=== PATIENT | female | born 1955 | race Caucasian/White ===

== ENCOUNTER → 2018-01-26 | Outpatient (CLI) | payer MEDICARE ==
--- NOTE | 2018-01-26 21:45 | BD ---
EXAMINATION TYPE: MG DEXA axial skeleton. DATE OF EXAM: 01/26/2018 COMPARISON: 07.17.2009 CLINICAL HISTORY: 62 YR OLD FEMALE....ICD-10 CODE: Z78.0 MENOPAUSAL STATE Height: 64 Weight: 190 FRAX RISK QUESTIONS: Alcohol (3 or more units per day): NO Family History (Parent hip fracture): NO FX Glucocorticoids (More than 3mos): NO (Ex: prednisone, prednisolone, methylprednisolone, dexamethasone, and hydrocortisone). History of Fracture in Adulthood: NO Secondary Osteoporosis: NO 1. Type 1 Diabetes: NO 2. Hyperthyroidism: NO 3. Menopause before 45: NO 4. Malnutrition: NO 5. Chronic liver disease: NO Rheumatoid Arthritis: NO Current Tobacco Use: NO RISK FACTORS HISTORY OF: Family History of Osteoporosis: YES, MOTHER NO FX Active: NO...USING CANE, UNSTEADY Diet low in dairy products/other sources of calcium: NO Postmenopausal woman: YES AT 50 YRS OLD Frequent falls: UNSTEADY, USING CANE Hyperparathyroidism: NO Adrenal Insufficiency: NO MEDICATIONS: Thyroid Medications: YES, SYNTHROID, 10 YRS Additional Medications: CALCIUM AND VIT D, ANTI ANXIETY AND ANTIDEPRESSANT, BP MEDS Additional History: NONE TO NOTE STATES PATIENT, EXCEPT OSTEOARTHRITIS.....PT IN SEVERE PAIN EXAM MEASUREMENTS: Bone mineral densitometry was performed using the [employer] System. Bone mineral density as measured about the Lumbar spine is: ----- L1-L4(G/cm2): 1.004 T Score Values are as follows: ----- L1: -2.9 ----- L2: -2.4 ----- L3: 1.1 ----- L4: -1.6 ----- L1-L4: -1.5 Bone mineral density has: Decreased -8.8% since study of: 07.17.2009 Bone mineral density about the R hip (g/cm2): 0.806 Bone mineral density about the L hip (g/cm2): 0.870 T Score values are as follows: -----R Neck: -1.9 -----L Neck: -1.9 -----R Total: -1.6 -----L Total: -1.1 Bone mineral density has: Decreased -10.0% since study of: 08.25.2009 FRAX%S: THERE IS A 9.3% CHANCE OF A MAJOR OSTEOPOROTIC FX AND A 1.1% FOR HIP FX....PROBABILITY OF F X IN 10 YRS TIME IMPRESSION: Osteoporosis (T Score less than -2.5) as averaged between T score values of L1 and L2. There is increased fracture risk and therapy is usually indicated based on age. Re-Screen 1-2 years. NOTE: T-SCORE=SD OF THE YOUNG ADULT MEAN.
--- NOTE | 2018-01-28 08:18 | MM ---
Reason for exam: screening (asymptomatic). Last mammogram was performed 3 years and 3 months ago. History: Patient is postmenopausal. Reduction of the left breast, 1991. Reduction of the right breast, 1991. Took estrogen for 4 years beginning at age 49. Took progesterone for 4 years beginning at age 49. Physical Findings: A clinical breast exam by your physician is recommended on an annual basis and results should be correlated with mammographic findings. MG Screening Mammo w CAD Bilateral CC and MLO view(s) were taken. Prior study comparison: October 24, 2014, bilateral MG screening mammo w CAD. January 22, 2011, bilateral digital screening mammo w/CAD. There are scattered fibroglandular densities. No significant changes when compared with prior studies. ASSESSMENT: Benign, BI-RAD 2 RECOMMENDATION: Routine screening mammogram of both breasts in 1 year.
== END | disposition home or self-care (01) ==
LOC: RADMAMWWP 14:40
PROVIDERS: ATTEND Family Medicine
DX: Z12.31 Encounter for screening mammogram for malignant neoplasm of breast (principal); M81.0 Age-related osteoporosis without current pathological fracture; Z78.0 Asymptomatic menopausal state
CPT/HCPCS: 77067; 77080

== ENCOUNTER 2018-05-31 07:18 | Day surgery (SDC) | payer MEDICARE ==
[2018-05-27 11:38] VITALS: BMI 31.4
[~2018-05-31 07:18] MED LIST: LACTATED RINGERS 1,000 ML IV SCH
[2018-05-31 08:01] VITALS: TEMP 97.7
[2018-05-31] MEDS ORDERED: LIDOCAINE 1% 20 ML VIAL (10MG/ML) FOR IV START INTRADERMA ONE (08:03)
[2018-05-31] MEDS ORDERED: PROPOFOL 10 MG/ML 20 ML VIAL IV ONE (08:14)
[2018-05-31] MEDS ORDERED: LIDOCAINE 1% INJ 10MG/ML (20 ML MDV) ONE (08:14)
--- NOTE | 2018-05-31 08:37 | P.PCN ---
Date of Procedure: 05/31/18 Procedure(s) Performed: Procedure: Total colonoscopy. Preoperative diagnosis: Screening for neoplasia. Postoperative diagnosis: Exam within normal limits. Preparation: HalfLytely prep. Sedation: Was provided by anesthesia. Brief clinical history: The patient is 62-year-old female who is scheduled for this evaluation for screening for neoplasia. She had a prior exam at age 50. At this time, he has no abdominal complaints, bleeding or anemia. Procedure: With the patient on her left lateral decubitus position and after informed consent and adequate sedation, the perianal area was inspected and it did not show any fissures or fistulas. There were no masses felt on digital rectal examination. The Olympus CFQ 160L video colonoscope was then inserted in the rectum in the usual fashion and advanced to the cecum. The mucosa appeared healthy. No polyps or tumors were seen or any obvious pathology. I retroflexed the endoscope in the rectum before the endoscope was withdrawn. The patient tolerated the procedure well. Plan: The patient was reassured. She will follow-up with you as planned and I recommended repeat exam in 10 years.
[2018-05-31 08:38] VITALS: RESP 16
[2018-05-31 08:49] VITALS: PULSE 81
[2018-05-31 09:05] VITALS: BP 127/86
== END 2018-05-31 09:11 | disposition home or self-care (01) ==
LOC: ORWHC2ENDO 07:18
DX: Z12.11 Encounter for screening for malignant neoplasm of colon (principal); M79.7 Fibromyalgia; K21.9 Gastro-esophageal reflux disease without esophagitis; I10 Essential (primary) hypertension; M19.90 Unspecified osteoarthritis, unspecified site; E07.9 Disorder of thyroid, unspecified; F41.9 Anxiety disorder, unspecified; Z79.890 Hormone replacement therapy; Z79.899 Other long term (current) drug therapy
CPT/HCPCS: J2001; J2704; G0121

== ENCOUNTER 2018-09-29 15:46 | Emergency (ER) | payer MEDICARE ==
[2018-09-29 16:00] VITALS: BP 149/92; PULSE 82; RESP 18; TEMP 98.2
[2018-09-29] MEDS ORDERED: DIPH,PERTUS(ACELL)TETVAC-LF 0.5 ML VIAL IM ONE (16:10)
--- NOTE | 2018-09-29 16:16 | ED ---
General Adult HPI - General Chief complaint: Fall Stated complaint: Fall Time Seen by Provider: 09/29/18 16:01 Source: patient, family, RN notes reviewed Mode of arrival: wheelchair Limitations: no limitations - History of Present Illness Initial comments: Patient is a pleasant 63-year-old female presenting to the emergency department following a fall. 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 Patient did land on her right arm. Patient has some history of previous arthritis of her right arm however discomfort is much more severe at this point. Discomfort is greatly increased with movement. Patient did scratch her nose and under her right eye. Patient only has mild discomfort of her nose. Patient denies any loss of consciousness. Patient denies being on any blood thinners. No confusion. No neck or back pain. No chest pain or dyspnea. No abdominal pain. No lower extremity or left upper extremity injury. - Related Data Home Medications Medication Instructions Recorded Confirmed ALPRAZolam [Xanax] 1 mg PO BID 01/01/16 05/27/18 Levothyroxine Sodium [Synthroid] 112 mcg PO DAILY 01/01/16 05/27/18 Lisinopril-Hctz 20-25 mg 1 tab PO DAILY 01/01/16 05/27/18 [Zestoretic 20-25] Multivitamins, Thera [Multivitamin] 1 tab PO DAILY 01/01/16 05/27/18 Oxybutynin Chloride [Ditropan XL] 15 mg PO DAILY 01/01/16 05/27/18 Calcium Carbonate [Calcium] 500 mg PO BID 05/01/16 05/27/18 Cyanocobalamin [Vitamin B-12] 1,000 mcg PO DAILY 05/01/16 05/27/18 Previous Rx's Medication Instructions Recorded Hydrocodone/Acetaminophen [Lenox 2 each PO Q6HR PRN #18 tab 09/29/18 5-325] Allergies Allergy/AdvReac Type Severity Reaction Status Date / Time No Known Allergies Allergy Verified 05/31/18 08:11 Review of Systems ROS Statement: Those systems with pertinent positive or pertinent negative responses have been documented in the HPI. ROS Other: All systems not noted in ROS Statement are negative. Constitutional: Denies: fever Eyes: Denies: eye pain ENT: Denies: ear pain Respiratory: Denies: cough Cardiovascular: Denies: chest pain, palpitations Endocrine: Denies: fatigue Gastrointestinal: Denies: abdominal pain Genitourinary: Denies: dysuria Musculoskeletal: Denies: back pain Skin: Denies: lesions Neurological: Denies: headache, weakness, confusion Past Medical History Past Medical History: Fibromyalgia, GERD/Reflux, Hypertension, Musculoskeletal Disorder, Osteoarthritis (OA), Thyroid Disorder Additional Past Medical History / Comment(s): CHRONIC LOWER BACK PAIN, History of Any Multi-Drug Resistant Organisms: None Reported Past Surgical History: Bariatric Surgery, Bladder Surgery, Breast Surgery Additional Past Surgical History / Comment(s): LAP BAND, BLADDER SLING, TAI. BREAST REDUCTION, EYE LID SURGERY Past Anesthesia/Blood Transfusion Reactions: No Reported Reaction, Motion Sickness Past Psychological History: Anxiety, Depression, Panic Disorder Smoking Status: Never smoker Past Alcohol Use History: Rare Past Drug Use History: None Reported - Past Family History Mother Family Medical History: Diabetes Mellitus, Hypertension Additional Family Medical History / Comment(s): OBESITY, NEUROPATHY-EVENTALLY IN W/C -COULDN'T FEEL FEET Father Family Medical History: No Reported History Additional Family Medical History / Comment(s): AGE 92-JUST DROVE UP FROM [place] FOR GRANDSON'S General Exam Limitations: no limitations General appearance: alert, in no apparent distress Head exam: Present: other (Nasal abrasions and swelling, mild. Abrasions under the right eye without significant tenderness to palpation.) Eye exam: Present: normal appearance, PERRL, EOMI. Absent: nystagmus ENT exam: Present: normal oropharynx Neck exam: Present: normal inspection, full ROM. Absent: tenderness Respiratory exam: Present: normal lung sounds bilaterally Cardiovascular Exam: Present: regular rate, normal rhythm GI/Abdominal exam: Present: soft. Absent: tenderness Extremities exam: Present: tenderness (Moderate tenderness right upper humerus region), other (Decreased range of motion right shoulder and right elbow secondary to pain. Distally the extremity is neurovascularly intact.) Back exam: Present: normal inspection. Absent: tenderness, vertebral tenderness Neurological exam: Present: alert, oriented X3, CN II-XII intact. Absent: motor sensory deficit Expanded Neurological exam: Present: protecting the airway Patient oriented to: Present: person, place, time Speech: Present: fluid speech Cranial nerves: EOM's Intact: Normal Motor strength exam: RUE: 5 (Limited range of motion secondary to pain does limit exam somewhat), LUE: 5 Eye Response: (4) open spontaneously Motor Response: (6) obeys commands Verbal Response: (5) oriented Psychiatric exam: Present: normal affect, normal mood Skin exam: Present: abrasion (Nasal and right infraorbital region) Course Vital Signs 09/29/18 15:55 Temperature 98.2 F Pulse Rate 82 Respiratory 18 Rate Blood Pressure 149/92 O2 Sat by Pulse 98 Oximetry Medical Decision Making - Medical Decision Making Patient reevaluated. Patient and family updated. - Radiology Data Interpreted by me: X-ray of the right humerus does show proximal right humeral fracture. X-ray of the nasal bones does show fracture. Disposition Clinical Impression: Fall, Nasal fracture, Proximal humerus fracture Disposition: HOME SELF-CARE Condition: Stable Instructions: Arm Fracture in Adults (ED), Nasal Fracture (ED) Additional Instructions: Please follow-up with primary care physician and orthopedics in the next couple of days for recheck. Ice to affected area. Return for increased pain, weakness , worsening or changing symptoms or other concerns. Do not take Lenox with Xanax. Prescriptions: Hydrocodone/Acetaminophen [Lenox 5-325] 2 each PO Q6HR PRN #18 tab PRN Reason: Pain Is patient prescribed a controlled substance at d/c from ED?: Yes When asked, does pt state using other controlled substances?: Yes If prescribed controlled substance>3 days was MAPS reviewed?: Prescribed <3 Days If opioid is for acute pain is fill amount 7 days or less?: Yes If Rx opioid, was Start Talking consent form obtained?: Yes Referrals: Jeff Seals MD [Primary Care Provider] - 1-2 days Time of Disposition: 16:37
--- NOTE | 2018-09-29 16:25 | XR ---
EXAMINATION TYPE: XR humerus RT DATE OF EXAM: 09/29/2018 CLINICAL HISTORY: Fall injury with pain. TECHNIQUE: Two views of the right humerus are obtained. COMPARISON: None. FINDINGS: Demineralization is seen. There is acute comminuted displaced fracture proximal humeral met aphysis with impaction of distal component. Some fracture fragments involving greater tuberosity are felt present. Glenohumeral joint is maintained. Visualized right elbow joint is felt within normal l imits. The overlying soft tissue appears within normal limits. IMPRESSION: Acute comminuted displaced fracture proximal humeral metaphysis.
--- NOTE | 2018-09-29 16:26 | XR ---
EXAMINATION TYPE: XR nasal bone DATE OF EXAM: 09/29/2018 COMPARISON: NONE HISTORY: Fall injury with pain and abrasions. TECHNIQUE: Complete nasal bones with both lateral projections on frontal projection. FINDINGS: Lucency through the nasal bridge is felt to reflect suture without significant displacement or soft tissue swelling. No acute displaced fracture is evident. Nasal septum remains midline. IMPRESSION: As above.
[2018-09-29] MEDS ORDERED: HYDROcodone/APAP 5-325MG 1 EACH TAB PO STA (16:34)
== END 2018-09-29 16:49 | disposition home or self-care (01) ==
LOC: EC 15:46
DX: S02.2XXA Fracture of nasal bones, initial encounter for closed fracture (principal); S42.201A Unspecified fracture of upper end of right humerus, initial encounter for closed fracture; I10 Essential (primary) hypertension; E07.9 Disorder of thyroid, unspecified; F41.0 Panic disorder [episodic paroxysmal anxiety]; F32.9 Major depressive disorder, single episode, unspecified; Z79.899 Other long term (current) drug therapy; Z23 Encounter for immunization; W10.9XXA Fall (on) (from) unspecified stairs and steps, initial encounter; Y92.89 Other specified places as the place of occurrence of the external cause
CPT/HCPCS: 70160; 90471; 90715; 99283

== ENCOUNTER → 2018-10-01 | Outpatient (CLI) | payer MEDICARE ==
--- NOTE | 2018-10-01 08:52 | CT ---
EXAMINATION TYPE: CT shoulder RT wo con DATE OF EXAM: 10/01/2018 COMPARISON: X-ray dated 09/29/2018 HISTORY: Fractured right shoulder CT DLP: 343.[address] of the right shoulder with reconstruction imaging. TECHNIQUE: Unenhanced CT of the right shoulder was performed with bone and soft tissue window setting s submitted in the axial coronal and sagittal planes. At a separate workstation 3-D TR imaging was o btained. FINDINGS: There is impacted right humeral neck fracture with the rotation of the humeral head ventral ly. A fracture extends into the greater tuberosity. There is also lesser tuberosity component noted. There is evidence of hemarthrosis. No additional fractures are seen within the [id number]. No evid ence for subacromial impingement as there is a flat acromium. No soft tissue masses appreciated. Vi sualized portions of the right lung demonstrate right apical scarring. IMPRESSION: 1. Proximal right humeral fracture as noted.
== END ==
LOC: RADCTMAIN 08:13
PROVIDERS: ATTEND Orthopaedic Surgery
DX: S42.201A Unspecified fracture of upper end of right humerus, initial encounter for closed fracture (principal)

== ENCOUNTER → 2018-12-06 | Outpatient (CLI) | payer MEDICARE ==
[~2018-12-06] MED LIST changes: +DENOSUMAB 60 MG/ML 1 ML SYRINGE SQ ONE; -LACTATED RINGERS 1,000 ML IV SCH
[2018-12-06 14:00] VITALS: BP 128/81; PULSE 66; RESP 16; TEMP 98.3
== END ==
LOC: PROCWHC3 13:44
PROVIDERS: ATTEND Family Medicine
DX: M80.00XS Age-related osteoporosis with current pathological fracture, unspecified site, sequela (principal)
CPT/HCPCS: 96372; J0897

== ENCOUNTER → 2019-03-17 | Outpatient (CLI) | payer MEDICARE ==
--- NOTE | 2019-03-21 08:05 | MM ---
Reason for exam: screening (asymptomatic). Last mammogram was performed 1 year and 2 months ago. History: Patient is postmenopausal. Reduction of the left breast, 1991. Reduction of the right breast, 1991. Took estrogen for 4 years beginning at age 49. Took progesterone for 4 years beginning at age 49. Physical Findings: A clinical breast exam by your physician is recommended on an annual basis and results should be correlated with mammographic findings. MG Screening Mammo w CAD Bilateral CC and MLO view(s) were taken. Prior study comparison: January 26, 2018, bilateral MG screening mammo w CAD. October 24, 2014, bilateral MG screening mammo w CAD. There are scattered fibroglandular densities. No significant changes when compared with prior studies. ASSESSMENT: Negative, BI-RAD 1 RECOMMENDATION: Routine screening mammogram of both breasts in 1 year.
== END | disposition home or self-care (01) ==
LOC: RADMAMWWP 14:41
PROVIDERS: ATTEND Obstetrics & Gynecology
DX: Z12.31 Encounter for screening mammogram for malignant neoplasm of breast (principal)
CPT/HCPCS: 77067

== ENCOUNTER → 2019-03-23 | Outpatient (CLI) | payer MEDICARE ==
[2019-03-23 16:45] VITALS: BP 123/84; PULSE 101; RESP 16; TEMP 98.1; BMI 29.9
--- NOTE | 2019-03-23 17:29 | P.HPBAR ---
Bariatric H&P - History & Physicial H&P Date: 03/23/19 History & Physicial: Visit/CC: band folow-up Patient initial contact: Initial weight: 111.13 kg Initial weight in pounds: 245.00 Height: 5 ft 5.5 in Initial BMI: 40.1 Last weight: Current weight: 83.007 kg Current weight in pounds: 183.00 Current BMI: 29.9 [place] body weight (based on NIH guidelines): 57.833 kg Excess body weight loss: 52.7% The patient is a 63 year-old F who presents for Bariatric Assessment. HPI: She is having problems with her band. She reports troubles with swallowing. Recommend referral to supervisor travel information center, also recommend esophogram Past Medical History Past Medical History: Fibromyalgia, GERD/Reflux, Hypertension, Musculoskeletal Disorder, Osteoarthritis (OA), Thyroid Disorder Additional Past Medical History / Comment(s): CHRONIC LOWER BACK PAIN, History of Any Multi-Drug Resistant Organisms: None Reported Past Surgical History: Bariatric Surgery, Bladder Surgery, Breast Surgery Additional Past Surgical History / Comment(s): LAP BAND, BLADDER SLING, TAI. BREAST REDUCTION, EYE LID SURGERY Past Anesthesia/Blood Transfusion Reactions: No Reported Reaction, Motion Sickness Past Psychological History: Anxiety, Depression, Panic Disorder Additional Psychological History / Comment(s): PT'S SON JUST 2 WEEKS AGO- AUTOPSY RESULTS NOT BACK YET-PT TEARY AT TIMES Smoking Status: Never smoker Past Alcohol Use History: Rare Past Drug Use History: None Reported - Past Family History Mother Family Medical History: Diabetes Mellitus, Hypertension Additional Family Medical History / Comment(s): OBESITY, NEUROPATHY-EVENTALLY IN W/C -COULDN'T FEEL FEET Father Family Medical History: No Reported History Additional Family Medical History / Comment(s): AGE 92-JUST DROVE UP FROM [place] FOR GRANDSON'S Surgical - Exam Vital Signs Temp Pulse Resp BP 98.1 F 101 H 16 123/84 03/23/19 16:41 03/23/19 16:41 03/23/19 16:41 03/23/19 16:41 Bariatric Checklist Checklist: Plan: Checklist: EGD: 1. Hiatal hernia: 2. H. Pylori: HgbA1c: Vitamin D: Smoking: Never smoker Primary care physician referral: Psychiatry clearance: Cardiology clearance: Sleep study: Diet journal: VTE risk score: VTE risk level: Rehab needs at discharge:
== END ==
LOC: BARWHC3 15:32
PROVIDERS: ATTEND Surgery Plastic and Reconstructive Surgery
DX: Z48.815 Encounter for surgical aftercare following surgery on the digestive system (principal); Z98.84 Bariatric surgery status
CPT/HCPCS: 99212

== ENCOUNTER → 2019-03-31 | Outpatient (CLI) | payer MEDICARE ==
--- NOTE | 2019-03-31 11:56 | FL ---
EXAMINATION TYPE: FL barium swallow DATE OF EXAM: 03/31/2019 LAP BANDING LIMITED ESOPHAGRAM: CLINICAL HISTORY: History of lap band placed 2001 with dysphagia per order. Some recent weight gain. Increasing epigastric and abdominal pain. Last change in fill slight increase 2 years ago. TECHNIQUE: Limited esophagram is performed utilizing 2-3 oz of barium. A total of 0.25 minutes of fl uoroscopic time was utilized during procedure. 35 spot images are saved to PACS system. COMPARISON: None. FINDINGS: Pre-procedure slimer image shows lap band in satisfactory position in proximal stomach ju st below the gastroesophageal junction. Angle is felt within normal limits. Overall nonobstructive emmanuelle wel gas pattern. Dextroconvex scoliosis centered about the lumbar spine is noted. The patient then drank oral contrast. There is satisfactory flow of contrast along the course of the esophagus. There is good flow of contrast along the course of the lap band, there is no evidence of contrast extravasation to suggest leak. There is no lap band slippage appreciated. IMPRESSION: No evidence of lap band slippage or significant obstruction.
[2019-03-31 13:14] LABS: HGB 13.9 gm/dL (11.4-16.0); MCHC 33.1 g/dL (31.0-37.0); MCV 96.8 fL (80.0-100.0); Mean Platelet Volume 6.9; Platelet Count 280 k/uL (150-450); RBC 4.34 m/uL (3.80-5.40); RDW 14.1 % (11.5-15.5); WBC 7.3 k/uL (3.8-10.6)
[2019-03-31 13:28] LABS: Partial Thromboplastin Time 26.8 sec (22.0-30.0); Prothrombin Time 10.4 sec (9.0-12.0)
[2019-03-31 13:31] LABS: ALT 37 U/L (9-52); AST 30 U/L (14-36); Albumin 4.7 g/dL (3.5-5.0); Alkaline Phosphatase 81 U/L (38-126); Anion Gap 10 mmol/L; Blood Urea Nitrogen 20 mg/dL (7-17); Calcium 10.3 mg/dL (8.4-10.2); Carbon Dioxide 28 mmol/L (22-30); Chloride 98 mmol/L (98-107); Cholesterol 239 mg/dL (<200); Glucose 80 mg/dL (74-99); HDL Cholesterol 63 mg/dL (40-60); LDL Cholesterol,Calculated 136 mg/dL (0-99); Magnesium 1.5 mg/dL (1.6-2.3); Phosphorus 3.3 mg/dL (2.5-4.5); Potassium 4.3 mmol/L (3.5-5.1); Sodium 136 mmol/L (137-145); Total Bilirubin 0.7 mg/dL (0.2-1.3); Total Protein 7.5 g/dL (6.3-8.2); Triglycerides 199 mg/dL (<150)
[2019-03-31 18:08] LABS: Parathyroid Hormone Intact 45.7 pg/mL (14.0-72.0)
[2019-03-31 18:45] LABS: Iron Saturation 38.34 (12.00-45.00)
[2019-03-31 18:53] LABS: Vitamin D 25 Hydroxy 34.6 ng/mL (30.0-100.0)
[2019-03-31 19:04] LABS: Folate, Serum >24.0 ng/mL
[2019-03-31 22:13] LABS: Hemoglobin A1C 5.2 % (4.0-6.0)
[2019-04-01 12:14] LABS: Zinc, Serum 69 ug/dL (60-130)
[2019-04-02 19:33] LABS: Selenium 135 mcg/L (63-160)
[2019-04-04 07:41] LABS: Vit B1(Thiamine) 70 ug/L (38-122)
[2019-04-04 08:31] LABS: Vitamin A 70 ug/dL (38-106)
== END | disposition home or self-care (01) ==
LOC: RADFLWHC 10:39
PROVIDERS: ATTEND Surgery Plastic and Reconstructive Surgery
DX: R13.10 Dysphagia, unspecified (principal); E66.01 Morbid (severe) obesity due to excess calories; E21.1 Secondary hyperparathyroidism, not elsewhere classified; D50.9 Iron deficiency anemia, unspecified; E55.9 Vitamin D deficiency, unspecified; N19 Unspecified kidney failure; K74.1 Hepatic sclerosis; K50.90 Crohn's disease, unspecified, without complications; K90.9 Intestinal malabsorption, unspecified
CPT/HCPCS: 36415; 74220; 80053; 80061; 82306; 82525; 82607; 82728; 82746; 83036; 83540; 83550; 83735; 83970; 84100; 84134; 84255; 84425; 84443; 84590; 84630; 85027; 85610; 85730

== ENCOUNTER → 2019-05-05 | Outpatient (CLI) | payer MEDICARE ==
[2019-05-05 10:32] VITALS: BP 130/78; PULSE 79; TEMP 98.3; BMI 30.4
--- NOTE | 2019-05-05 10:49 | P.PN ---
Subjective Progress Note Date: 05/05/19 DATE OF CONSULTATION: 05/05/2019 CHIEF COMPLAINT: Morbid obesity. HISTORY OF PRESENT ILLNESS: Yesi Gastelum is 63-year-old female who comes in with an adjustable gastric band from 2001. Her highest weight at that time was 245 pounds. She was referred to see the prosecuting attorney. Now she reports long stand ing problems since her band. She has been diagnosed with Lupus! She is aware that lupus is contraindicated for her band. At her height of 5 foot 5.5 inches, her ideal body weight is 149 pounds. Her h ighest weight was 245 pounds. Her body mass index was 40.9. Today she comes in weighing 185 pounds from 183 pounds, 1 month ago. She has gained 3 pounds in 1 month. Lifetime weight loss of 60 pounds. Percent excess weight loss of 62% lifetime. BMI down to 30.4. PAST MEDICAL HISTORY: 1. Morbid obesity due to excess calories, BMI 40.9 2. Hypertension. 3. Hypothyroidism. 4. Depression. 5. Vitamin B12 deficiency. 6. Vitamin D deficiency. 7. Anxiety. 8. Fibromyalgia. 9. Osteoarthritis. 10. Bladder urgency. PAST SURGICAL HISTORY: 1. Adjustable gastric band placement. 2. Bladder sling operation. 3. Bilateral breast reduction. 4. Blepharoplasty. MEDICATIONS: Home Medications Medication Instructions Recorded Confirmed ALPRAZolam [Xanax] 1 mg PO BID 01/01/16 05/05/19 Levothyroxine Sodium [Synthroid] 112 mcg PO DAILY 01/01/16 05/05/19 Lisinopril-Hctz 20-25 mg 1 tab PO DAILY 01/01/16 05/05/19 [Zestoretic 20-25] Multivitamins, Thera [Multivitamin] 1 tab PO DAILY 01/01/16 05/05/19 Calcium Carbonate [Calcium] 500 mg PO BID 05/01/16 05/05/19 Cyanocobalamin [Vitamin B-12] 1,000 mcg PO DAILY 05/01/16 05/05/19 Desvenlafaxine Succinate [Pristiq] 100 mg PO DAILY 03/23/19 05/05/19 Hydroxychloroquine Sulfate 200 mg PO BID 05/05/19 05/05/19 [Plaquenil] Pilocarpine [Salagen] 5 mg PO TID 05/05/19 05/05/19 predniSONE 0 mg PO DIRECTED 05/05/19 05/05/19 ALLERGIES: Denies. SOCIAL HISTORY: Lifelong tobacco user. No reports of recent alcohol use. FAMILY HISTORY: Pertinent for diabetes, hypertension including neuropathy. REVIEW OF SYSTEMS: CONSTITUTIONAL: At her height of 5 foot 5.5 inches, her ideal body weight is 149 pounds. Her highest weight was 245 pounds. Her body mass index was 40.9. Today she comes in weighing 183 pounds from 177 pounds. She has gained 6 pounds in 3 years. Lifetime weight loss of 62 pounds. Percent excess weight loss of 65% lifetime. BMI down to 30.0. ENDOCRINE: History of hypothyroidism. No reports of diabetes. GASTROINTESTINAL: Denies the any moderate gastroesophageal reflux disease. MUSCULOSKELETAL: Reports osteoarthritis, including for fibromyalgia. New diagnosis of Lupus. NEURO: Reports neuropathy of the bilateral lower extremities including intentional tremors. PSYCH: History of depression including anxiety. HEMATOLOGIC: No reports of easy bruising or bleeding. HEENT: Denies any trouble with vision, hearing or nosebleeds. No difficulty swallowing. LYMPHATIC: The patient denies any lumps and bumps around the neck. CARDIOVASCULAR: Denies any chest pain, palpitations, or recent heart attacks. GENITOURINARY: Denies any blood in urine or increased urinary frequency. SKIN: No cancer. No current rash. PHYSICAL EXAM: VITAL SIGNS: 5 foot 5.5 inches, 185 pounds. Body mass index 30.4 Vital Signs Temp 98.3 F 05/05/19 10:28 Pulse 79 05/05/19 10:28 Resp BP 130/78 05/05/19 10:28 Pulse Ox GENERAL: Well-developed female in no acute distress. HEENT: No scleral icterus. Extraocular muscles grossly intact. Moist buccal mucosa. NECK: Supple without lymphadenopathy. CHEST: Nonlabored respirations with equal bilateral excursions. CARDIOVASCULAR: Regular rate and rhythm. ABDOMEN: Obese, soft. Palpable lap band port left upper quadrant. MUSCULOSKELETAL: No clubbing, cyanosis, or edema. NEURO: No focal or lateralizing signs. Intentional tremors noted. Cranial nerves II through XII grossly within normal limits. PSYCH: Flat affect. Alert and oriented to person, place and time. SKIN: Well perfused. Good skin turgor. ASSESSMENT: 1. Morbid obesity due to excess caloric intake. 2. Body mass index reduced from 40.8 down to 30.0. 3. History of adjustable gastric band. 4. Fibromyalgia and myalgias following placement of adjustable gastric band. 5. Encounter for adjustment of gastric band. 6. History of intentional tremors. 7. Hypothyroidism. 8. History of secondary hyperparathyroidism secondary to inadequate intake. 9. History of panic disorder. 10. History of depression. 11. New diagnosis of Lupus 12. Gastroesophageal reflux disease. PLAN: 1. She has developed an intolerance to her band. Recommend removal of the band with diagnosis of Lupus. 2. Recommend upper endoscopy for the severity of her gastroesophageal reflux disease. 3. For any abnormal EKG, she will require cardiac clearance ADDENDUM: STUDIES: EKG obtained with normal sinus rhythm. Objective - Vital Signs Vital signs: Vital Signs Temp 98.3 F 05/05/19 10:28 Pulse 79 05/05/19 10:28 Resp BP 130/78 05/05/19 10:28 Pulse Ox Intake & Output 05/04/19 05/05/19 05/05/19 18:59 06:59 18:59 Weight 84.187 kg
== END | disposition home or self-care (01) ==
LOC: BARWHC3 09:50
PROVIDERS: ATTEND Surgery Plastic and Reconstructive Surgery
DX: Z46.51 Encounter for fitting and adjustment of gastric lap band (principal); E66.01 Morbid (severe) obesity due to excess calories; M79.7 Fibromyalgia; E03.9 Hypothyroidism, unspecified; M32.9 Systemic lupus erythematosus, unspecified; K21.9 Gastro-esophageal reflux disease without esophagitis; F17.200 Nicotine dependence, unspecified, uncomplicated; Z68.30 Body mass index [BMI] 30.0-30.9, adult; Z86.59 Personal history of other mental and behavioral disorders; Z86.39 Personal history of other endocrine, nutritional and metabolic disease; Z87.898 Personal history of other specified conditions; Z98.84 Bariatric surgery status; Z79.899 Other long term (current) drug therapy
CPT/HCPCS: 93005; G0463; 99211

== ENCOUNTER → 2019-06-22 | Outpatient (CLI) | payer MEDICARE ==
[2019-06-22 14:39] LABS: Basophils % (A) 0 %; Eosinophils % (A) 0 %; HCT 45.1 % (34.0-46.0); HGB 14.6 gm/dL (11.4-16.0); Lymphocytes # (A) 1.4 k/uL (1.0-4.8); Lymphocytes % (A) 19 %; MCH 31.4 pg (25.0-35.0); MCHC 32.4 g/dL (31.0-37.0); MCV 97.1 fL (80.0-100.0); Mean Platelet Volume 6.5; Monocytes # (A) 0.4 k/uL (0-1.0); Monocytes % (A) 5 %; Neutrophils # (A) 5.5 k/uL (1.3-7.7); Neutrophils % (A) 74 %; Platelet Count 292 k/uL (150-450); RBC 4.65 m/uL (3.80-5.40); RDW 12.8 % (11.5-15.5); WBC 7.4 k/uL (3.8-10.6)
[2019-06-22 14:51] LABS: ALT 32 U/L (9-52); AST 41 U/L (14-36); African American GFR (CKD) >90 (>60 ml/min/1.73 sqM); Albumin 4.6 g/dL (3.5-5.0); Alkaline Phosphatase 77 U/L (38-126); Anion Gap 10 mmol/L; Blood Urea Nitrogen 22 mg/dL (7-17); Calcium 10.3 mg/dL (8.4-10.2); Carbon Dioxide 29 mmol/L (22-30); Chloride 102 mmol/L (98-107); Glucose 90 mg/dL (74-99); Non-African American GFR(CKD) 82 (>60 ml/min/1.73 sqM); Potassium 4.2 mmol/L (3.5-5.1); Sodium 141 mmol/L (137-145); Total Bilirubin 0.2 mg/dL (0.2-1.3); Total Protein 7.6 g/dL (6.3-8.2)
== END | disposition home or self-care (01) ==
LOC: LABPAT 13:55
PROVIDERS: ATTEND Surgery Plastic and Reconstructive Surgery
DX: Z01.812 Encounter for preprocedural laboratory examination (principal)
CPT/HCPCS: 80053; 85025

== ENCOUNTER 2019-07-04 06:13 | Day surgery (SDC) | payer MEDICARE ==
[2019-06-23 10:18] VITALS: BMI 30.1
--- NOTE | 2019-07-03 21:35 | P.GSHP ---
History of Present Illness H&P Date: 07/04/19 DATE OF CONSULTATION: 07/04/2019 CHIEF COMPLAINT: Complications from adjustable gastric band HISTORY OF PRESENT ILLNESS: Yesi Gastelum is a very pleasant 63-year-old female who comes in with an adjustable gastric band from 2001. Her highest weight at that time was 245 pounds. Her lowest weight with the band was 153 pounds. She is having problems with her band. She reports troubles with swallowing. She also reports that since her band, she has developed multiple myalgias including joint pain and neurological issues including tremors. Now she presents for further evaluation of her band and neurological symptoms since her band placement. At her height of 5 foot 5.5 inches, her ideal body weight is 149 pounds. Her highest weight was 245 pounds. Her body mass index was 40.9. Today she comes in weighing 183 pounds from 177 pounds. She has gained 6 pounds in 3 years. Lifetime weight loss of 62 pounds. Percent excess weight loss of 65% lifetime. BMI down to 30.0. PAST MEDICAL HISTORY: 1. Morbid obesity due to excess calories, BMI 40.9 2. Hypertension. 3. Hypothyroidism. 4. Depression. 5. Vitamin B12 deficiency. 6. Vitamin D deficiency. 7. Anxiety. 8. Fibromyalgia. 9. Osteoarthritis. 10. Bladder urgency. PAST SURGICAL HISTORY: 1. Adjustable gastric band placement. 2. Bladder sling operation. 3. Bilateral breast reduction. 4. Blepharoplasty. MEDICATIONS: Home Medications Medication Instructions Recorded Confirmed ALPRAZolam [Xanax] 1 mg PO BID 01/01/16 05/05/19 Levothyroxine Sodium [Synthroid] 112 mcg PO DAILY 01/01/16 05/05/19 Lisinopril-Hctz 20-25 mg 1 tab PO DAILY 01/01/16 05/05/19 [Zestoretic 20-25] Multivitamins, Thera [Multivitamin] 1 tab PO DAILY 01/01/16 05/05/19 Calcium Carbonate [Calcium] 500 mg PO BID 05/01/16 05/05/19 Cyanocobalamin [Vitamin B-12] 1,000 mcg PO DAILY 05/01/16 05/05/19 Desvenlafaxine Succinate [Pristiq] 100 mg PO DAILY 03/23/19 05/05/19 Hydroxychloroquine Sulfate 200 mg PO BID 05/05/19 05/05/19 [Plaquenil] Pilocarpine [Salagen] 5 mg PO TID 05/05/19 05/05/19 predniSONE 0 mg PO DIRECTED 05/05/19 05/05/19 ALLERGIES: Denies. SOCIAL HISTORY: Lifelong tobacco user. No reports of recent alcohol use. FAMILY HISTORY: Pertinent for diabetes, hypertension including neuropathy. REVIEW OF SYSTEMS: CONSTITUTIONAL: At her height of 5 foot 5.5 inches, her ideal body weight is 149 pounds. Her highest weight was 245 pounds. Her body mass index was 40.9. Today she comes in weighing 183 pounds from 177 pounds. She has gained 6 pounds in 3 years. Lifetime weight loss of 62 pounds. Percent excess weight loss of 65% lifetime. BMI down to 30.0. ENDOCRINE: History of hypothyroidism. No reports of diabetes. GASTROINTESTINAL: Denies the any moderate gastroesophageal reflux disease. MUSCULOSKELETAL: Reports osteoarthritis, including for fibromyalgia. NEURO: Reports neuropathy of the bilateral lower extremities including intentional tremors. PSYCH: History of depression including anxiety. HEMATOLOGIC: No reports of easy bruising or bleeding. HEENT: Denies any trouble with vision, hearing or nosebleeds. No difficulty swallowing. LYMPHATIC: The patient denies any lumps and bumps around the neck. CARDIOVASCULAR: Denies any chest pain, palpitations, or recent heart attacks. GENITOURINARY: Denies any blood in urine or increased urinary frequency. SKIN: No cancer. No current rash. PHYSICAL EXAM: VITAL SIGNS: 5 foot 5.5 inches, 183 pounds. Body mass index 30.0 GENERAL: Well-developed female in no acute distress. HEENT: No scleral icterus. Extraocular muscles grossly intact. Moist buccal mucosa. NECK: Supple without lymphadenopathy. CHEST: Nonlabored respirations with equal bilateral excursions. CARDIOVASCULAR: Regular rate and rhythm. ABDOMEN: Obese, soft. Palpable lap band port left upper quadrant. MUSCULOSKELETAL: No clubbing, cyanosis, or edema. NEURO: No focal or lateralizing signs. Intentional tremors noted. Cranial nerves II through XII grossly within normal limits. PSYCH: Flat affect. Alert and oriented to person, place and time. SKIN: Well perfused. Good skin turgor. ASSESSMENT: 1. Morbid obesity due to excess caloric intake. 2. Body mass index reduced from 40.8 down to 30.0. 3. History of adjustable gastric band. 4. Fibromyalgia and myalgias following placement of adjustable gastric band. 5. Encounter for adjustment of gastric band. 6. History of intentional tremors. 7. Hypothyroidism. 8. History of secondary hyperparathyroidism secondary to inadequate intake. 9. History of panic disorder. 10. History of depression. PLAN: 1. Recommend removal of adjustable gastric bands Past Medical History Past Medical History: Fibromyalgia, GERD/Reflux, Hypertension, Musculoskeletal Disorder, Osteoarthritis (OA), Thyroid Disorder Additional Past Medical History / Comment(s): CHRONIC LOWER BACK & NECK PAIN, SPINAL STENOSIS, DDD, CURVATURE OF SPINE- SEES DR ROSS FOR THERAPY. , IBS ., HEMORRHOIDS., LUPUS, STATES GENERALIZED PAIN., USES WALKER AND CANE, HAS KNIFE GRINDER WEEKLY., HX OF FALL AND BROKEN ARM 09/2018. PT STATES NO CONTROL OVER BOWELS AND BLADDER- WEARS PADS. History of Any Multi-Drug Resistant Organisms: None Reported Past Surgical History: Bariatric Surgery, Bladder Surgery, Breast Surgery Additional Past Surgical History / Comment(s): LAP BAND (2001), BLADDER SLING, TAI. BREAST REDUCTION, EYE LID SURGERY Past Anesthesia/Blood Transfusion Reactions: No Reported Reaction, Motion Sickness Past Psychological History: Anxiety, Depression, Panic Disorder Additional Psychological History / Comment(s): . Smoking Status: Never smoker Past Alcohol Use History: None Reported Past Drug Use History: None Reported Additional Drug Use History / Comment(s): STATES SHE TRIED CBD OIL IN THE PAST. - Past Family History Mother Family Medical History: Diabetes Mellitus, Hypertension Additional Family Medical History / Comment(s): OBESITY, NEUROPATHY-EVENTALLY IN W/C -COULDN'T FEEL FEET Father Family Medical History: No Reported History Additional Family Medical History / Comment(s): AGE 92-JUST DROVE UP FROM [place] FOR GRANDSON'S Medications and Allergies Home Medications Medication Instructions Recorded Confirmed Type ALPRAZolam [Xanax] 1 mg PO BID 01/01/16 06/23/19 History Levothyroxine Sodium [Synthroid] 112 mcg PO DAILY 01/01/16 06/23/19 History Lisinopril-Hctz 20-25 mg 1 tab PO DAILY 01/01/16 06/23/19 History [Zestoretic 20-25] Multivitamins, Thera [Multivitamin] 1 tab PO DAILY 01/01/16 06/23/19 History Calcium Carbonate [Calcium] 1,000 mg PO BID 05/01/16 06/23/19 History Cyanocobalamin [Vitamin B-12] 1,000 mcg PO DAILY 05/01/16 06/23/19 History Desvenlafaxine Succinate [Pristiq] 100 mg PO DAILY 03/23/19 06/23/19 History Hydroxychloroquine Sulfate 200 mg PO BID 05/05/19 06/23/19 History [Plaquenil] Pilocarpine [Salagen] 5 mg PO TID 05/05/19 06/23/19 History Acetaminophen [Tylenol Arthritis] 1,300 mg PO DAILY PRN 06/23/19 06/23/19 H istory Acetaminophen/Diphenhydramine 2 tab PO HS PRN 06/23/19 06/23/19 History [Tylenol PM 500-25mg] Naproxen Sodium [Aleve] 220 mg PO DAILY PRN 06/23/19 06/23/19 History Propylene Glycol [Systane Complete] 1 drop BOTH EYES BID 06/23/19 06/23/19 History Allergies Allergy/AdvReac Type Severity Reaction Status Date / Time codeine AdvReac Unknown Headache Verified 06/23/19 09:25 hydrocodone [From [place]] AdvReac Unknown FELT Verified 06/28/19 10:35 SPACEY, NO CONTROL- DOES NOT WANT.
[~2019-07-04 06:13] MED LIST changes: -DENOSUMAB 60 MG/ML 1 ML SYRINGE SQ ONE; +DEXAMETHASONE SOD PHOSPHATE 10 MG/ML 1 ML VIAL IV ONE; +KETOROLAC 30 MG/ML 1 ML VIAL IVP SCH; +LACTATED RINGERS 1,000 ML IV SCH; +LIDOCAINE 1% 20 ML VIAL (10MG/ML) FOR IV START INTRADERMA PRN; +ONDANSETRON 4 MG/2 ML VIAL IVP PRN; +SCOPOLAMINE 1.5MG/72HR PATCH TRANSDERM ONE
[2019-07-04] MEDS ORDERED: ENOXAPARIN 40 MG/0.4 ML SYRINGE SQ ONE (06:30)
[2019-07-04] MEDS ORDERED: PANTOPRAZOLE 40 MG/10 ML VIAL IV ONE (06:30)
[2019-07-04] MEDS ORDERED: CHLORHEXIDINE GLUCONATE 15 ML CUP MUCOUS MEM ONE (06:30)
[2019-07-04] MEDS ORDERED: PROPOFOL 10 MG/ML 20 ML VIAL IV ONE (07:46)
[2019-07-04] MEDS ORDERED: fentaNYL (PF) 50 MCG/ML 2 ML AMP ONE (07:46)
[2019-07-04] MEDS ORDERED: ROCURONIUM BROMIDE 10 MG/ML 10 ML VIAL IV ONE (07:46)
[2019-07-04] MEDS ORDERED: NEOSTIGMINE 1 MG/ML 10 ML VIAL ONE (07:46)
[2019-07-04] MEDS ORDERED: PHENYLEPHRINE-0.9% NACL SYG 1 MG/10 ML SYRINGE ONE (07:46)
[2019-07-04] MEDS ORDERED: GLYCOPYRROLATE 0.2 MG/ML 2 ML VIAL ONE (07:46)
[2019-07-04] MEDS ORDERED: LIDOCAINE 1% INJ 10MG/ML (20 ML MDV) ONE (07:46)
[2019-07-04] MEDS ORDERED: SUCCINYLCHOLINE CHLORIDE 100 MG/5 ML SYR IV ONE (07:46)
[2019-07-04] MEDS ORDERED: MIDAZOLAM 2 MG/2 ML VIAL ONE (07:46)
[2019-07-04] MEDS ORDERED: BUPIVACAIN-EPI 0.25%-1:200,000 30 ML VIAL SQ ONE (08:29)
[2019-07-04] MEDS ORDERED: LACTATED RINGERS 1,000 ML IV ONE (09:17)
--- NOTE | 2019-07-04 09:28 | P.OP ---
Date of Procedure: 07/04/19 Preoperative Diagnosis: Locations were adjustable gastric band, history of morbid obesity Postoperative Diagnosis: Same, peritoneal adhesions, moderate to severe gastritis without bleeding Procedure(s) Performed: Robotic-assisted laparoscopic removal of adjustable gastric band and all components, extensive lysis of adhesions 30 minutes, esophagogastroduodenoscopy with biopsies on the antrum Anesthesia: GETA, local Surgeon: Lexa Lima Estimated Blood Loss (ml): 10 Pathology: other Condition: stable (Antrum cold forceps biopsies) Disposition: same day Operative Findings: 1. Moderate adhesions along the epigastrium including right upper quadrant and right lower quadrant omentum to abdominal wall 2. First-generation Allergan adjustable gastric band removed in total 3. Adjustable gastric band port found along the right upper quadrant/epigastrium removed in total 4. Cold forceps biopsies along antrum first moderate to severe gastritis Description of Procedure: Date of Procedure: 07/04/19 SURGEON: LEXA LIMA MD PREOPERATIVE DIAGNOSES: 1. Morbid obesity due to excess caloric intake, improved 2. Body mass index reduced from 40.8 down to 30.0 3. History of adjustable gastric band 4. Fibromyalgia and myalgias following placement of adjustable gastric band. 5. Encounter for adjustment of gastric band 6. History of intentional tremors 7. Hypothyroidism 8. History of secondary hyperparathyroidism 9. History of panic disorder 10. History of depression 11. Complications from adjustable gastric band POSTOPERATIVE DIAGNOSES: 1. Morbid obesity due to excess caloric intake, improved 2. Body mass index reduced from 40.8 down to 30.0 3. History of adjustable gastric band 4. Fibromyalgia and myalgias following placement of adjustable gastric band. 5. Encounter for adjustment of gastric band 6. History of intentional tremors 7. Hypothyroidism 8. History of secondary hyperparathyroidism 9. History of panic disorder 10. History of depression 11. Complications from adjustable gastric band 12. Abdominal peritoneal adhesions greater omentum to abdominal wall 13. Moderate to severe superficial gastritis without bleeding OPERATION: 1. Robotic-assisted da Jose Xi laparoscopic removal of adjustable gastric band and all components. 2. Robotic-assisted da Jose Xi laparoscopic lysis of adhesions, 30 minutes 3. Intraoperative esophagogastroduodenoscopy with cold forceps biopsies along antrum. ANESTHESIA: General with local anesthetic. ESTIMATED BLOOD LOSS: 10 mL SPECIMENS REMOVED: 1. Adjustable gastric band and components 2. Antrum COMPLICATIONS: None. Operative Findings: 1. Moderate adhesions along the epigastrium including right upper quadrant and right lower quadrant omentum to abdominal wall 2. First-generation Allergan adjustable gastric band removed in total 3. Adjustable gastric band port found along the right upper quadrant/epigastrium removed in total 4. Cold forceps biopsies along antrum with moderate to severe gastritis INDICATIONS: The patient is a 54-year-old male who presents with complications of her adjustable gastric band. Surgical options were described including removal of the band. As she has persistent pain and discomfort from the band, she had elected for removal of the adjustable gastric band and port including all components. Benefits and risks of the procedure were described. Informed consent was obtained. DESCRIPTION: The patient was brought into the operating room theater. She was placed supine. She had received Lovenox subcutaneously for DVT prophylaxis. Additionally she Peridex oral solution as an oral decontaminant was placed per anesthesia. After general induction, the abdomen was prepped and draped in standard sterile fashion. Ioban draping was placed along the abdomen. A robotic da Jose Xi system was prepped and primed. Prior to incision, a timeout protocol was performed and confirmed with the surgical team. Initial attention was brought to removal of the adjustable gastric band port at the left upper abdomen. Proposed incision sites were localized with anesthetic. A transverse 3 cm incision was placed over the adjustable gastric band port site using #11 blade. The incision was deepened to the subcutaneous tissue using electrocautery Bovie cautery. Depth of the subcutaneous tissue was over 8 cm adding more difficulty to her case. The port was identified and circumferentially dissected free from the surrounding tissues. Once freed, the port was removed from the pocket and placed onto the skin. Attention was now brought to the intra-abdominal component of the procedure the removal of the adjustable gastric band. Incisions were proposed at 12 cm from the xiphoid. Proposed port sites were marked with indelible marker along the anterior axillary line bilaterally, mid clavicular line bilaterally with each port marked 10 cm from each other. A 5 mm 0 degrees laparoscopic trocar entry was performed along the left upper quadrant. The abdomen was insufflated to 15 mmHg pressure, which she tolerated well. Diagnostic laparoscopy demonstrated no injury to bowel, viscera, or mesentery. The liver was large consistent with hepatomegaly. An 8 mm camera port was placed left lateral to the umbilicus at the epigastrium, 12 cm distal to the xiphoid. Next, 8-mm port was placed along the right mid abdomen. The 5 mm port was exchanged for 8 mm trocar. A medium sized Bud liver retractor was used to elevate the left lobe of the liver. The robot was docked along the left lateral abdomen. The patient was repositioned in reverse Trendelenburg position, 16-degrees. A 30-degree camera was used. Using a Prograsp for arm 3, including scissors with cautery for arm 1, the robotic system was docked and primed as described. Instruments were interchanged by the administration assistant. I had sat at the console. The port was followed with its tubing to the gastric band. The gastrohepatic ligament was scarred from prior surgery. The posterior portion of the stomach was prolapsed around the ALLERGAN band. Using scissors with cautery, the cicatrix of the port was incised. The band was then freed. The band was unbuckled and cut. The tubing was cut approximately 5 cm distal to the actual adapter. The tubing and port was removed by the administration assistant under d irect mobilization. The band was removed in total without injury to the stomach. Hemostasis was excellent. I then went to the head of the bed to perform intraoperative esophagogastroduodenoscopy to evaluate for gastritis and any full thickness injury to the stomach. An Olympus gastroscope was passed from the posterior oropharynx down to the esophagus, where the squamocolumnar junction was found LA grade B erosive esophagitis, chronic changes. The stomach was entered and bile was found and suctioned. Chronic gastritis was found along the antrum without gastric ulcers or duodenitis or duodenal ulcers. Retroflexion of the scope confirmed a Hill grade 2 lower esophageal valve. No full-thickness erosion from the prior band was encountered. No blood was found within the stomach. Mild gastritis with identified and cold forceps biopsies obtained along the antrum. The stomach was desufflated. The patient tolerated the procedure well. No evidence of leak was encountered from the removal of the band. The scope was removed with desufflation of the stomach. I re-scrubbed into the case. The adjustable gastric band was removed from the abdominal cavity via 15 mm port that was exchanged for the 8-mm port at the left upper abdomen. Diagnostic laparoscopy demonstrated complete removal of all foreign body. Along the left upper quadrant 15 mm port site, Israel Rose and 0 Vicryl sutures were used to close the fascia. All instruments and pneumoperitoneum were evacuated from the abdominal cavity. The port extraction site was hemostatic. The port site was irrigated using normal saline and hydrogen peroxide. The incisions were reapproximated using 4- 0 Monocryl in a subcuticular interrupted fashion. Optifoam dressing was placed over the port extraction site. At the end of the procedure, needle, sponge and instrument counts were verified correct by the plastics technician. The patient had tolerated the procedure well. An abdominal binder was placed. The patient was transferred to Postanesthesia Care Unit in stable condition. Postoperative findings with intraoperative images were discussed with the patient's family who were pleased with the level of care. Plan - Discharge Summary Discharge Rx Participant: Yes New Discharge Prescriptions: New Acetaminophen Tab [Tylenol Tab] 500 mg PO Q6H PRN #30 tablet PRN Reason: Pain Ibuprofen [Motrin] 600 mg PO Q8HR PRN #20 tab PRN Reason: Pain Omeprazole 40 mg PO DAILY #30 capsule. No Action Multivitamins, Thera [Multivitamin] 1 tab PO DAILY Lisinopril-Hctz 20-25 mg [Zestoretic 20-25] 1 tab PO DAILY Levothyroxine Sodium [Synthroid] 112 mcg PO DAILY ALPRAZolam [Xanax] 1 mg PO BID Calcium Carbonate [Calcium] 1,000 mg PO BID Cyanocobalamin [Vitamin B-12] 1,000 mcg PO DAILY Desvenlafaxine Succinate [Pristiq] 100 mg PO DAILY Pilocarpine [Salagen] 5 mg PO TID Hydroxychloroquine Sulfate [Plaquenil] 200 mg PO BID Acetaminophen/Diphenhydramine [Tylenol PM 500-25mg] 2 tab PO HS PRN PRN Reason: Pain Acetaminophen [Tylenol Arthritis] 1,300 mg PO DAILY PRN PRN Reason: Pain Propylene Glycol [Systane Complete] 1 drop BOTH EYES BID Naproxen Sodium [Aleve] 220 mg PO DAILY PRN PRN Reason: Pain Nystatin 100,000 Unit/ml Susp [Mycostatin Oral Susp] 1 tsp PO DAILY Fluconazole [Diflucan] 100 mg PO DAILY #14 tablet Discharge Medication List ALPRAZolam [Xanax] 1 mg PO BID 01/01/16 [History] Levothyroxine Sodium [Synthroid] 112 mcg PO DAILY 01/01/16 [History] Lisinopril-Hctz 20-25 mg [Zestoretic 20-25] 1 tab PO DAILY 01/01/16 [History] Multivitamins, Thera [Multivitamin] 1 tab PO DAILY 01/01/16 [History] Calcium Carbonate [Calcium] 1,000 mg PO BID 05/01/16 [History] Cyanocobalamin [Vitamin B-12] 1,000 mcg PO DAILY 05/01/16 [History] Desvenlafaxine Succinate [Pristiq] 100 mg PO DAILY 03/23/19 [History] Hydroxychloroquine Sulfate [Plaquenil] 200 mg PO BID 05/05/19 [History] Pilocarpine [Salagen] 5 mg PO TID 05/05/19 [History] Acetaminophen [Tylenol Arthritis] 1,300 mg PO DAILY PRN 06/23/19 [History] Acetaminophen/Diphenhydramine [Tylenol PM 500-25mg] 2 tab PO HS PRN 06/23/19 [History] Naproxen Sodium [Aleve] 220 mg PO DAILY PRN 06/23/19 [History] Propylene Glycol [Systane Complete] 1 drop BOTH EYES BID 06/23/19 [History] Acetaminophen Tab [Tylenol Tab] 500 mg PO Q6H PRN #30 tablet 07/04/19 [Rx] Ibuprofen [Motrin] 600 mg PO Q8HR PRN #20 tab 07/04/19 [Rx] Nystatin 100,000 Unit/ml Susp [Mycostatin Oral Susp] 1 tsp PO DAILY 07/04/19 [History] Omeprazole 40 mg PO DAILY #30 capsule. 07/04/19 [Rx] Fluconazole [Diflucan] 100 mg PO DAILY #14 tablet 07/06/19 [Rx] Follow up Appointment(s)/Referral(s): [facility] [[facility]] - 07/06/19 (FOLLOW UP WITH DR LIMA ON JULY 06 3:30-3:45PM) Patient Instructions/Handouts: *Surgery [facility] - (Anesthesia) Discharge Instructions Outpatient Surgery, Gastritis (DC), Lysis of Abdominal Adhesions (DC), Abdominal Binder (DC) Activity/Diet/Wound Care/Special Instructions: No lifting over 10 pounds for 10 days, until July 14. May shower. No bathtub soaks. Wear dressing until July 08 removal on Thursday. Discharge Disposition: HOME SELF-CARE
[2019-07-04 09:29] VITALS: TEMP 98.5
--- NOTE | 2019-07-04 09:33 | P.HPADDEND ---
H&P Addendum H&P Addendum Date: 07/04/19 Will proceed with robotic-assisted removal of adjustable gastric band including intraoperative EGD. Benefits and risks procedure described. Patient also reports non-tobacco use lifelong. SOCIAL HISTORY: Lifelong NON-tobacco user. No reports of recent alcohol use.
[2019-07-04] MEDS: HYDROmorphone 0.5 MG/0.5 ML SYRINGE IVP PRN ×4 (09:37→10:16)
[2019-07-04 11:33] VITALS: BP 107/74; PULSE 93; RESP 20
[2019-07-04] MEDS ORDERED: TAMSULOSIN 0.4 MG CAP.ER.24H PO ONE (12:05)
== END 2019-07-04 12:20 | disposition home or self-care (01) ==
LOC: OR 06:13
PROVIDERS: ATTEND Surgery Plastic and Reconstructive Surgery
DX: T85.898A Other specified complication of other internal prosthetic devices, implants and grafts, initial encounter (principal); K29.50 Unspecified chronic gastritis without bleeding; B96.81 Helicobacter pylori [H. pylori] as the cause of diseases classified elsewhere; K21.0 Gastro-esophageal reflux disease with esophagitis; K66.0 Peritoneal adhesions (postprocedural) (postinfection); E66.01 Morbid (severe) obesity due to excess calories; Z68.30 Body mass index [BMI] 30.0-30.9, adult; G25.2 Other specified forms of tremor; I10 Essential (primary) hypertension; E03.9 Hypothyroidism, unspecified; F32.9 Major depressive disorder, single episode, unspecified; E53.8 Deficiency of other specified B group vitamins; E55.9 Vitamin D deficiency, unspecified; F41.9 Anxiety disorder, unspecified; M79.7 Fibromyalgia; F41.0 Panic disorder [episodic paroxysmal anxiety]; G89.29 Other chronic pain; M19.90 Unspecified osteoarthritis, unspecified site; M54.5 Low back pain; M54.2 Cervicalgia; M32.9 Systemic lupus erythematosus, unspecified; R32 Unspecified urinary incontinence; R15.9 Full incontinence of feces; Z79.890 Hormone replacement therapy; Z79.52 Long term (current) use of systemic steroids; Z79.899 Other long term (current) drug therapy; Z79.1 Long term (current) use of non-steroidal anti-inflammatories (NSAID); Z88.5 Allergy status to narcotic agent
CPT/HCPCS: 88305; 88342; 43774; 43239; J2250; J1100; J2710; J0690; J2405; J2001; J1650; J3010; J1885; J2370; J0330; J2704; C9113; J1170

== ENCOUNTER → 2019-07-06 | Outpatient (CLI) | payer MEDICARE ==
[2019-07-06 16:07] VITALS: BP 103/72; PULSE 73; TEMP 98.2; BMI 31.5
--- NOTE | 2019-07-06 16:29 | P.PN ---
Subjective Progress Note Date: 07/06/19 DATE OF CONSULTATION: 07/06/2019 CHIEF COMPLAINT: Morbid obesity. HISTORY OF PRESENT ILLNESS: Yesi Gastelum is 63-year-old female who comes in with an adjustable gastric band from 2001. She is status post band removal 07/04/2019. She is POD 2. She had thrush prior to surgery. She was taking Nystatin solution. At her height of 5 foot 5.5 inches, her ideal body weight is 149 pounds. Her highest weight was 245 pounds. Her body mass index was 40.9. Today she comes in weighing 191 pounds from 185 pounds, 2 months ago. She has gained 5 pounds in 2 months. Lifetime weight loss of 54 pounds. Percent excess weight loss of 57% lifetime. BMI down to 31.5. PHYSICAL EXAM: VITAL SIGNS: 5 foot 5.5 inches, 191 pounds. Body mass index 31.3 Vital Signs Temp 98.2 F 07/06/19 16:04 Pulse 73 07/06/19 16:04 Resp BP 103/72 07/06/19 16:04 Pulse Ox GENERAL: Well-developed female in no acute distress. HEENT: No scleral icterus. Extraocular muscles grossly intact. Moist buccal mucosa. NECK: Supple without lymphadenopathy. CHEST: Nonlabored respirations with equal bilateral excursions. CARDIOVASCULAR: Regular rate and rhythm. ABDOMEN: Obese, soft. Dressing removed. No infection. Abdominal binder re- positioned MUSCULOSKELETAL: No clubbing, cyanosis, or edema. NEURO: No focal or lateralizing signs.Cranial nerves II through XII grossly within normal limits. PSYCH: Flat affect. Alert and oriented to person, place and time. SKIN: Well perfused. Good skin turgor. ASSESSMENT: 1. Morbid obesity due to excess caloric intake. 2. Body mass index reduced from 40.8 down to 30.0. 3. History of adjustable gastric band. 4. Fibromyalgia and myalgias following placement of adjustable gastric band. 5. Encounter for adjustment of gastric band. 6. History of intentional tremors. 7. Hypothyroidism. 8. History of secondary hyperparathyroidism secondary to inadequate intake. 9. History of panic disorder. 10. History of depression. 11. Lupus 12. Gastroesophageal reflux disease, resolved 13. Status post gastric band removal 14. Thrush, present prior to surgery PLAN: 1. She has physical therapy which may be resumed Sep 9th. 2. New prescription of diflucan for history of thrush. 3. Continue to wear binder. 4. Recommend follow up in 2 weeks, Jul 27 for follow up Objective - Vital Signs Vital signs: Vital Signs Temp 98.2 F 07/06/19 16:04 Pulse 73 07/06/19 16:04 Resp BP 103/72 07/06/19 16:04 Pulse Ox Intake & Output 07/05/19 07/06/19 07/06/19 18:59 06:59 18:59 Weight 86.636 kg
== END | disposition home or self-care (01) ==
LOC: BARWHC3 15:28
PROVIDERS: ATTEND Surgery Plastic and Reconstructive Surgery
DX: E66.01 Morbid (severe) obesity due to excess calories (principal); M79.7 Fibromyalgia; E03.9 Hypothyroidism, unspecified; M32.9 Systemic lupus erythematosus, unspecified; B37.0 Candidal stomatitis; E21.1 Secondary hyperparathyroidism, not elsewhere classified; Z68.30 Body mass index [BMI] 30.0-30.9, adult; Z98.84 Bariatric surgery status; Z46.51 Encounter for fitting and adjustment of gastric lap band; Z86.69 Personal history of other diseases of the nervous system and sense organs; Z86.59 Personal history of other mental and behavioral disorders
CPT/HCPCS: 99211

== ENCOUNTER → 2019-07-27 | Outpatient (CLI) | payer MEDICARE ==
[2019-07-27 15:05] VITALS: BP 140/80; PULSE 88; RESP 16; TEMP 98.7; BMI 31.3
--- NOTE | 2019-07-27 15:41 | P.PN ---
Subjective Progress Note Date: 07/27/19 DATE OF SERVICE: 07/27/2019 CHIEF COMPLAINT: Morbid obesity. HISTORY OF PRESENT ILLNESS: Yesi Gastelum is 63-year-old female who comes in with new oral pain. She reports trouble with dry eyes and dry mouth. She reports feeling better since her band has removed. She reports new diagnosis of Sjogren's disease. She reports abdominal pain. At her height of 5 foot 5.5 inches, her ideal body weight is 149 pounds. Her highest weight was 245 pounds. Her body mass index was 40.9. Today she comes in weighing 191 pounds. Her weight has been unchanged in 2 weeks. Lifetime weight loss of 54 pounds. Percent excess weight loss of 57% lifetime. BMI down to 31.5. PHYSICAL EXAM: VITAL SIGNS: 5 foot 5.5 inches, 191 pounds. Body mass index 31.3 Vital Signs Temp 98.7 F 07/27/19 15:02 Pulse 88 07/27/19 15:02 Resp 16 07/27/19 15:02 BP 140/80 07/27/19 15:02 Pulse Ox GENERAL: Well-developed female in no acute distress. HEENT: No scleral icterus. Extraocular muscles grossly intact. Moist buccal mucosa. NECK: Supple without lymphadenopathy. CHEST: Nonlabored respirations with equal bilateral excursions. CARDIOVASCULAR: Regular rate and rhythm. ABDOMEN: No hernia. No seroma. No infection. Mild puckering at left upper quadrant incision. MUSCULOSKELETAL: No clubbing, cyanosis, or edema. NEURO: No focal or lateralizing signs.Cranial nerves II through XII grossly within normal limits. PSYCH: Flat affect. Alert and oriented to person, place and time. SKIN: Well perfused. Good skin turgor. Final Pathologic Diagnosis GASTRIC ANTRUM, BIOPSY: Chronic active gastritis. Helicobacter pylori immunostain is positive for H. pylori organisms (controls appropriate). ASSESSMENT: 1. H. pylori gastritis, new 2. Morbid obesity due to excess caloric intake. 3. Body mass index reduced from 40.8 down to 31.3. 4. Status post gastric band removal 5. Oral pain PLAN: 1. Recommend seeing dentist for oral pain. 2. Treatment for H. pylori with clarithromycin, amoxicillin and omeprazole for 2 weeks prescribed Objective - Vital Signs Vital signs: Vital Signs Temp 98.7 F 07/27/19 15:02 Pulse 88 07/27/19 15:02 Resp 16 07/27/19 15:02 BP 140/80 07/27/19 15:02 Pulse Ox Intake & Output 07/26/19 07/27/19 07/27/19 18:59 06:59 18:59 Weight 86.636 kg
== END | disposition home or self-care (01) ==
LOC: BARWHC3 14:41
PROVIDERS: ATTEND Surgery Plastic and Reconstructive Surgery
DX: E66.01 Morbid (severe) obesity due to excess calories (principal); K29.50 Unspecified chronic gastritis without bleeding; B96.81 Helicobacter pylori [H. pylori] as the cause of diseases classified elsewhere; Z68.31 Body mass index [BMI] 31.0-31.9, adult; M35.00 Sjogren syndrome, unspecified
CPT/HCPCS: 99211

== ENCOUNTER → 2019-08-24 | Outpatient (CLI) | payer MEDICARE ==
[2019-08-24 13:20] VITALS: BP 121/83; PULSE 90; RESP 16; TEMP 98.4; BMI 32.1
--- NOTE | 2019-08-24 14:25 | P.PN ---
Subjective Progress Note Date: 08/24/19 DATE OF SERVICE: 08/24/2019 CHIEF COMPLAINT: Morbid obesity. HISTORY OF PRESENT ILLNESS: Yesi Gastelum is 63-year-old female who comes in with new diagnosis of Sjogren's disease. She also came in with gastritis. Her burning of the abdomen is resolved after treatment for H pylori gastritis. She is upset for more weight gain. She is eating more. She is eating pasta and ice cream. She reports pain in her mouth. She has not seen the dentist or ENT. She has persistent mouth pain. At her height of 5 foot 5.5 inches, her ideal body weight is 149 pounds. Her highest weight was 245 pounds. Her body mass index was 40.9. Today she comes in weighing 195 pounds from 191 pounds, 1 month ago. She has gained 5 pounds in 1 month. Lifetime weight loss of 49 pounds. Percent excess weight loss of 51 % lifetime. BMI down to 32.1. PHYSICAL EXAM: VITAL SIGNS: 5 foot 5.5 inches, 196 pounds. Body mass index 32.1 Vital Signs Temp 98.4 F 08/24/19 13:18 Pulse 90 08/24/19 13:18 Resp 16 08/24/19 13:18 BP 121/83 08/24/19 13:18 Pulse Ox GENERAL: Well-developed female in no acute distress. HEENT: No scleral icterus. Extraocular muscles grossly intact. Moist buccal mucosa. NECK: Supple without lymphadenopathy. CHEST: Nonlabored respirations with equal bilateral excursions. CARDIOVASCULAR: Regular rate and rhythm. ABDOMEN: No hernia. No seroma. No further puckering along the left upper quadrant. MUSCULOSKELETAL: No clubbing, cyanosis, or edema. NEURO: No focal or lateralizing signs.Cranial nerves II through XII grossly within normal limits. PSYCH: Flat affect. Alert and oriented to person, place and time. SKIN: Well perfused. Good skin turgor. ASSESSMENT: 1. H. pylori gastritis, new 2. Morbid obesity due to excess caloric intake. 3. Body mass index reduced from 40.8 down to 32.1 4. Status post gastric band removal PLAN: 1. Follow up as needed. 2. Recommend follow up with ENT and dentist. Objective - Vital Signs Vital signs: Vital Signs Temp 98.4 F 08/24/19 13:18 Pulse 90 08/24/19 13:18 Resp 16 08/24/19 13:18 BP 121/83 08/24/19 13:18 Pulse Ox Intake & Output 08/23/19 08/24/19 08/24/19 18:59 06:59 18:59 Weight 88.904 kg
== END | disposition home or self-care (01) ==
LOC: BARWHC3 12:43
PROVIDERS: ATTEND Surgery Plastic and Reconstructive Surgery
DX: E66.01 Morbid (severe) obesity due to excess calories (principal); Z68.32 Body mass index [BMI] 32.0-32.9, adult; B96.81 Helicobacter pylori [H. pylori] as the cause of diseases classified elsewhere; K29.70 Gastritis, unspecified, without bleeding; M35.00 Sjogren syndrome, unspecified; Z46.51 Encounter for fitting and adjustment of gastric lap band
CPT/HCPCS: 99211

== ENCOUNTER → 2019-12-01 | Outpatient (CLI) | payer MEDICARE ==
[2019-12-01 15:49] LABS: ALT 67 U/L (4-34); AST 48 U/L (14-36); African American GFR (CKD) >90 (>60 ml/min/1.73 sqM); Albumin 4.5 g/dL (3.5-5.0); Alkaline Phosphatase 98 U/L (38-126); Anion Gap 9 mmol/L; Blood Urea Nitrogen 27 mg/dL (7-17); Carbon Dioxide 24 mmol/L (22-30); Chloride 105 mmol/L (98-107); Glucose 130 mg/dL (74-99); Non-African American GFR(CKD) >90 (>60 ml/min/1.73 sqM); Potassium 4.2 mmol/L (3.5-5.1); Sodium 138 mmol/L (137-145); Total Bilirubin 0.3 mg/dL (0.2-1.3); Total Protein 7.6 g/dL (6.3-8.2)
[2019-12-01 15:56] LABS: INR 0.9 (<1.2); Partial Thromboplastin Time 25.7 sec (22.0-30.0); Prothrombin Time 9.9 sec (9.0-12.0)
[2019-12-01 15:59] LABS: Basophils % (A) 0 %; Eosinophils % (A) 0 %; HCT 42.1 % (34.0-46.0); HGB 14.5 gm/dL (11.4-16.0); Lymphocytes % (A) 10 %; MCH 34.2 pg (25.0-35.0); MCHC 34.5 g/dL (31.0-37.0); MCV 99.2 fL (80.0-100.0); Mean Platelet Volume 7.1; Monocytes # (A) 0.4 k/uL (0-1.0); Monocytes % (A) 4 %; Neutrophils # (A) 7.7 k/uL (1.3-7.7); Neutrophils % (A) 84 %; Platelet Count 303 k/uL (150-450); RBC 4.25 m/uL (3.80-5.40); RDW 13.7 % (11.5-15.5); WBC 9.2 k/uL (3.8-10.6)
[2019-12-01 16:04] LABS: Appearance,Urine Clear (Clear); Bacteria,Urine Rare /hpf; Bilirubin,Urine Negative (Negative); Blood,Urine Negative (Negative); Color,Urine Yellow; Glucose,Urine (UA) Negative (Negative); Hyaline Casts,Urine 1 /lpf (0-2); Ketones,Urine Negative (Negative); Leukocyte Esterase,Urine Small (Negative); Mucus,Urine Rare /hpf; Nitrite,Urine Negative (Negative); PH, Urine 5.5 (5.0-8.0); Protein,Urine Negative (Negative); RBC,Urine 1 /hpf (0-5); Specific Gravity,Urine 1.025 (1.001-1.035); Squamous Epithelial Cell,Urine 4 /hpf (0-4); Urobilinogen,Urine <2.0 mg/dL (<2.0); WBC,Urine 18 /hpf (0-5)
[2019-12-02 04:19] LABS: C Reactive Protein 7.5 mg/L (<10.0)
== END | disposition home or self-care (01) ==
LOC: LABPAT 15:05
PROVIDERS: ATTEND Orthopaedic Surgery
DX: Z01.812 Encounter for preprocedural laboratory examination (principal); M16.11 Unilateral primary osteoarthritis, right hip; Z51.81 Encounter for therapeutic drug level monitoring
CPT/HCPCS: 80053; 81001; 85025; 85610; 85730; 86140; 87070

== ENCOUNTER → 2019-12-05 | Outpatient (CLI) | payer MEDICARE ==
[~2019-12-05] MED LIST changes: -DEXAMETHASONE SOD PHOSPHATE 10 MG/ML 1 ML VIAL IV ONE; -KETOROLAC 30 MG/ML 1 ML VIAL IVP SCH; -LACTATED RINGERS 1,000 ML IV SCH; -LIDOCAINE 1% 20 ML VIAL (10MG/ML) FOR IV START INTRADERMA PRN; -ONDANSETRON 4 MG/2 ML VIAL IVP PRN; +REGADENOSON 0.4 MG/5 ML SYRINGE IV ONE; -SCOPOLAMINE 1.5MG/72HR PATCH TRANSDERM ONE
--- NOTE | 2019-12-05 13:22 | NM ---
EXAMINATION TYPE: NM stress lexiscan cardiolite DATE OF EXAM: 12/05/2019 COMPARISON: NONE HISTORY: Abnormal EKG TECHNIQUE: After the intravenous administration of 10.3 mCi Tc 99m Sestamibi - Cardiolite resting SP ECT images acquired 50 minutes post injection. The patient received 0.4mg Lexiscan, 26 mCi Tc 99m Sestamibi - Stress images obtained 30 minutes post injection FINDINGS: Review of stress and rest SPECT images demonstrates decreased uptake along the anterior lateral left ventricle on stress as compared to rest images extending apically. Gated analysis shows questionable paradoxical apical wall motion with an estimated left ventricular ejection fraction of 61 %. IMPRESSION: Pharmacologically induced left ventricular myocardial ischemia. Results relayed to the office of Dr. Seals telephonically at the time of interpretation at exam.
--- NOTE | 2019-12-05 14:20 | EST ---
EXERCISE STRESS AGE: 64 SEX: F HT: 65" WT: 195 PROTOCOL: Lexiscan Cardiolite Stress Test HEART RATE REST: 68 BLOOD PRESSURE REST: 109/68 MAXIMUM HEART RATE ACHIEVED: 96 MAXIMUM BLOOD PRESSURE: 107/57 85% MPHR: 133 100% MPHR: 156 INDICATIONS: Pre-operative. CLINICAL INFORMATION: Lexiscan nuclear study was performed. Patient was given Lexiscan injection over a period of 10 seconds. Peak heart rate of 96 was achieved. Maximum blood pressure of 107/57 mmHg was noted. Resting EKG shows normal sinus rhythm with normal NH interval and QRS duration and normal ST-T waves. No ST-segment depression suggestive of ischemia is noted. The results of the nuclear study will follow. MMODL / IJN: [id number] /
== END | disposition home or self-care (01) ==
LOC: RADNMMAIN 08:50
PROVIDERS: ATTEND Family Medicine
DX: I25.9 Chronic ischemic heart disease, unspecified (principal)
CPT/HCPCS: 93017; 78452; A9500; J2785

== ENCOUNTER 2019-12-07 10:43 | Day surgery (SDC) | payer MEDICARE ==
[2019-12-06 11:53] VITALS: BMI 32.4
[~2019-12-07 10:43] MED LIST changes: +ALPRAZolam 0.25 MG TAB PO PRN; +ALPRAZolam 0.5 MG TAB PO PRN; +ASPIRIN 325 MG TAB PO STA; +ATORVASTATIN 80 MG TAB PO STA; +NITROGLYCERIN SL TABS 0.4 MG TAB SUBLINGUAL PRN; -REGADENOSON 0.4 MG/5 ML SYRINGE IV ONE; +SODIUM CHLORIDE 0.9% 1,000 ML in EMPTY BAG 1 BAG IV ONE
[2019-12-07] MEDS ORDERED: SODIUM CHLORIDE 0.9% 1,000 ML IV ONE (11:15)
[2019-12-07] MEDS ORDERED: fentaNYL (PF) 50 MCG/ML 2 ML AMP ONE (11:38)
[2019-12-07] MEDS ORDERED: LIDOCAINE 1% INJ 10MG/ML (20 ML MDV) ONE (11:38)
[2019-12-07 11:41] VITALS: RESP 16; TEMP 98.3
[2019-12-07] MEDS: MIDAZOLAM 2 MG/2 ML VIAL IVP ONE ×2 (11:55→11:58)
[2019-12-07] MEDS ORDERED: fentaNYL (PF) 50 MCG/ML 2 ML AMP IV ONE (11:55)
[2019-12-07] MEDS ORDERED: LIDOCAINE 1% INJ 10MG/ML (20 ML MDV) SQ ONE (11:58)
[2019-12-07] MEDS ORDERED: IOPAMIDOL-370 125ML BTL INJ ONE (12:08)
[2019-12-07] MEDS ORDERED: RX INFO: IV CONTRAST WAS GIVEN 1 EACH MISC MISCELLANE PRN (12:22)
[2019-12-07] MEDS ORDERED: SODIUM CHLORIDE 0.9% 1,000 ML IV SCH (12:30)
--- NOTE | 2019-12-07 12:35 | CC ---
CARDIAC CATHETERIZATION REPORT INDICATION: Abnormal stress test in a patient who is to undergo right hip replacement surgery. PROCEDURE NOTE: After obtaining informed consent, left heart catheterization and coronary angiogram were performed via the right femoral artery using standard Chiquita catheters. Patient tolerated the procedure well without any obvious immediate complications. A femoral angiogram was performed and Angio-Seal will be deployed for hemostasis. Patient received moderate conscious sedation. Total sedation time was 17 minutes. FINDINGS: HEMODYNAMICS: Left ventricular end-diastolic pressure is 18 mm. There is no significant gradient across the aortic valve. LEFT VENTRICULOGRAM: Left ventriculogram is not performed. ANGIOGRAPHIC DATA: LEFT MAIN CORONARY ARTERY: Left main coronary artery is a normal-sized vessel and is free of stenosis. Divides into left anterior descending coronary artery and circumflex coronary artery. Circumflex coronary artery and its branches are free of significant stenosis. LAD shows a mild to moderate atherosclerotic plaque in the proximal part which at its worse seems to be 30%-40% stenosed. Right coronary artery is a large dominant vessel and is free of significant disease. CONCLUSION: A 40% stenosis involving proximal left anterior descending artery. PLAN: I reviewed angiographic data with the patient and told her stress test is a false positive stress test, that we will check her lipid profile and start her on statin therapy. I advised her to take an aspirin daily. She can proceed with her right hip replacement surgery at this time. MMODL / IJN: [id number] /
--- NOTE | 2019-12-07 12:40 | LTR ---
DATE OF SERVICE: 12/07/2019 RE: AMARA Gastelum Dear Dr. Seals; I performed cardiac catheterization on Amara Gastelum. The detailed catheterization noted is enclosed for your records. As you remember, this lady is to undergo right hip replacement and underwent a stress test that was abnormal due to which she underwent cardiac catheterization. Her cardiac catheterization did not reveal significant stenosis and she can proceed with hip replacement surgery as originally scheduled. Thank you for allowing us to participate in the care of this pleasant lady. Sincerely, MD BRENDAN Yun / TREVOR: [id number] /
[2019-12-07] MEDS ORDERED: ACETAMINOPHEN TAB 325 MG TAB PO PRN (15:33)
[2019-12-07 16:32] LABS: ALT 31 U/L (4-34); AST 28 U/L (14-36); Cholesterol 242 mg/dL (<200); HDL Cholesterol 59 mg/dL (40-60); LDL Cholesterol,Calculated 139 mg/dL (0-99); Triglycerides 222 mg/dL (<150)
[2019-12-07 19:36] VITALS: BP 139/71; PULSE 80
== END 2019-12-07 17:44 | disposition home or self-care (01) ==
LOC: CATHCVL 10:43
PROVIDERS: ATTEND Internal Medicine Cardiovascular Disease
DX: I25.10 Atherosclerotic heart disease of native coronary artery without angina pectoris (principal); E78.00 Pure hypercholesterolemia, unspecified; I10 Essential (primary) hypertension; F41.9 Anxiety disorder, unspecified; M19.90 Unspecified osteoarthritis, unspecified site; F32.9 Major depressive disorder, single episode, unspecified; R01.1 Cardiac murmur, unspecified; R60.0 Localized edema; Z98.84 Bariatric surgery status; Z79.890 Hormone replacement therapy; Z79.899 Other long term (current) drug therapy; Z88.5 Allergy status to narcotic agent; Z88.6 Allergy status to analgesic agent; Z82.49 Family history of ischemic heart disease and other diseases of the circulatory system; Z82.5 Family history of asthma and other chronic lower respiratory diseases
CPT/HCPCS: 93458; 80061; 84450; 84460; C1769 ×2; C1760; C1894; J2250; J2001; J3010; Q9967

== ENCOUNTER 2019-12-12 10:44 | Inpatient (IN) | payer MEDICARE ==
[2019-12-05 10:07] VITALS: BMI 32.4
[~2019-12-12 10:44] MED LIST changes: +ACETAMINOPHEN TAB 325 MG TAB ONE; +ACETAMINOPHEN TAB 500 MG TAB PO ONE; -ALPRAZolam 0.25 MG TAB PO PRN; -ALPRAZolam 0.5 MG TAB PO PRN; -ASPIRIN 325 MG TAB PO STA; -ATORVASTATIN 80 MG TAB PO STA; +DIAZEPAM 5 MG TAB PO PRN; +GABAPENTIN 300 MG CAP PO ONE; +HYDROmorphone 0.5 MG/0.5 ML SYRINGE IVP PRN; +HYDROmorphone 1 MG/ML 1 ML SYRINGE IVP PRN; +LIDOCAINE 1% 20 ML VIAL (10MG/ML) FOR IV START INTRADERMA PRN; +MAGNESIUM HYDROXIDE 2,400 MG/10 ML CUP PO PRN; +MELOXICAM 7.5 MG TAB PO ONE; +NALOXONE 0.4 MG/ML 1 ML VIAL IV PRN; -NITROGLYCERIN SL TABS 0.4 MG TAB SUBLINGUAL PRN; +ONDANSETRON 4 MG/2 ML VIAL IVP ONE; +ONDANSETRON 4 MG/2 ML VIAL IVP PRN; +ROPIVACAINE 246.25 MG, EPINEPHrine 0.5 MG, KETOROLAC 30 MG, cloNIDine HCL/PF 80 MCG, WA... MISCELLANE ONE; -SODIUM CHLORIDE 0.9% 1,000 ML in EMPTY BAG 1 BAG IV ONE; +TRANEXAMIC ACID 1,000 MG in SODIUM CHLORIDE 0.9% 100 ML IVPB ONE; +fentaNYL (PF) 50 MCG/ML 2 ML AMP IV PRN
[2019-12-12] MEDS: LACTATED RINGERS 1,000 ML IV SCH (11:36)
[2019-12-12] MEDS ORDERED: WATER FOR INJECTION, STERILE 10 ML VIAL IV ONE (12:20)
[2019-12-12] MEDS ORDERED: SODIUM CHLORIDE 0.9% IRRIG 1,000 ML BTL IRRIGATION ONE (12:20)
[2019-12-12] MEDS ORDERED: ePHEDrine SULFATE/0.9% NACL/PF 50 MG/5 ML SYRINGE IV ONE (12:20)
[2019-12-12] MEDS ORDERED: MIDAZOLAM 2 MG/2 ML VIAL ONE (12:20)
[2019-12-12] MEDS ORDERED: fentaNYL (PF) 50 MCG/ML 2 ML AMP ONE (12:20)
[2019-12-12] MEDS ORDERED: HEPARIN SODIUM,PORCINE 10,000 UNIT/ML 1 ML VIAL ONE (12:20)
[2019-12-12] MEDS ORDERED: PHENYLEPHRINE-0.9% NACL SYG 1 MG/10 ML SYRINGE ONE (12:20)
[2019-12-12] MEDS ORDERED: PROPOFOL 10 MG/ML 20 ML VIAL IV ONE (12:20)
[2019-12-12] MEDS ORDERED: SODIUM CHLORIDE 0.9% 100 ML BAG ONE (12:20)
[2019-12-12] MEDS ORDERED: TRANEXAMIC ACID 1,000 MG/10 ML VIAL ONE (12:20)
[2019-12-12] MEDS ORDERED: ceFAZolin 3,000 MG in SODIUM CHLORIDE 0.9% IRRIGATIO 3,000 ML IRRIGATION ONE (12:26)
--- NOTE | 2019-12-12 14:08 | P.OP ---
Date of Procedure: 12/12/19 Preoperative Diagnosis: Severe osteoarthritis right hip Postoperative Diagnosis: Severe osteoarthritis right hip Procedure(s) Performed: Right total hip arthroplasty with a direct anterior approach Implants: Ho and nephew Polarstem size 4 standard Ho & Nephew R3, 3 hole acetabular shell, 52 mm Ho & Nephew reflection 6.5 mm cancellus screw, 20 mm 2 Ho & Nephew R3, XLPE 20 acetabular liner Ho & Nephew Oxinium femoral head 36 m, -3 All components were press-fit. The articulation is Oxinium on polyethylene. Anesthesia: spinal Surgeon: Deep Ponce Lift Manager #1: Joi Cartwright Estimated Blood Loss (ml): 200 (100 mL returned with Cell Saver) Pathology: other (Femoral head) Condition: stable Disposition: PACU Indications for Procedure: After failure of conservative treatment we discussed the surgical and nonsurgical treatment options at length. Patient wishes to proceed with a total hip arthroplasty with a direct anterior approach. Complications specific to this procedure were discussed at length, including but not limited to infection, leg length discrepancy, dislocation, and nerve injury. Patient is aware of all these complications and informed consent was obtained Operative Findings: The operative findings are consistent with severe osteoarthritis of the right hip Description of Procedure: Patient was seen and evaluated in the preoperative area, consent was reviewed, and the surgical site was marked with a skin marker. Patient was then brought to the operating room and given prophylactic antibiotics intravenously. 1 g of Tranexamic acid was also given. A spinal anesthetic was administered by the anesthesia department. The patient was then placed on the Henderson table with the bony prominences well-padded. The hip area was then prepped and draped in usual sterile fashion. A universal timeout was then performed, which confirmed the patient's name, surgical site, ALLERGIES, and procedure being performed. Next the incision site was located at 1 cm distal and 1 cm lateral to the anterior superior iliac spine. The skin and subcutaneous tissues were sharply incised. Incision was carefully dissected down to the fascia overlying the tensor fascia radha muscle. This fascia was then incised in line with the incision. Next, using blunt finger dissection, the tensor fascia radha muscle was dissected off its investing fascia. The muscle was then carefully retracted laterally with a cobra retractor over the lateral neck of the femur. Next, the circumflex vessels were identified and cauterized using the AquaMantis device. The anterior hip capsule was then exposed. The capsule was then opened and an inverted T fashion. Cobra retractors were then placed intracapsularly. The proximal femur was then visualized. The femoral neck was then osteotomized appropriate level above the lesser trochanter. Small amount of traction was placed with the Henderson table. A small wedge of bone was then removed from the remaining femoral head. Next, using a corkscrew femoral head was easily removed from the acetabulum. On gross visual inspection, the femoral head had complete loss of articular cartilage in m ultiple periarticular osteophytes. Attention was then turned to the acetabulum. the acetabulum was exposed and any remaining labrum was excised. Sequential reaming of the acetabulum was performed using fluoroscopic guidance. When the appropriate size was reached, a trial was then placed. The position and fit of the trial was checked with fluoroscopy. The trial was then removed. Then, using fluoroscopic guidance, the final implant was impacted at 20 of anteversion and 40 of abduction, and fully seated in the acetabulum. 2 screws were then placed in the acetabulum. Again fluoroscopy was used to check position of the screws. Next, the liner was then impacted, with a 20 elevated liner located in the anterior superior quadrant. Component locking was confirmed. Attention was then directed to the femur. With the aid of the Henderson table, the femur was externally rotated to approximately 130, extended, and abducted under the opposite leg. A side hook was then placed under the proximal femur, and the side hook elevator was used to elevate the proximal femur. Retractors were then placed. A capsular release was performed, as well as a release of the conjoined tendon, which afforded excellent visualization of the proximal femur. Next, a box osteotome was used to lateralize the proximal femur. A guitar maker hand was then used to locate the femoral canal. Sequential broaching was then performed with appropriate size which afforded excellent fixation in the proximal femur. A trial was then placed with appropriate head and neck, and the hip was gently reduced with the aid of the Henderson table. Fluoroscopy was then used to check position of the components, as well as to ensure equal leg lengths. The hip was then gently dislocated and the trials were then removed. Final implants were then impacted and the hip was again reduced. Final fluoroscopic x-rays confirmed that the components were in anatomic position, as well as equal leg lengths. The hip was also taken through range of motion, and found to be stable. The hip was then copiously irrigated with antibiotic solution with pulsatile lavage. The hip was then irrigated with Irrisept solution. The soft tissues were then injected with a ropivacaine solution, which consisted of 246.25 mg of ropivacaine, 0.5 mg of epinephrine, 30 mg of Toradol, 80 g of clonidine, and 48.45 mL of sterile water, for a total of 100 mL of fluid injected. A second dose of 1 g of Tranexamic acid was also given. the fascia was then closed with 2-0 strata fix suture. The subcutaneous tissue was closed with 3-0 Vicryl. The subcuticular tissue was closed with 3-0 strata fix suture. The skin was then closed with Dermabond glue and a sterile silver dressing. The patient was then transferred to the recovery room in stable c ondition. The botany laboratory assistant OZ Barker was required due to the complexity of surgery, and the need for skilled surgical lead for positioning, draping, exposure, retraction, and closure of the wound.
[2019-12-12] MEDS ORDERED: KETOROLAC 30 MG/ML 1 ML VIAL IVP ONE (14:35)
--- NOTE | 2019-12-12 14:48 | XR ---
Right hip HISTORY: Status post right hip arthroplasty Single frontal view of the right hip Patient is status post right hip arthroplasty. There is anatomic alignment. Lucency in the soft tissu es is postoperative. IMPRESSION: Orthopedic follow-up.
--- NOTE | 2019-12-12 16:37 | FL ---
Fluoroscopy HISTORY: Hip replacement 38 seconds fluoroscopy time supplied to the referring clinician. 2 intraoperative C-arm images docum ent the procedure. See dictated report from orthopedic surgery..
--- NOTE | 2019-12-12 16:38 | XR ---
Limited right hip HISTORY: Hip replacement 2 intraoperative C-arm images document the procedure
[2019-12-12] MEDS: hydrOXYzine PAMOATE 25 MG CAP PO PRN (17:18)
[2019-12-12] MEDS: SODIUM CHLORIDE 0.9% 1,000 ML IV SCH (18:30)
[2019-12-12] MEDS ORDERED: LACTATED RINGERS 1,000 ML IV PRN (20:02)
[2019-12-12] MEDS: ASPIRIN 325 MG TAB PO SCH (21:42)
[2019-12-12] MEDS: ALPRAZolam 1 MG TAB PO SCH (21:42)
[2019-12-12] MEDS: ARTIFICIAL TEARS-HYPROMELLOSE DROPS 15 ML BTL BOTH EYES SCH (21:42)
[2019-12-12] MEDS: SENNOSIDES-DOCUSATE SODIUM 1 EACH TAB PO SCH (22:16)
[2019-12-13] MEDS: SODIUM CHLORIDE 0.9% 1,000 ML IV SCH ×3 (02:12→20:00)
[2019-12-13] MEDS: hydrOXYzine PAMOATE 25 MG CAP PO PRN (03:05)
[2019-12-13] MEDS: traMADol 50 MG TAB PO PRN ×4 (03:05→22:36)
[2019-12-13] MEDS: LACTATED RINGERS 1,000 ML IV SCH ×2 (05:02→20:00)
[2019-12-13 07:34] LABS: Basophils % (A) 0 %; Eosinophils % (A) 0 %; HCT 34.4 % (34.0-46.0); HGB 11.6 gm/dL (11.4-16.0); Lymphocytes # (A) 1.2 k/uL (1.0-4.8); Lymphocytes % (A) 12 %; MCH 34.5 pg (25.0-35.0); MCHC 33.8 g/dL (31.0-37.0); MCV 102.2 fL (80.0-100.0); Macrocytosis Slight; Mean Platelet Volume 6.8; Monocytes # (A) 0.5 k/uL (0-1.0); Monocytes % (A) 5 %; Neutrophils # (A) 7.5 k/uL (1.3-7.7); Neutrophils % (A) 80 %; Platelet Count 288 k/uL (150-450); RBC 3.36 m/uL (3.80-5.40); RDW 13.7 % (11.5-15.5); WBC 9.3 k/uL (3.8-10.6)
--- NOTE | 2019-12-13 09:21 | P.PN ---
Subjective Progress Note Date: 12/13/19 This is a 64-year-old female who is status post right total hip arthroplasty. This is postoperative day #1 and patient is seen and evaluated at bedside with Dr. Deep Ponce. Patient states that her pain is well-controlled and she has been up and walking with physical therapy. Patient denies any fever/chills, numbness, weakness, tingling, abdominal pain, shortness of breath or chest pain. Objective - Vital Signs Vital signs: Vital Signs Temp 97.9 F 12/13/19 02:35 Pulse 79 12/13/19 02:35 Resp 18 12/12/19 19:30 BP 96/59 12/13/19 02:35 Pulse Ox 98 12/13/19 02:35 Intake & Output 12/12/19 12/13/19 12/13/19 18:59 06:59 18:59 Intake Total 451 500 Output Total 200 650 Balance 251 -150 Weight 92.8 kg Intake: IV 451 Intake, IV Titration 500 Amount Lactated Ringers 1,000 ml 500 @ 250 mls/hr IV .Q4H PRN Rx#:[id number] Output: Urine 650 Estimated Blood Loss 200 Other: # Voids 1 - Exam Vital signs are stable. Patient is in no acute distress and is alert and oriented 3. Calf is soft and nontender to palpation. Dressing is clean, dry, and intact. Patient has full foot and ankle motion without pain or difficulty. Neurovascular status and circulatory status are intact. - Labs CBC & Chem 7: 12/13/19 07:12 Labs: Abnormal Lab Results - Last 24 Hours (Table) 12/13/19 Range/Units 07:12 RBC 3.36 L (3.80-5.40) m/uL MCV 102.2 H (80.0-100.0) fL Assessment and Plan (1) Osteoarthritis of right hip Current Visit: Yes Status: Acute Code(s): M16.11 - UNILATERAL PRIMARY OSTEOARTHRITIS, RIGHT HIP SNOMED Code(s): 621314749821080 (2) Status post total hip replacement, right Current Visit: Yes Status: Acute Code(s): Z96.641 - PRESENCE OF RIGHT ARTIFICIAL HIP JOINT SNOMED Code(s): 303700372226 Plan: Continue routine postop care and pain control. Continue anticoagulation with aspirin. Weightbearing as tolerated with a walker. Leave dressing in place for 10 days. Appreciate input from medicine. Patient is awaiting rehab placement.
[2019-12-13] MEDS: FOLIC ACID 1 MG TAB PO SCH (10:03)
[2019-12-13] MEDS: DESVENLAFAXINE SUCCINATE 50 MG TAB.ER.24H PO SCH (10:04)
[2019-12-13] MEDS: MELOXICAM 7.5 MG TAB PO SCH (10:04)
[2019-12-13] MEDS: ASPIRIN 325 MG TAB PO SCH ×2 (10:04→19:59)
[2019-12-13] MEDS: LEVOTHYROXINE 112 MCG TAB PO SCH (10:05)
[2019-12-13] MEDS: CALCIUM CARBONATE 500 MG CHEWABLE PO SCH (10:05)
[2019-12-13] MEDS: MULTIVITAMINS, THERA 1 EACH TAB PO SCH (10:06)
[2019-12-13] MEDS: ALPRAZolam 1 MG TAB PO SCH ×2 (10:06→19:59)
[2019-12-13] MEDS: ARTIFICIAL TEARS-HYPROMELLOSE DROPS 15 ML BTL BOTH EYES SCH ×2 (12:47→19:59)
--- NOTE | 2019-12-13 17:03 | P.CONS ---
History of Present Illness - Reason for Consult Consult date: 12/13/19 Medical management Requesting physician: Deep Ponce - Chief Complaint Right hip surgery - History of Present Illness Consultation: This is a very pleasant 64-year-old patient of Dr. Seals. Chronic stable medical conditions include fibromyalgia, GERD, hypertension, Stephon arthritis, hypothyroid, Sjogren syndrome, irritable bowel syndrome, anxiety depression, lupus. Unfortunately 2 weeks ago her son and this is really bearing very heavy on her. Patient has undergone right total hip arthroplasty. Postprocedure. Is controlled. Did tolerate her breakfast this morning. No nausea vomiting. No chest pain or shortness of breath. Did work is physical therapy. Patient has a family the bedside. Review of systems: GEN.: None EYES: None HEENT: None NECK: None RESPIRATORY: None CARDIOVASCULAR: None GASTROINTESTINAL: None GENITOURINARY: Joint pains MUSCULOSKELETAL: None LYMPHATICS: None HEMATOLOGICAL: None PSYCHIATRY: Slightly anxious NEUROLOGICAL: None Social history: Does not smoke or drink alcohol. Lives alone. Physical examination: VITAL SIGNS: 98.1, 83, 16, 94/59, 99% room air GENERAL: BMI 34, sitting up, comfortable. EYES: Pupils equal. Conjunctiva normal. HEENT: External appearance of nose and ears normal, oral cavity grossly normal. NECK: JVD not raised; masses not palpable. HEART: First and second heart sounds are normal; no edema. LUNGS: Respiratory rate normal; clear to auscultation. ABDOMEN: Soft, nontender, liver spleen not palpable, no masses palpable. PSYCH: Alert and oriented x3; mood and affect normal. MUSCULAR schedule: Dressing over the right hip, evidence of OA in the hands NEUROLOGICAL: Cranial nerves grossly intact; no facial asymmetry, power and sensation grossly intact. LYMPHATICS: No lymph nodes palpable in the axilla and neck INVESTIGATIONS, reviewed in the clinical context: Hemoglobin 11.6 Labs from December 01: Hemoglobin 14.5 potassium 4.2 bun 27 crit 0.53 Assessment: -Right total hip arthroplasty -Chronic fibromyalgia -GERD -Essential hypertension -Primary osteoarthritis -Hypothyroid -Sjogren syndrome -Irritable bowel syndrome -Anxiety depression otherwise specified -Lupus -Postop hypotension possibly multifactorial Plan: At this point patient antihypertensive to be held off. I did order fluid bolus earlier today. Patient otherwise is relatively asymptomatic. On aspirin for DVT prophylaxis. Care was discussed with the patient question were answered. Thank you Dr. Ponec Past Medical History Past Medical History: Fibromyalgia, GERD/Reflux, Hypertension, Musculoskeletal Disorder, Osteoarthritis (OA), Thyroid Disorder Additional Past Medical History / Comment(s): CHRONIC LOWER BACK PAIN, LUPUS, IBS, Sjogren's-dry painful mouth, recent stress test History of Any Multi-Drug Resistant Organisms: None Reported Past Surgical History: Bariatric Surgery, Bladder Surgery, Breast Surgery Additional Past Surgical History / Comment(s): LAP BAND, BLADDER SLING, TAI. BREAST REDUCTION, EYE LID SURGERY lap band removal 07-04-19 Past Anesthesia/Blood Transfusion Reactions: Motion Sickness, No Reported React ion Past Psychological History: Anxiety, Depression, Panic Disorder Additional Psychological History / Comment(s): PT'S SON JUST 2 WEEKS AGO- AUTOPSY RESULTS NOT BACK YET-PT TEARY AT TIMES Smoking Status: Never smoker Past Alcohol Use History: Rare Past Drug Use History: None Reported - Past Family History Mother Family Medical History: Diabetes Mellitus, Hypertension Additional Family Medical History / Comment(s): OBESITY, NEUROPATHY-EVENTALLY IN W/C -COULDN'T FEEL FEET. Father Family Medical History: No Reported History Additional Family Medical History / Comment(s): AGE 92-JUST DROVE UP FROM [place] FOR GRANDSON'S Medications and Allergies Home Medications Medication Instructions Recorded Confirmed Type ALPRAZolam [Xanax] 1 mg PO BID 01/01/16 12/12/19 History Levothyroxine Sodium [Synthroid] 112 mcg PO QAM 01/01/16 12/12/19 History Lisinopril-Hctz 20-25 mg 1 tab PO QAM 01/01/16 12/12/19 History [Zestoretic 20-25] Multivitamins, Thera [Multivitamin] 1 tab PO DAILY 01/01/16 12/12/19 History Cyanocobalamin [Vitamin B-12] 1,000 mcg PO DAILY 05/01/16 12/12/19 History Desvenlafaxine Succinate [Pristiq] 100 mg PO QAM 03/23/19 12/12/19 History Propylene Glycol [Systane Complete] 1 drop BOTH EYES BID 06/23/19 12/12/19 History Acetaminophen/Diphenhydramine 1 tab PO HS 12/05/19 12/12/19 History [Tylenol Pm Ex-Strength Caplet] Folic Acid 2 mg PO DAILY 12/05/19 12/12/19 History Methotrexate Sodium [Methotrexate] 5 tab PO SA 12/05/19 12/12/19 History Calcium Carbonate [Calcium] 500 mg PO DAILY 12/06/19 12/12/19 History Allergies Allergy/AdvReac Type Severity Reaction Status Date / Time codeine AdvReac Unknown Headache Verified 12/12/19 11:47 hydrocodone [From Avalon] AdvReac Unknown FELT Verified 12/12/19 11:47 SPACEY, NO CONTROL- DOES NOT WANT. Physical Exam Vitals: Vital Signs Temp Pulse Pulse Resp BP Pulse Ox 12/13/19 07:23 98.1 F 83 16 94/59 99 12/13/19 02:35 97.9 F 79 96/59 98 12/12/19 21:55 76 80/54 98 12/12/19 21:35 78 83/51 12/12/19 21:20 74 80/48 12/12/19 21:15 82 102/66 97 12/12/19 21:05 72 75/48 92 L 12/12/19 20:55 72 85/56 94 L 12/12/19 20:30 69 76/47 93 L 12/12/19 20:15 84 78/48 93 L 12/12/19 20:00 83 68/41 95 12/12/19 19:45 84 74/47 94 L 12/12/19 19:30 98.3 F 82 18 65/35 95 12/12/19 17:15 80 93/59 12/12/19 17:00 71 90/61 12/12/19 16:45 72 95/64 12/12/19 16:30 70 90/59 12/12/19 16:15 66 97/62 12/12/19 16:00 70 90/58 12/12/19 15:45 71 88/53 12/12/19 15:30 68 88/55 12/12/19 15:15 97.9 F 65 16 92/58 100 12/12/19 15:01 65 18 110/60 100 12/12/19 14:46 62 14 104/58 100 12/12/19 14:31 62 16 99/56 99 12/12/19 14:15 97.9 F 71 16 98/62 96 12/12/19 11:03 98.1 F 89 17 118/74 97 Intake and Output 12/12/19 12/13/19 12/13/19 22:59 06:59 14:59 Intake Total 500 Output Total 300 350 Balance 200 -350 Intake: IV 0 Intake, IV Titration 500 Amount Lactated Ringers 1,000 ml 500 @ 250 mls/hr IV .Q4H PRN Rx#:[id number] Output: Urine 300 350 Other: # Voids 1 1 Weight 92.8 kg Results CBC & Chem 7: 12/13/19 07:12 Labs: Abnormal Lab Results - Last 24 Hours (Table) 12/13/19 Range/Units 07:12 RBC 3.36 L (3.80-5.40) m/uL MCV 102.2 H (80.0-100.0) fL
[2019-12-13] MEDS: SENNOSIDES-DOCUSATE SODIUM 1 EACH TAB PO SCH (19:59)
[2019-12-14] MEDS: LEVOTHYROXINE 112 MCG TAB PO SCH (05:44)
[2019-12-14] MEDS: traMADol 50 MG TAB PO PRN ×3 (05:59→18:35)
--- NOTE | 2019-12-14 09:30 | P.PN ---
Subjective Progress Note Date: 12/14/19 Principal diagnosis: Primary osteoarthritis right hip. This is a pleasant 64-year-old female who is status post total right hip arthroplasty with direct anterior approach on 12/13/2019. She is doing fairly well from an orthopedic standpoint. She has no new implants or concerns today. She is a bit unsure about going home and would like to consider inpatient rehab. Her vital signs are stable. Objective - Vital Signs Vital signs: Vital Signs Temp 98.0 F 12/14/19 01:59 Pulse 81 12/14/19 01:59 Resp 18 12/14/19 01:59 BP 128/82 12/14/19 01:59 Pulse Ox 95 12/14/19 01:59 Intake & Output 12/13/19 12/14/19 12/14/19 18:59 06:59 18:59 Intake Total 560 Balance 560 Intake: Intake, IV Titration 560 Amount Sodium Chloride 0.9% 1, 560 000 ml @ 70 mls/hr IV . [id number] [facility] Rx#:[id number] Other: Voiding Method Toilet # Voids 1 3 - Exam This is a pleasant 64-year-old female in no acute distress. She is alert and oriented 3. Exam of the right hip reveals that her dressing is clean, dry and intact. She has full foot and ankle motion without difficulty or pain. Neurovascular status to the lower extremities is intact. - Labs CBC & Chem 7: 12/13/19 07:12 Assessment and Plan (1) Osteoarthritis of right hip Current Visit: Yes Status: Acute Code(s): M16.11 - UNILATERAL PRIMARY OSTEOARTHRITIS, RIGHT HIP SNOMED Code(s): 265088115547440 (2) Status post total hip replacement, right Current Visit: Yes Status: Acute Code(s): Z96.641 - PRESENCE OF RIGHT ARTIFICIAL HIP JOINT SNOMED Code(s): 586295702464 Plan: The clinical findings are discussed with the patient. We will continue with physical therapy and planned on discharge to inpatient rehab when cleared medically.
[2019-12-14] MEDS: ARTIFICIAL TEARS-HYPROMELLOSE DROPS 15 ML BTL BOTH EYES SCH ×2 (10:35→20:06)
[2019-12-14] MEDS: ASPIRIN 325 MG TAB PO SCH ×2 (10:37→20:06)
[2019-12-14] MEDS: DESVENLAFAXINE SUCCINATE 50 MG TAB.ER.24H PO SCH (10:37)
[2019-12-14] MEDS: CALCIUM CARBONATE 500 MG CHEWABLE PO SCH (10:37)
[2019-12-14] MEDS: MELOXICAM 7.5 MG TAB PO SCH (10:38)
[2019-12-14] MEDS: FOLIC ACID 1 MG TAB PO SCH (10:38)
[2019-12-14] MEDS: MULTIVITAMINS, THERA 1 EACH TAB PO SCH (10:40)
[2019-12-14] MEDS: ALPRAZolam 1 MG TAB PO SCH ×2 (10:40→20:07)
[2019-12-14] MEDS: SODIUM CHLORIDE 0.9% 1,000 ML IV SCH (20:07)
[2019-12-14] MEDS: SENNOSIDES-DOCUSATE SODIUM 1 EACH TAB PO SCH (20:07)
[2019-12-14] MEDS: LACTATED RINGERS 1,000 ML IV SCH (22:17)
--- NOTE | 2019-12-15 00:32 | P.PN ---
Progress Note - Text Progress Note Date: 12/14/19 - Chief Complaint Right hip surgery Consultation: This is a very pleasant 64-year-old patient of Dr. Seals. Chronic stable medical conditions include fibromyalgia, GERD, hypertension, Stephon arthritis, hypothyroid, Sjogren syndrome, irritable bowel syndrome, anxiety depression, lupus. Unfortunately 2 weeks ago her son and this is really bearing very heavy on her. Patient has undergone right total hip arthroplasty. Today-sitting up. Feeling better. Did work with therapy. Some pain is present. No nausea vomiting. Breathing is stable. Review of systems: Was done for constitutional, cardiovascular, GI, pulmonary. relevant finding as above Active Medications Alprazolam (Xanax) 1 mg PO BID [facility] Last Admin: 12/14/19 20:07 Dose: 1 mg Documented by: Artificial Tears (Artificial Tear Drops) 1 drops BOTH EYES BID [facility] Last Admin: 12/14/19 20:06 Dose: 1 drops Documented by: Aspirin (Aspirin) 325 mg PO BID [facility] Last Admin: 12/14/19 20:06 Dose: 325 mg Documented by: Calcium Carbonate/Glycine (Tums) 500 mg PO DAILY [facility] Last Admin: 12/14/19 10:37 Dose: 500 mg Documented by: Desvenlafaxine Succinate (Pristiq Er) 100 mg PO QAM [facility] Last Admin: 12/14/19 10:37 Dose: 100 mg Documented by: Diazepam (Valium) 2.5 mg PO Q8HR PRN PRN Reason: Mild Spasms Folic Acid (Folic Acid) 2 mg PO DAILY [facility] Last Admin: 12/14/19 10:38 Dose: 2 mg Documented by: Hydromorphone HCl (Dilaudid) 0.25 mg IVP Q3HR PRN PRN Reason: Pain Scale 1 to 3 Hydromorphone HCl (Dilaudid) 1 mg IVP Q3HR PRN PRN Reason: Pain Scale 7 to 10 Hydromorphone HCl (Dilaudid) 0.5 mg IVP Q3HR PRN PRN Reason: Pain Scale 4 to 6 Last Admin: 12/12/19 17:19 Dose: 0.5 mg Documented by: Hydroxyzine Pamoate (Vistaril) 25 mg PO Q4HR PRN PRN Reason: Nausea, Anxiety, Pain Control Last Admin: 12/13/19 03:05 Dose: 25 mg Documented by: Lactated Ringer's (Lactated Ringers) 1,000 mls @ 20 mls/hr IV .Q24H [facility] Last Admin: 12/14/19 22:17 Dose: Not Given Documented by: Sodium Chloride (Saline 0.9%) 1,000 mls @ 70 mls/hr IV .[id number] [facility] Last Admin: 12/14/19 20:07 Dose: Not Given Documented by: Lactated Ringer's (Lactated Ringers) 1,000 mls @ 250 mls/hr IV .Q4H PRN PRN Reason: Blood Pressure - Low Last Admin: 12/12/19 20:07 Dose: 250 mls/hr Documented by: Levothyroxine Sodium (Synthroid) 112 mcg PO QAM@0630 [facility] Last Admin: 12/14/19 05:44 Dose: 112 mcg Documented by: Lidocaine HCl (.Xylocaine 1% Inj (10mg/Ml) For Iv Start) 0.1 ml INTRADERMA PER PROTOCOL PRN PRN Reason: IV Start Last Admin: 12/12/19 11:36 Dose: 0.1 ml Documented by: Magnesium Hydroxide (Milk Of Magnesia) 2,400 mg PO DAILY PRN PRN Reason: Constipation Meloxicam (Mobic) 7.5 mg PO DAILY [facility] Last Admin: 12/14/19 10:38 Dose: 7.5 mg Documented by: Methotrexate (Methotrexate) 12.5 mg PO [facility] Multivitamins (Theragran) 1 each PO DAILY [facility] Last Admin: 12/14/19 10:40 Dose: 1 each Documented by: Naloxone HCl (Narcan) 0.2 mg IV Q2M PRN PRN Reason: Opioid Reversal Ondansetron HCl (Zofran) 4 mg IVP Q8H PRN PRN Reason: Nausea And Vomiting Senna/Docusate Sodium (Senokot-S) 2 each PO HS [facility] Last Admin: 12/14/19 20:07 Dose: 2 each Documented by: Tramadol HCl (Ultram) 50 mg PO Q6H PRN PRN Reason: Pain Scale 1 to 5 Last Admin: 12/14/19 11:45 Dose: 50 mg Documented by: Tramadol HCl (Ultram) 100 mg PO QID PRN PRN Reason: Pain Scale 6 to 10 Last Admin: 12/14/19 18:35 Dose: 100 mg Documented by: Physical examination: VITAL SIGNS: 99.3, 108, 18, 108/77, 95% room air GENERAL: BMI 34, sitting up, comfortable. EYES: Pupils equal. Conjunctiva normal. HEENT: External appearance of nose and ears normal, oral cavity grossly normal. NECK: JVD not raised; masses not palpable. HEART: First and second heart sounds are normal; no edema. LUNGS: Respiratory rate normal; clear to auscultation. ABDOMEN: Soft, nontender, liver spleen not palpable, no masses palpable. PSYCH: Alert and oriented x3; mood and affect normal. MUSCULAR schedule: Dressing over the right hip, evidence of OA in the hands INVESTIGATIONS, reviewed in the clinical context: Hemoglobin 11.6 Labs from December 01: Hemoglobin 14.5 potassium 4.2 bun 27 crit 0.53 Assessment: -Right total hip arthroplasty -Chronic fibromyalgia -GERD -Essential hypertension -Primary osteoarthritis -Hypothyroid -Sjogren syndrome -Irritable bowel syndrome -Anxiety depression otherwise specified -Lupus -Postop hypotension possibly multifactorial Plan: Patient did have postop hypotension. Receive fluid bolus. Blood pressure did come up. We'll DC the IV fluid. Watch blood pressure closely. Thank you Dr. Ponce
[2019-12-15] MEDS: traMADol 50 MG TAB PO PRN ×3 (00:54→20:11)
[2019-12-15] MEDS: LEVOTHYROXINE 112 MCG TAB PO SCH (05:47)
[2019-12-15 07:01] LABS: Basophils % (A) 0 %; Eosinophils % (A) 0 %; HCT 31.3 % (34.0-46.0); HGB 10.4 gm/dL (11.4-16.0); Lymphocytes # (A) 1.2 k/uL (1.0-4.8); Lymphocytes % (A) 17 %; MCH 33.7 pg (25.0-35.0); MCHC 33.1 g/dL (31.0-37.0); MCV 101.9 fL (80.0-100.0); Macrocytosis Slight; Mean Platelet Volume 6.8; Monocytes # (A) 0.5 k/uL (0-1.0); Monocytes % (A) 7 %; Neutrophils # (A) 4.9 k/uL (1.3-7.7); Neutrophils % (A) 73 %; Platelet Count 238 k/uL (150-450); RBC 3.07 m/uL (3.80-5.40); RDW 13.5 % (11.5-15.5); WBC 6.7 k/uL (3.8-10.6)
[2019-12-15] MEDS: DESVENLAFAXINE SUCCINATE 50 MG TAB.ER.24H PO SCH (08:32)
[2019-12-15] MEDS: CALCIUM CARBONATE 500 MG CHEWABLE PO SCH (08:33)
[2019-12-15] MEDS: MELOXICAM 7.5 MG TAB PO SCH (08:33)
[2019-12-15] MEDS: MULTIVITAMINS, THERA 1 EACH TAB PO SCH (08:33)
[2019-12-15] MEDS: ALPRAZolam 1 MG TAB PO SCH ×2 (08:33→20:12)
[2019-12-15] MEDS: ASPIRIN 325 MG TAB PO SCH ×2 (08:33→20:12)
[2019-12-15] MEDS: FOLIC ACID 1 MG TAB PO SCH (08:33)
[2019-12-15] MEDS: ARTIFICIAL TEARS-HYPROMELLOSE DROPS 15 ML BTL BOTH EYES SCH ×2 (09:20→20:12)
--- NOTE | 2019-12-15 09:36 | P.PN ---
Subjective Progress Note Date: 12/15/19 Principal diagnosis: Primary osteoarthritis right hip. This is a pleasant 64-year-old female who is status post total right hip arthroplasty with direct anterior approach on 12/13/2019. She is doing fairly well from an orthopedic standpoint. She has no new implants or concerns today. A peer to peer interview was performed yesterday by myself with her insurance company to discuss inpatient rehab. Her insurance company is denying her request to go to rehab. Her vital signs are stable. Objective - Vital Signs Vital signs: Vital Signs Temp 98.1 F 12/15/19 07:00 Pulse 91 12/15/19 07:00 Resp 16 12/15/19 08:40 BP 101/65 12/15/19 07:00 Pulse Ox 97 12/15/19 07:00 Intake & Output 12/14/19 12/15/19 12/15/19 18:59 06:59 18:59 Other: Voiding Method Toilet Toilet # Voids 2 2 - Exam This is a pleasant 64-year-old female in no acute distress. She is alert and oriented 3. Exam of the right hip reveals that her dressing is clean, dry and intact. She has full foot and ankle motion without difficulty or pain. Neurovascular status to the lower extremities is intact. - Labs CBC & Chem 7: 12/15/19 06:26 Labs: Abnormal Lab Results - Last 24 Hours (Table) 12/15/19 Range/Units 06:26 RBC 3.07 L (3.80-5.40) m/uL Hgb 10.4 L (11.4-16.0) gm/dL Hct 31.3 L (34.0-46.0) % MCV 101.9 H (80.0-100.0) fL Assessment and Plan (1) Osteoarthritis of right hip Current Visit: Yes Status: Acute Code(s): M16.11 - UNILATERAL PRIMARY OSTEO ARTHRITIS, RIGHT HIP SNOMED Code(s): 414729217498407 (2) Status post total hip replacement, right Current Visit: Yes Status: Acute Code(s): Z96.641 - PRESENCE OF RIGHT ARTIFICIAL HIP JOINT SNOMED Code(s): 196635021003 Plan: The clinical findings are discussed with the patient. We will continue with physical therapy and planned on discharge to home tomorrow if cleared medically. We will arrange for home care.
[2019-12-15] MEDS: SENNOSIDES-DOCUSATE SODIUM 1 EACH TAB PO SCH (20:12)
[2019-12-15] MEDS: LACTATED RINGERS 1,000 ML IV SCH (22:35)
[2019-12-16] MEDS: LEVOTHYROXINE 112 MCG TAB PO SCH (05:36)
[2019-12-16] MEDS: traMADol 50 MG TAB PO PRN ×2 (05:39→13:44)
[2019-12-16] MEDS: DESVENLAFAXINE SUCCINATE 50 MG TAB.ER.24H PO SCH (08:06)
[2019-12-16] MEDS: ASPIRIN 325 MG TAB PO SCH (08:06)
[2019-12-16] MEDS: ARTIFICIAL TEARS-HYPROMELLOSE DROPS 15 ML BTL BOTH EYES SCH (08:06)
[2019-12-16] MEDS: ALPRAZolam 1 MG TAB PO SCH (08:06)
[2019-12-16] MEDS: CALCIUM CARBONATE 500 MG CHEWABLE PO SCH (08:06)
[2019-12-16] MEDS: FOLIC ACID 1 MG TAB PO SCH (08:07)
[2019-12-16] MEDS: MELOXICAM 7.5 MG TAB PO SCH (08:08)
[2019-12-16] MEDS: MULTIVITAMINS, THERA 1 EACH TAB PO SCH (08:08)
--- NOTE | 2019-12-16 10:15 | P.DS ---
Providers Date of admission: 12/13/19 10:18 Expected date of discharge: 12/16/19 Attending physician: Deep Ponce Consults: 12/12/19 10:38 Consult Physician Routine Consulting Provider: Shiva Johns Consult Reason/Comments: medical management Do you want consulting provider notified?: Yes Primary care physician: [facility] Course: This is a 64- year old female who has been followed in the office for severe right hip osteoarthritis. After failure of conservative treatment, the discussion was had between surgical and nonsurgical treatment. The patient wished to proceed with a total hip arthroplasty. The patient was admitted to our service at [facility] on 12/13/19 following the procedure. The procedure was performed without complication or sequelae. The patient is doing fairly well postoperatively. Patient is ambulating with a walker and minimal assistance and minimal pain. Vital signs and labs are stable on postoper ative day #3. Patient was examined bedside today. She states she is feeling well this morning. She states her pain in the right hip is controlled. She is tolerating her diet well. She denies chest pain, shortness breath, nausea, vomiting, numbness or tingling of the right lower extremity. On examination, the patient is alert and orientated x3. On inspection of the Right hip, the dressing is clean, dry, and intact. She has full foot and ankle motion without difficulty or pain. Neurovascular status to the lower extremities is intact. Patient is discharged home in good condition, pending medical clearance. Patient will follow-up with Dr. Ponce in the office in 2 weeks. Please see med rec for accurate list of discharge medication. Plan - Discharge Summary Discharge Rx Participant: Yes New Discharge Prescriptions: New Aspirin 325 mg PO BID #60 tab Sennosides-Docusate Sodium [Senokot-S] 1 tab PO BID #60 tablet traMADol HCL [Ultram] 50 - 100 mg PO Q6HR PRN #30 tab PRN Reason: Pain No Action Multivitamins, Thera [Multivitamin] 1 tab PO DAILY Lisinopril-Hctz 20-25 mg [Zestoretic 20-25] 1 tab PO QAM Levothyroxine Sodium [Synthroid] 112 mcg PO QAM ALPRAZolam [Xanax] 1 mg PO BID Cyanocobalamin [Vitamin B-12] 1,000 mcg PO DAILY Desvenlafaxine Succinate [Pristiq] 100 mg PO QAM Propylene Glycol [Systane Complete] 1 drop BOTH EYES BID Acetaminophen/Diphenhydramine [Tylenol Pm Ex-Strength Caplet] 1 tab PO HS Folic Acid 2 mg PO DAILY Methotrexate Sodium [Methotrexate] 5 tab PO SA Calcium Carbonate [Calcium] 500 mg PO DAILY Discharge Medication List ALPRAZolam [Xanax] 1 mg PO BID 01/01/16 [History] Levothyroxine Sodium [Synthroid] 112 mcg PO QAM 01/01/16 [History] Lisinopril-Hctz 20-25 mg [Zestoretic 20-25] 1 tab PO QAM 01/01/16 [History] Multivitamins, Thera [Multivitamin] 1 tab PO DAILY 01/01/16 [History] Cyanocobalamin [Vitamin B-12] 1,000 mcg PO DAILY 05/01/16 [History] Desvenlafaxine Succinate [Pristiq] 100 mg PO QAM 03/23/19 [History] Propylene Glycol [Systane Complete] 1 drop BOTH EYES BID 06/23/19 [History] Acetaminophen/Diphenhydramine [Tylenol Pm Ex-Strength Caplet] 1 tab PO HS 12/05/19 [History] Folic Acid 2 mg PO DAILY 12/05/19 [History] Methotrexate Sodium [Methotrexate] 5 tab PO SA 12/05/19 [History] Calcium Carbonate [Calcium] 500 mg PO DAILY 12/06/19 [History] Aspirin 325 mg PO BID #60 tab 12/15/19 [Rx] Sennosides-Docusate Sodium [Senokot-S] 1 tab PO BID #60 tablet 12/15/19 [Rx] traMADol HCL [Ultram] 50 - 100 mg PO Q6HR PRN #30 tab 12/15/19 [Rx] Follow up Appointment(s)/Referral(s): Jeff Seals MD [Primary Care Provider] - 01/03/20 11:00 am Deep Ponce DO [Doctor of Osteopathic Medicine] - 12/28/19 10:30 am [facility] Visiting Nurse, [NON-STAFF] - Activity/Diet/Wound Care/Special Instructions: Weightbearing as tolerated with walker. Leave dressing intact. Dressing may be removed by home care nurse or by patient in 10 days. May shower with dressing on. Recommend use of compression stockings daily for at least 2 weeks during the day to help prevent swelling and blood clots. May remove at night before sleeping. Please follow-up with [facility] in 2 weeks and call with any questio ns or concerns, . Discharge Disposition: HOME WITH HOME HEALTH SERVICES
--- NOTE | 2019-12-16 10:35 | P.PN ---
Progress Note - Text Progress Note Date: 12/15/19 - Chief Complaint Right hip surgery Consultation: This is a very pleasant 64-year-old patient of Dr. Seals. Chronic stable medical conditions include fibromyalgia, GERD, hypertension, Stephon arthritis, hypothyroid, Sjogren syndrome, irritable bowel syndrome, anxiety depression, lupus. Unfortunately 2 weeks ago her son and this is really bearing very heavy on her. Patient has undergone right total hip arthroplasty. Today-continues to feel better. Pain better controlled. Tolerating a diet. Did work with therapy. Probably will be going home. Review of systems: Was done for constitutional, cardiovascular, GI, pulmonary. relevant finding as above Active Medications Alprazolam (Xanax) 1 mg PO BID [facility] Last Admin: 12/16/19 08:06 Dose: 1 mg Documented by: Artificial Tears (Artificial Tear Drops) 1 drops BOTH EYES BID [facility] Last Admin: 12/16/19 08:06 Dose: 1 drops Documented by: Aspirin (Aspirin) 325 mg PO BID [facility] Last Admin: 12/16/19 08:06 Dose: 325 mg Documented by: Calcium Carbonate/Glycine (Tums) 500 mg PO DAILY [facility] Last Admin: 12/16/19 08:06 Dose: 500 mg Documented by: Desvenlafaxine Succinate (Pristiq Er) 100 mg PO QAM [facility] Last Admin: 12/16/19 08:06 Dose: 100 mg Documented by: Diazepam (Valium) 2.5 mg PO Q8HR PRN PRN Reason: Mild Spasms Folic Acid (Folic Acid) 2 mg PO DAILY [facility] Last Admin: 12/16/19 08:07 Dose: 2 mg Documented by: Hydromorphone HCl (Dilaudid) 0.25 mg IVP Q3HR PRN PRN Reason: Pain Scale 1 to 3 Hydromorphone HCl (Dilaudid) 1 mg IVP Q3HR PRN PRN Reason: Pain Scale 7 to 10 Hydromorphone HCl (Dilaudid) 0.5 mg IVP Q3HR PRN PRN Reason: Pain Scale 4 to 6 Last Admin: 12/12/19 17:19 Dose: 0.5 mg Documented by: Hydroxyzine Pamoate (Vistaril) 25 mg PO Q4HR PRN PRN Reason: Nausea, Anxiety, Pain Control Last Admin: 12/13/19 03:05 Dose: 25 mg Documented by: Lactated Ringer's (Lactated Ringers) 1,000 mls @ 20 mls/hr IV .Q24H [facility] Last Admin: 12/15/19 22:35 Dose: Not Given Documented by: Lactated Ringer's (Lactated Ringers) 1,000 mls @ 250 mls/hr IV .Q4H PRN PRN Reason: Blood Pressure - Low Last Admin: 12/12/19 20:07 Dose: 250 mls/hr Documented by: Levothyroxine Sodium (Synthroid) 112 mcg PO QAM@0630 [facility] Last Admin: 12/16/19 05:36 Dose: 112 mcg Documented by: Lidocaine HCl (.Xylocaine 1% Inj (10mg/Ml) For Iv Start) 0.1 ml INTRADERMA PER PROTOCOL PRN PRN Reason: IV Start Last Admin: 12/12/19 11:36 Dose: 0.1 ml Documented by: Magnesium Hydroxide (Milk Of Magnesia) 2,400 mg PO DAILY PRN PRN Reason: Constipation Meloxicam (Mobic) 7.5 mg PO DAILY [facility] Last Admin: 12/16/19 08:08 Dose: 7.5 mg Documented by: Methotrexate (Methotrexate) 12.5 mg PO [facility] Multivitamins (Theragran) 1 each PO DAILY [facility] Last Admin: 12/16/19 08:08 Dose: 1 each Documented by: Naloxone HCl (Narcan) 0.2 mg IV Q2M PRN PRN Reason: Opioid Reversal Ondansetron HCl (Zofran) 4 mg IVP Q8H PRN PRN Reason: Nausea And Vomiting Senna/Docusate Sodium (Senokot-S) 2 each PO HS [facility] Last Admin: 12/15/19 20:12 Dose: 2 each Documented by: Tramadol HCl (Ultram) 50 mg PO Q6H PRN PRN Reason: Pain Scale 1 to 5 Last Admin: 12/15/19 09:21 Dose: 50 mg Documented by: Tramadol HCl (Ultram) 100 mg PO QID PRN PRN Reason: Pain Scale 6 to 10 Last Admin: 12/16/19 05:39 Dose: 100 mg Documented by: Physical examination: VITAL SIGNS: 98.4, 94, 15, 99/65, 98% on room air GENERAL: Propped up in bed, comfortable. EYES: Pupils equal. Conjunctiva normal. HEENT: External appearance of nose and ears normal, oral cavity grossly normal. NECK: JVD not raised; masses not palpable. HEART: First and second heart sounds are normal; no edema. LUNGS: Respiratory rate normal; clear to auscultation. ABDOMEN: Soft, nontender, liver spleen not palpable, no masses palpable. PSYCH: Alert and oriented x3; mood and affect normal. MUSCULAR schedule: Dressing over the right hip, evidence of OA in the hands INVESTIGATIONS, reviewed in the clinical context: Hemoglobin 10.4 Labs from December 01: Hemoglobin 14.5 potassium 4.2 bun 27 crit 0.53 Assessment: -Right total hip arthroplasty -Chronic fibromyalgia -GERD -Essential hypertension -Primary osteoarthritis -Hypothyroid -Sjogren syndrome -Irritable bowel syndrome -Anxiety depression otherwise specified -Lupus -Postop hypotension possibly multifactorial -Acute postprocedure blood loss anemia. Ex expected from surgery. Plan: Patient is clinically doing well. May add iron supplement upon discharge. Discussed with the patient. Thank you Dr. Ponce
[2019-12-16 15:02] VITALS: BP 129/66; PULSE 94; RESP 17; TEMP 98.2
[2019-12-17] MEDS ORDERED: METHOTREXATE SODIUM 2.5 MG TAB PO SCH (09:00)
== END 2019-12-16 16:21 | disposition home health service (06) | DRG 470 ==
LOC: ORWHC2ENDO 10:44 → 4SSUR 14:08 → EDSTATUS 15:25 → MERGE 15:25 → 4SSUR 12-13 10:18 → ORWHC2ENDO 12-13 10:18
PROVIDERS: ADMIT Orthopaedic Surgery; ATTEND Orthopaedic Surgery
PROC: 0SR906A Replacement of Right Hip Joint with Oxidized Zirconium on Polyethylene Synthetic Substitute, Uncemented, Open Approach (ICD-10-PCS; principal; 2019-12-12 12:30)
DX: M16.11 Unilateral primary osteoarthritis, right hip (principal); D62 Acute posthemorrhagic anemia; I95.9 Hypotension, unspecified; E03.9 Hypothyroidism, unspecified; F41.0 Panic disorder [episodic paroxysmal anxiety]; F41.8 Other specified anxiety disorders; I10 Essential (primary) hypertension; K21.9 Gastro-esophageal reflux disease without esophagitis; K58.9 Irritable bowel syndrome, unspecified; M32.9 Systemic lupus erythematosus, unspecified; M35.00 Sjogren syndrome, unspecified; M79.7 Fibromyalgia; Z79.890 Hormone replacement therapy; Z82.49 Family history of ischemic heart disease and other diseases of the circulatory system; Z83.3 Family history of diabetes mellitus; Z63.4 Disappearance and death of family member; Z82.0 Family history of epilepsy and other diseases of the nervous system; Z79.82 Long term (current) use of aspirin; Z79.899 Other long term (current) drug therapy; Z88.5 Allergy status to narcotic agent
CPT/HCPCS: 73501; 85025; 86850; 86891; 86900; 86901; 88300

== ENCOUNTER → 2020-09-25 | Outpatient (CLI) | payer MEDICARE ==
--- NOTE | 2020-09-25 16:20 | BD ---
EXAMINATION TYPE: Axial Bone Density DATE OF EXAM: 09/25/2020 COMPARISON: 01/26/2018 CLINICAL HISTORY: 65-year-old female postmenopausal screening Height: 5 FT 5 IN Weight: 231 FRAX RISK QUESTIONS: Alcohol (3 or more units per day): NO Family History (Parent hip fracture): NO Glucocorticoids (More than 3mos): NO (Ex: prednisone, prednisolone, methylprednisolone, dexamethasone, and hydrocortisone). History of Fracture in Adulthood: YES Secondary Osteoporosis: 1. Type 1 Diabetes: NO 2. Hyperthyroidism: NO 3. Menopause before 45: NO 4. Malnutrition: NO 5. Chronic liver disease: NO Rheumatoid Arthritis: NO Current Tobacco Use: NO RISK FACTORS HISTORY OF: Surgery to Spine/Hip(right/left)/Wrist (right/left): RT HIP When: 2019 Family History of Osteoporosis: YES Active: NO Diet low in dairy products/other sources of calcium: NO Postmenopausal woman: AROUND AGE 50 Take estrogen and/or progesterone medications: NONE Lost more than 2 inches in height since high school: NO Frequent falls: YES Poor Health: YES MEDICATIONS: Thyroid Medications: YES Which medication: LEVOTHYROXINE How Long: APPROX 8 YEARS Additional Medications: DRY MOUTH MEDS, LEVOTHYROXINE, BLOOD PRESSURE MEDS,XANAX, CALCIUM , VIT D Additional History: SHOGRENS DISEASE EXAM MEASUREMENTS: Bone mineral densitometry was performed using the [employer] System. Bone mineral density as measured about the Lumbar spine is: ----- L1-L4(G/cm2): 1.018 T Score Values are as follows: ----- L2: -2.3 ----- L3: -0.1 ----- L4: -1.2 ----- L1-L4: -1.4 Bone mineral density has: DECREASED -1.9 % since study of: 2017 Bone mineral density about the L hip (g/cm2): 0.875 T Score values are as follows: -----L Neck: -1.5 -----L Total: -1.1 Bone mineral density has: INCREASED 0.6 % since study of: 2017 IMPRESSION: Osteopenia (T Score between -2.5 and -1). There is slightly increased risk of fracture and the patient may be considered for treatment. Re-Screen 2-5 years. NOTE: T-SCORE=SD OF THE YOUNG ADULT MEAN.
--- NOTE | 2020-09-26 12:23 | MM ---
Reason for exam: screening (asymptomatic). Last mammogram was performed 1 year and 6 months ago. History: Patient is postmenopausal. Reduction of the left breast, 1991. Reduction of the right breast, 1991. Took estrogen for 4 years beginning at age 49. Took progesterone for 4 years beginning at age 49. Physical Findings: A clinical breast exam by your physician is recommended on an annual basis and results should be correlated with mammographic findings. MG 3D Screening Mammo W/Cad Bilateral CC and MLO view(s) were taken. Prior study comparison: March 17, 2019, bilateral MG screening mammo w CAD. January 26, 2018, bilateral MG screening mammo w CAD. There are scattered fibroglandular densities. There are benign appearing round calcifications bilaterally. There is no discrete abnormality. ASSESSMENT: Benign, BI-RAD 2 RECOMMENDATION: Routine screening mammogram of both breasts in 1 year.
== END | disposition home or self-care (01) ==
LOC: RADMAMWWP 11:45
PROVIDERS: ATTEND Obstetrics & Gynecology
DX: Z12.31 Encounter for screening mammogram for malignant neoplasm of breast (principal); M85.80 Other specified disorders of bone density and structure, unspecified site; Z78.0 Asymptomatic menopausal state
CPT/HCPCS: 77063; 77067; 77080

== ENCOUNTER → 2021-01-23 | Outpatient (CLI) | payer MEDICARE ==
[2021-01-23 15:44] VITALS: BP 147/77; PULSE 118; RESP 18; TEMP 98; BMI 40.1
--- NOTE | 2021-01-23 16:00 | P.HPBAR ---
Bariatric H&P - History & Physicial H&P Date: 01/23/21 History & Physicial: Visit/CC: initial visit Patient initial contact: Initial weight: 111.13 kg Initial weight in pounds: 245.00 Height: 5 ft 5.5 in Initial BMI: 40.1 Last weight: Current weight: 111.13 kg Current weight in pounds: 245.00 Current BMI: 40.1 [place] body weight (based on NIH guidelines): 57.833 kg Excess body weight loss: 0.0% The patient is a 65 year-old F who presents for Bariatric Assessment. She comes in with neuromusclar disorder Sjogrens. Recommend gastric bypass. EGD and labs. Highest weight is 245 to 250 pounds, goal is 100 pounds. Past Medical History Past Medical History: Fibromyalgia, GERD/Reflux, Hypertension, Musculoskeletal Disorder, Osteoarthritis (OA), Thyroid Disorder Additional Past Medical History / Comment(s): CHRONIC LOWER BACK PAIN, LUPUS, IBS, Sjogren's-dry painful mouth, recent stress test History of Any Multi-Drug Resistant Organisms: None Reported Past Surgical History: Bariatric Surgery, Bladder Surgery, Breast Surgery, Joint Replacement Additional Past Surgical History / Comment(s): LAP BAND, BLADDER SLING, TAI. BREAST REDUCTION, EYE LID SURGERY lap band removal 07-04-19; right hip replacement Nov 2019 Past Anesthesia/Blood Transfusion Reactions: Motion Sickness, No Reported Reaction Past Psychological History: Anxiety, Depression, Panic Disorder Additional Psychological History / Comment(s): PT'S SON JUST 2 WEEKS AGO- AUTOPSY RESULTS NOT BACK YET-PT TEARY AT TIMES Smoking Status: Never smoker Past Alcohol Use History: Rare Past Drug Use History: None Reported - Past Family History Mother Family Medical History: Diabetes Mellitus, Hypertension Additional Family Medical History / Comment(s): OBESITY, NEUROPATHY-EVENTALLY IN W/C -COULDN'T FEEL FEET. Father Family Medical History: No Reported History Additional Family Medical History / Comment(s): AGE 92-JUST DROVE UP FROM [place] FOR GRANDSON'S Surgical - Exam Vital Signs Temp Pulse Resp BP 98 F 118 H 18 147/77 01/23/21 15:38 01/23/21 15:38 01/23/21 15:38 01/23/21 15:38 Bariatric Checklist Checklist: Plan: Checklist: EGD: 1. Hiatal hernia: 2. H. Pylori: HgbA1c: Vitamin D: Smoking: Never smoker Primary care physician referral: jean paul vaca (PCP), Dr. Daley (Program Evaluator) Psychiatry clearance: Cardiology clearance: Sleep study: Diet journal: VTE risk score: VTE risk level: Rehab needs at discharge:
[2021-01-23 17:06] LABS: HCT 46.2 % (34.0-46.0); HGB 15.8 gm/dL (11.4-16.0); MCH 33.2 pg (25.0-35.0); MCHC 34.3 g/dL (31.0-37.0); MCV 96.9 fL (80.0-100.0); Mean Platelet Volume 6.9; Platelet Count 250 k/uL (150-450); RBC 4.77 m/uL (3.80-5.40); RDW 12.9 % (11.5-15.5); WBC 8.1 k/uL (3.8-10.6)
[2021-01-23 22:58] LABS: INR 0.96 (0.90-1.11); Partial Thromboplastin Time 29.6 sec (23.5-31.0); Prothrombin Time 10.5 sec (9.9-11.9)
[2021-01-24 03:32] LABS: Hemoglobin A1C 5.5 % (4.0-6.0)
[2021-01-24 11:41] LABS: Ferritin 93.8 ng/mL (10.0-291.0)
[2021-01-24 12:08] LABS: % Iron Saturation 27.64 (12.00-45.00); ALT 211 U/L (8-44); AST 130 U/L (13-35); African American GFR (CKD) 105.4 (60.0-200.0); Albumin/Globulin Ratio 1.81 (1.60-3.17); Alkaline Phosphatase 176 U/L (41-126); BUN/Creat Ratio 32.86 Ratio (12.00-20.00); Calcium 10.4 mg/dL (8.7-10.3); Carbon Dioxide 27.7 mmol/L (21.6-31.8); Chloride 99 mmol/L (96-109); Cholesterol 264 mg/dL (0-200); Folate, Serum >24.0 ng/mL; Globulin 2.6 g/dL (1.6-3.3); Glucose 104 mg/dL (70-110); Iron 97 ug/dL (50-170); Magnesium 1.7 mg/dL (1.5-2.4); Non-African American GFR(CKD) 90.9 (60.0-200.0); Phosphorus 3.3 mg/dL (2.4-5.1); Potassium 4.5 mmol/L (3.5-5.5); Sodium 139 mmol/L (135-145); Total Bilirubin 0.3 mg/dL (0.3-1.2); Total Iron Binding Capacity 351 ug/dL (228-460); Total Protein 7.3 g/dL (6.2-8.2)
[2021-01-24 13:34] LABS: Zinc, Serum 74 ug/dL (60-130)
[2021-01-25 06:57] LABS: Vitamin A 72 ug/dL (38-106)
[2021-01-25 07:12] LABS: Vit B1(Thiamine) 84 ug/L (38-122)
[2021-01-27 18:32] LABS: Selenium 146 mcg/L (63-160)
== END ==
LOC: BARWHC3 15:16
PROVIDERS: ATTEND Surgery Plastic and Reconstructive Surgery
DX: E66.01 Morbid (severe) obesity due to excess calories (principal); Z68.41 Body mass index [BMI] 40.0-44.9, adult; K21.9 Gastro-esophageal reflux disease without esophagitis; I10 Essential (primary) hypertension; M79.7 Fibromyalgia; D50.8 Other iron deficiency anemias
CPT/HCPCS: 84255; 84134; 84425; 80061; 80053; 82607; 82728; 82525; 82746; 83540; 83550; 83735; 84100; 84443; 84590; 84630; 85027; 85610; 85730; 83721; 82306; 83970; 83036; 36415; G0463; 99211

== ENCOUNTER → 2021-03-08 | Outpatient (CLI) | payer MEDICARE ==
--- NOTE | 2021-03-10 16:47 | US ---
EXAMINATION TYPE: US gallbladder DATE OF EXAM: 03/08/2021 COMPARISON: NONE CLINICAL HISTORY: 65-year-old female R94.5 Abnormal liver function test. TECHNIQUE: Multiple sonographic images of the right upper quadrant are obtained. FINDINGS: EXAM MEASUREMENTS: Liver Length: 20.8 cm Gallbladder Wall: 0.2 cm Right Kidney: 10.0 x 4.3 x 3.9 cm Pancreas: Only portions of the pancreatic neck and body are visualized. Remainder is obscured by sha dowing from bowel gas. Liver: Enlarged and markedly echogenic with far field attenuation. The secondary and limits assessmen t for focal lesions. Gallbladder: wnl Evidence for sonographic Fountain's sign: neg CBD: Obscured by overlying bowel gas, unable to visualize Right Kidney: No hydronephrosis. IMPRESSION: 1. Hepatomegaly (20.8 cm) with severe hepatic steatosis. This secondarily limits assessment for focal lesions on ultrasound. 2. No gallstones. The bile duct is obscured and could not be assessed on this exam.
== END | disposition home or self-care (01) ==
LOC: RADUSWWP 09:34
PROVIDERS: ATTEND Surgery Plastic and Reconstructive Surgery
DX: R16.0 Hepatomegaly, not elsewhere classified (principal); K76.0 Fatty (change of) liver, not elsewhere classified
CPT/HCPCS: 76705

== ENCOUNTER → 2022-06-05 | Outpatient (CLI) | payer MEDICARE ==
--- NOTE | 2022-06-05 16:00 | XR ---
EXAMINATION TYPE: XR chest 2V DATE OF EXAM: 06/05/2022 COMPARISON: NONE TECHNIQUE: PA and lateral views submitted. HISTORY: Shortness of breath FINDINGS: The lungs are clear and there is no pneumothorax, pleural effusion, or focal pneumonia. Arthropathy of the shoulders. Coarsened interstitium. Heart size normal. No overt failure. Degenerative change o f the spine. IMPRESSION: 1. No acute process. Correlate for chronic interstitial lung disease.
[2022-06-06 01:10] LABS: HCT 44.8 % (37.2-46.3); HGB 14.8 g/dL (12.0-15.0); MCH 30.9 pg (27.0-32.0); MCV 93.5 fL (80.0-97.0); Mean Platelet Volume 10.3 fL (9.5-12.2); NRBC Per 100 WBC 0 /100 WBCS (0.0-0.0); Platelet Count 278 X 10*3/uL (140-440); RBC 4.79 X 10*6/uL (4.10-5.20); RDW 13.2 % (11.5-14.5); WBC 9.62 X 10*3/uL (4.50-10.00)
[2022-06-06 03:13] LABS: African American GFR (CKD) 77.2 (60.0-200.0); Anion Gap 15.2 mmol/L (10.00-18.00); BUN/Creat Ratio 21.67 Ratio (12.00-20.00); Blood Urea Nitrogen 19.5 mg/dL (9.0-27.0); Calcium 9.8 mg/dL (8.7-10.3); Carbon Dioxide 25.8 mmol/L (20.0-27.5); Non-African American GFR(CKD) 66.6 (60.0-200.0); Potassium 3.8 mmol/L (3.5-5.5)
== END | disposition home or self-care (01) ==
LOC: LABWHC1 14:55
PROVIDERS: ATTEND Nurse Practitioner Family
DX: R06.02 Shortness of breath (principal)
CPT/HCPCS: 36415; 71046; 80048; 83880; 84443; 85027

== ENCOUNTER → 2022-09-29 | Outpatient (CLI) | payer MEDICARE ==
--- NOTE | 2022-09-29 16:17 | BD ---
EXAMINATION TYPE: Axial Bone Density DATE OF EXAM: 09/29/2022 COMPARISON: NONE CLINICAL HISTORY: 67 years year old Female. ICD-10 CODE: M85.88 OTH DISRD OF BONE DENSITY AND STRUCT URE, OT Height: 239 Weight: 64.75 FRAX RISK QUESTIONS: Family History (Parent hip fracture): NO History of Fracture in Adulthood: YES Secondary Osteoporosis: 1. Type 1 Diabetes: NO 2. Hyperthyroidism: NO 3. Menopause before 45: NO 4. Malnutrition: NO 5. Chronic liver disease: FATTY LIVER DISEASE Rheumatoid Arthritis: NO Current Tobacco Use: NO RISK FACTORS HISTORY OF: Surgery to Hip right: YES When: 2019 Family History of Osteoporosis: YES Active: NO Diet low in dairy products/other sources of calcium: YES Postmenopausal woman: YES 50 Lost more than 2 inches in height since high school: NO Poor Health: YES PER PATIENT MEDICATIONS: Thyroid Medications: YES Which medication: Levothyroxine How Lon YEARS Additional Medications: YES LEVOTHYROXINE, HBP,XANAX CALCIUM, VIT D Additional History: PATIENT HAS SHOGREN DISEASE EXAM MEASUREMENTS: Bone mineral densitometry was performed using the [employer] System. Bone mineral density as measured about the Lumbar spine is: ----- L1-L4(G/cm2): 1.101 T Score Values are as follows: ----- L1: -1.5 ----- L2: -0.6 ----- L3: -0.2 ----- L4: -.0.5 ----- L1-L4: -0.7 Bone mineral density has: Increased 8.7% since study of: 09/25/2020 Bone mineral density about the L hip (g/cm2): 0.908 T Score values are as follows: -----L Neck: -1.6 -----L Total: -0.8 Bone mineral density has: Increased 3.8% since study of: 09/25/2020 FRAX%s: The graph provided illustrates a 13.9% chance for a major osteoporotic fx and a 1.6% chance f or the hips probability for fx in 10 years time. IMPRESSION: Osteopenia (T Score between -2.5 and -1). There is slightly increased risk of fracture and the patient may be considered for treatment. Re-Screen 2-5 years. NOTE: T-SCORE=SD OF THE YOUNG ADULT MEAN.
== END | disposition home or self-care (01) ==
LOC: RADBDWWP 13:22
PROVIDERS: ATTEND Obstetrics & Gynecology
DX: M85.89 Other specified disorders of bone density and structure, multiple sites (principal)
CPT/HCPCS: 77080

== ENCOUNTER → 2022-10-24 | Outpatient (CLI) | payer MEDICARE ==
--- NOTE | 2022-10-24 15:12 | US ---
EXAMINATION TYPE: US pelvis complete transvag DATE OF EXAM: 10/24/2022 COMPARISON: 12/11/2010 CLINICAL HISTORY: N95.0 POSTMENOPAUSAL BLEEDING, R10.2 PELVIC PAIN. Pt states episode of heavy vagina l bleeding that has recently lightened up, pt not on HRT's TECHNIQUE: Transvaginal (TV) and Transabdominal (TA) . Transabdominal sonographic images of the pel vis were acquired. Transvaginal sonographic images were medically necessary to better assess the fol lowing anatomy: Entire pelvis Date of LMP: Pt states age 50 EXAM MEASUREMENTS: Uterus: 7.9 x 5.2 x 4.8 cm Endometrial Stripe: 3.6 cm Right Ovary: 2.3 x 1.4 x 1.8 cm 1. Uterus: Retroverted wnl 2. Endometrium: Abnormally markedly thickened and heterogeneous 3. Right Ovary: wnl 4. Left Ovary: Obscured by overlying bowel gas 5. Bilateral Adnexa: wnl 6. Posterior cul-de-sac: wnl IMPRESSION: 1. Abnormal thickening of the endometrium. Endometrial neoplasm is not excluded. Additional workup is recommended. If additional imaging is required, consider MRI.
== END | disposition home or self-care (01) ==
LOC: RADUSWWP 13:21
PROVIDERS: ATTEND Obstetrics & Gynecology
DX: N95.0 Postmenopausal bleeding (principal); R10.2 Pelvic and perineal pain; R93.89 Abnormal findings on diagnostic imaging of other specified body structures
CPT/HCPCS: 76830; 76856

== ENCOUNTER → 2022-12-03 | Outpatient (CLI) | payer MEDICARE ==
[2022-12-03 23:46] LABS: Basophils # (A) 0.02 X 10*3/uL (0.00-0.10); Basophils % (A) 0.2 %; Eosinophils # (A) 0 X 10*3/uL (0.04-0.35); Eosinophils % (A) 0 %; HCT 47.1 % (37.2-46.3); HGB 15.3 g/dL (12.0-15.0); Immature Grans, Automated 0.3 %; Lymphocytes # (A) 2.26 X 10*3/uL (0.90-5.00); Lymphocytes % (A) 24.5 %; MCH 31.5 pg (27.0-32.0); MCHC 32.5 g/dL (32.0-37.0); MCV 97.1 fL (80.0-97.0); Mean Platelet Volume 10.3 fL (9.5-12.2); Monocytes # (A) 0.74 X 10*3/uL (0.20-1.00); NRBC Per 100 WBC 0 /100 WBCS (0.0-0.0); Neutrophils # (A) 6.16 X 10*3/uL (1.80-7.70); Platelet Count 327 X 10*3/uL (140-440); RBC 4.85 X 10*6/uL (4.10-5.20); RDW 13.7 % (11.5-14.5); WBC 9.21 X 10*3/uL (4.50-10.00)
== END | disposition home or self-care (01) ==
LOC: LABPAT 15:07
PROVIDERS: ATTEND Obstetrics & Gynecology
DX: Z01.812 Encounter for preprocedural laboratory examination (principal)
CPT/HCPCS: 85025

== ENCOUNTER 2022-12-09 11:20 | Day surgery (SDC) | payer MEDICARE ==
--- NOTE | 2022-12-08 21:25 | P.HPOB ---
History of Present Illness H&P Date: 12/08/22 Chief Complaint: Postmenopausal bleeding, endometrial thickening This is a 67-year-old female 4 para 3 who presents for dilation and curettage with hysteroscopy secondary to postmenopausal bleeding. She stated she had severe cramping that started on 10/21/2022. She woke up in the morning and her entire pad that she wears her bladder control was soaked with blood is then turned to light pink and lasted for approximately 4 days. Her pelvic ultrasound showed uterus measuring 7.9 x 5.2 x 4.8 cm with an endometrial thickness of 3.6 cm. Left ovary was not visualized and right ovary appeared normal. She did get cardiac clearance from Dr. Iraheta. Obstetrical history: . History of 3 vaginal deliveries and 1 miscarriage. Gynecologic history: No history of sexually transmitted diseases. She is not currently sexually active. Social history: She is single. She is retired and on disability. Review of Systems Constitutional: Denies chills, Denies fever Ears, nose, mouth and throat: Denies headache, Denies sore throat Cardiovascular: Denies chest pain, Denies shortness of breath Respiratory: Denies cough Gastrointestinal: Reports constipation, Reports diarrhea Genitourinary: Reports stress incontinence, Reports urge incontinence, Reports urgency, Reports urinary frequency Menstruation: Reports postmenopausal Musculoskeletal: Reports low back pain, Reports myalgias Integumentary: Denies pruritus, Denies rash Neurological: Denies numbness, Denies weakness Psychiatric: Reports anxiety, Reports depression, Reports insomnia Hematologic/Lymphatic: Reports easy bruising Past Medical History Past Medical History: Fibromyalgia, Hypertension, Musculoskeletal Disorder, Osteoarthritis (OA), Thyroid Disorder Additional Past Medical History / Comment(s): CHRONIC LOWER BACK PAIN, ?LUPUS, IBS, Sjogren's, fatty liver, SOB w/exertion-thinks is due to weight gain from no lap band anymore History of Any Multi-Drug Resistant Organisms: None Reported Past Surgical History: Bariatric Surgery, Bladder Surgery, Breast Surgery, Joint Replacement Additional Past Surgical History / Comment(s): LAP BAND, BLADDER SLING, TAI. BREAST REDUCTION, tai blepharoplasty, lap band removal 07-04-19; right hip replacement Nov 2019 Past Anesthesia/Blood Transfusion Reactions: Motion Sickness, No Reported Reaction Past Psychological History: Anxiety, Depression Smoking Status: Never smoker Past Alcohol Use History: None Reported Past Drug Use History: None Reported - Past Family History Mother Family Medical History: Diabetes Mellitus, Hypertension Additional Family Medical History / Comment(s): OBESITY, NEUROPATHY-EVENTALLY IN W/C -COULDN'T FEEL FEET. Father Family Medical History: No Reported History Additional Family Medical History / Comment(s): AGE 92-JUST DROVE UP FROM [place] FOR GRANDSON'S Medications and Allergies Home Medications Medication Instructions Recorded Confirmed Type ALPRAZolam [Xanax] 1 mg PO QAM 01/01/16 12/04/22 History Levothyroxine Sodium [Synthroid] 112 mcg PO QAM 01/01/16 12/04/22 History Lisinopril-Hctz 20-25 mg 1 tab PO QAM 01/01/16 12/04/22 History [Zestoretic 20-25] Multivitamins, Thera [Multivitamin 1 tab PO DAILY 01/01/16 12/04/22 History (formulary)] Desvenlafaxine Succinate [Pristiq] 100 mg PO QAM 03/23/19 12/04/22 History Calcium Carbonate [Calcium] 1,200 mg PO DAILY 12/06/19 12/04/22 History Cyanocobalamin (Vitamin B-12) 2,500 mcg PO DAILY 01/23/21 12/04/22 History [Vitamin B-12] ALPRAZolam [Xanax] 0.5 mg PO HS 12/04/22 12/04/22 History Aspirin 81 mg PO DAILY 12/04/22 12/04/22 History Atorvastatin [Lipitor] 40 mg PO HS 12/04/22 12/04/22 History Cholecalciferol [Vitamin D3 (25 50 mcg PO DAILY 12/04/22 12/04/22 History Mcg = 1000 Iu)] Ibuprofen [Motrin] 400 mg PO Q6HR PRN 12/04/22 12/04/22 History Allergies Allergy/AdvReac Type Severity Reaction Status Date / Time codeine AdvReac Unknown Headache Verified 12/04/22 12:16 hydrocodone [From [place]] AdvReac Unknown FELT Verified 12/04/22 12:16 SPACEY, NO CONTROL- DOES NOT WANT. Exam Osteopathic Statement: *. No significant issues noted on an osteopathic structural exam other than those noted in the History and Physical/Consult. HEENT: Within normal limits Heart: Regular rate and rhythm Lungs: Clear to auscultation bilaterally Abdomen: Soft, nontender Pelvic exam: Uterus is small, anteverted, with no adnexal masses or tenderness noted. She does have a second degree rectocele noted. Extremities: Negative Homans Assessment and Plan (1) Postmenopausal bleeding Status: Acute Code(s): N95.0 - POSTMENOPAUSAL BLEEDING SNOMED Code(s): 88111632 Plan: Proceed with dilation and curettage with hysteroscopy. I have discussed the risks, benefits, and alternative therapies for the above- mentioned procedure and for both sedation/anesthesia as well as necessary blood products administration, if indicated, as they pertain to this patient. The patient has indicated her understanding and acceptance of the risks and procedures discussed.
[~2022-12-09 11:20] MED LIST changes: -ACETAMINOPHEN TAB 325 MG TAB ONE; -ACETAMINOPHEN TAB 500 MG TAB PO ONE; +DEXAMETHASONE SOD PHOSPHATE 4 MG/ML 1 ML VIAL IV ONE; -DIAZEPAM 5 MG TAB PO PRN; -GABAPENTIN 300 MG CAP PO ONE; -HYDROmorphone 1 MG/ML 1 ML SYRINGE IVP PRN; +LACTATED RINGERS 1,000 ML IV SCH; +LIDOCAINE 1% (10MG/ML) FOR IV START INTRADERMA PRN; -LIDOCAINE 1% 20 ML VIAL (10MG/ML) FOR IV START INTRADERMA PRN; -MAGNESIUM HYDROXIDE 2,400 MG/10 ML CUP PO PRN; -MELOXICAM 7.5 MG TAB PO ONE; +MIDAZOLAM 2 MG/2 ML VIAL IV PRN; -NALOXONE 0.4 MG/ML 1 ML VIAL IV PRN; -ONDANSETRON 4 MG/2 ML VIAL IVP PRN; +Pre Op ABX Message 1 EACH MISC MISCELLANE ONE; -ROPIVACAINE 246.25 MG, EPINEPHrine 0.5 MG, KETOROLAC 30 MG, cloNIDine HCL/PF 80 MCG, WA... MISCELLANE ONE; -TRANEXAMIC ACID 1,000 MG in SODIUM CHLORIDE 0.9% 100 ML IVPB ONE; -fentaNYL (PF) 50 MCG/ML 2 ML AMP IV PRN
[2022-12-09] MEDS ORDERED: MIDAZOLAM 2 MG/2 ML VIAL ONE (12:18)
[2022-12-09] MEDS ORDERED: fentaNYL (PF) 50 MCG/ML 2 ML AMP ONE (12:18)
[2022-12-09] MEDS ORDERED: KETOROLAC 15 MG/ML 1 ML VIAL ONE (12:18)
[2022-12-09] MEDS ORDERED: PROPOFOL 10 MG/ML 20 ML VIAL IV ONE (12:18)
[2022-12-09] MEDS ORDERED: LIDOCAINE 2% INJ 20 MG/ML (2 ML VIAL) ONE (12:18)
--- NOTE | 2022-12-09 12:58 | P.OP ---
Date of Procedure: 12/09/22 Preoperative Diagnosis: Postmenopausal bleeding Endometrial thickening on ultrasound Postoperative Diagnosis: Same + endometrial polyp Procedure(s) Performed: Dilation and curettage with hysteroscopy Anesthesia: DRAKE Surgeon: Charley Brown Estimated Blood Loss (ml): 5 Pathology: other ([employer] curettings) Condition: stable Disposition: same day Indications for Procedure: This is a 67-year-old female 4 para 3 who presents for dilation and curettage with hysteroscopy secondary to postmenopausal bleeding. She stated she had severe cramping that started on 10/21/2022. She woke up in the morning and her entire pad that she wears her bladder control was soaked with blood is then turned to light pink and lasted for approximately 4 days. Her pelvic ultrasound showed uterus measuring 7.9 x 5.2 x 4.8 cm with an endometrial thickness of 3.6 cm. Left ovary was not visualized and right ovary appeared normal. She did get cardiac clearance from Dr. Iraheta. Operative Findings: Uterus is bulky and retroverted, sounded to 11 cm. Upon hysteroscopy, background endometrium appears very thin however there is a very large endometrial polyp occupying most of the endometrial cavity. The right tubal ostia is visualized and the left tubal ostia is obscured. Description of Procedure: The patient is taken to the operating room where she is placed in the dorsal lithotomy position. She is prepped and draped in the normal sterile fashion. Her bladder is drained with a catheter and then removed. Examination is performed under anesthesia. Uterus is found to be bulky, mid to retroverted position, with no adnexal masses palpated. Next a weighted speculum was placed in the patient's vagina and a right angle retractor is used to visualize the anterior lip of the cervix. The anterior lip of the cervix is grasped with an Allis clamp. Next the uterus is sounded to 11 cm. Cervix is gently dilated with Russell dilators until a hysteroscope could be passed. Hysteroscopy is performed using normal saline. The above-noted findings were made and pictures are taken. Hysteroscope was withdrawn and then cervix is gently dilated further. Next I a polyp forceps was introduced with a large amount of polypoid type tissue obtained. Next a medium-size sharp curet was introduced and sharp curettage was performed until a gritty texture was noted. Minimal further tissue was obtained. Next the specimen is removed from the field. Allis clamp was removed from the anterior lip of the cervix. No active bleeding is noted. All instruments are removed from the vagina. All sponge and needle counts are correct. The patient is then taken to recovery room in stable condition.
[2022-12-09 13:08] VITALS: TEMP 97.2
[2022-12-09 15:02] VITALS: BP 115/70; PULSE 72; RESP 15
== END 2022-12-09 15:00 | disposition home or self-care (01) ==
LOC: OR 11:20
PROVIDERS: ATTEND Obstetrics & Gynecology
DX: N84.0 Polyp of corpus uteri (principal); R93.89 Abnormal findings on diagnostic imaging of other specified body structures; M79.7 Fibromyalgia; I10 Essential (primary) hypertension; M19.90 Unspecified osteoarthritis, unspecified site; E07.9 Disorder of thyroid, unspecified; G89.29 Other chronic pain; K58.9 Irritable bowel syndrome, unspecified; M35.00 Sjogren syndrome, unspecified; K76.0 Fatty (change of) liver, not elsewhere classified; F41.8 Other specified anxiety disorders; Z98.84 Bariatric surgery status; Z98.82 Breast implant status; Z98.890 Other specified postprocedural states; Z82.49 Family history of ischemic heart disease and other diseases of the circulatory system; Z83.3 Family history of diabetes mellitus; Z83.49 Family history of other endocrine, nutritional and metabolic diseases; Z79.1 Long term (current) use of non-steroidal anti-inflammatories (NSAID); Z79.899 Other long term (current) drug therapy; Z79.890 Hormone replacement therapy; Z79.82 Long term (current) use of aspirin; Z88.5 Allergy status to narcotic agent
CPT/HCPCS: 58558; J2250; J1100; J2405; J3010; J1885; J2704; J2001; 88305

== ENCOUNTER → 2023-02-13 | Outpatient (CLI) | payer MEDICARE ==
[2023-02-13 18:42] LABS: HCT 44.6 % (37.2-46.3); HGB 14.9 g/dL (12.0-15.0); MCH 31.7 pg (27.0-32.0); MCHC 33.4 g/dL (32.0-37.0); MCV 94.9 fL (80.0-97.0); NRBC Per 100 WBC 0 /100 WBCS (0.0-0.0); Platelet Count 286 X 10*3/uL (140-440); RDW 13.3 % (11.5-14.5); WBC 8.19 X 10*3/uL (4.50-10.00)
[2023-02-13 19:01] LABS: ALT 62 U/L (8-44); AST 48 U/L (13-35); African American GFR (CKD) 104.5 (60.0-200.0); Albumin 4.5 g/dL (3.8-4.9); Albumin/Globulin Ratio 1.63 (1.60-3.17); Alkaline Phosphatase 101 U/L (41-126); BUN/Creat Ratio 21.08 Ratio (12.00-20.00); Blood Urea Nitrogen 14.5 mg/dL (9.0-27.0); Chloride 98 mmol/L (96-109); Chol/HDL Ratio 3.48 Ratio; Globulin 2.8 g/dL (1.6-3.3); Glucose 87 mg/dL (70-110); LDL Cholesterol,Calculated 87.6 mg/dL (0.0-131.0); Non-African American GFR(CKD) 90.2 (60.0-200.0); Potassium 4.5 mmol/L (3.5-5.5); Sodium 140 mmol/L (135-145); Total Protein 7.2 g/dL (6.2-8.2)
== END | disposition home or self-care (01) ==
LOC: LABWHC1 13:40
PROVIDERS: ATTEND Family Medicine
DX: Z00.01 Encounter for general adult medical examination with abnormal findings (principal); E03.9 Hypothyroidism, unspecified; E66.3 Overweight; R53.83 Other fatigue
CPT/HCPCS: 36415; 80053; 80061; 84439; 84443; 84481; 85027

== ENCOUNTER → 2023-06-25 | Outpatient (CLI) | payer MEDICARE ==
--- NOTE | 2023-06-25 12:41 | FL ---
EXAMINATION TYPE: FL barium swallow DATE OF EXAM: 06/25/2023 CLINICAL INDICATION: 67-year-old female R13.10, dysphagia COMPARISON: None Total Fluoroscopy Time: 3 minutes 2 seconds DOSE AREA PRODUCT (DAP) UGY*M,MGY*CM: 702.46 68 images obtained. FINDINGS: The swallowing mechanism is normal . Mild anterior spondylosis C5-C6 and C6-C7 causing mild impressio ns onto the back wall of the cervical esophagus. In addition, there is [id number] hypertrophy o f the cricopharyngeus muscle mildly narrowing the passage of the cervical esophagus. The thoracic portion has a normal course and caliber. The graft mild esophageal dysmotility is presen t characterized by blunted secondary stripping waves resulting in prolonged pooling of contrast in th e esophagus when the patient is prone or supine. The mucosa is normal and no persistent filling defect is encountered. There is a small to moderate-sized sliding hernia. Valsalva and positional maneuvers resulted back fi lling of contrast into the hernia but no gastroesophageal reflux during the course of the exam. IMPRESSION: 1. Mild to moderate CP muscle hypertrophy very mildly narrows the cervical esophageal passage. Otherw ise, no stricture or obstruction. 2. Mild esophageal dysmotility. 3. Small to moderate-sized sliding hiatal hernia. Valsalva and positional maneuvers resulted in backf illing of contrast into the hernia. Gastroesophageal reflux not visualized during the course of the e xam.
== END | disposition home or self-care (01) ==
LOC: RADUSWWP 09:36
PROVIDERS: ATTEND Surgery Plastic and Reconstructive Surgery
DX: K22.4 Dyskinesia of esophagus (principal); K44.9 Diaphragmatic hernia without obstruction or gangrene; R13.10 Dysphagia, unspecified; R07.9 Chest pain, unspecified
CPT/HCPCS: 74220

== ENCOUNTER 2023-07-13 08:10 | Day surgery (SDC) | payer MEDICARE ==
[2023-07-08 11:03] VITALS: BMI 40.4
[~2023-07-13 08:10] MED LIST changes: -Pre Op ABX Message 1 EACH MISC MISCELLANE ONE
[2023-07-13 08:44] VITALS: RESP 16; TEMP 96.8
[2023-07-13] MEDS ORDERED: LIDOCAINE 2% INJ 20 MG/ML (2 ML VIAL) ONE (08:51)
[2023-07-13] MEDS ORDERED: PROPOFOL 10 MG/ML 20 ML VIAL IV ONE (08:51)
--- NOTE | 2023-07-13 09:09 | P.GSHP ---
History of Present Illness H&P Date: 07/13/23 CHIEF COMPLAINT: GERD HISTORY OF PRESENT ILLNESS: The patient is a 67-year-old female who presents reports gastroesophageal reflux disease. Upper endoscopy was offered for further evaluation and management. PAST MEDICAL HISTORY: Please see list. PAST SURGICAL HISTORY: Please see list. MEDICATIONS: Please see list. ALLERGIES: Please see list. SOCIAL HISTORY: No illicit drug use FAMILY HISTORY: No reports of Crohn disease or ulcerative colitis. REVIEW OF ORGAN SYSTEMS: CONSTITUTIONAL: No reports of fevers or chills. GI: Denies any blood in stools or constipation. PHYSICAL EXAM: VITAL SIGNS: Stable GENERAL: Well-developed and pleasant in no acute distress. HEENT: No scleral icterus. Extraocular movements grossly intact. Moist buccal mucosa. NECK: Supple without lymphadenopathy. CHEST: Unlabored respirations. Equal bilateral excursions. CARDIOVASCULAR: Regular rate and rhythm. Distal 2+ pulses. ABDOMEN: Soft, nondistended. MUSCULOSKELETAL: No clubbing, cyanosis, or edema. ASSESSMENT: 1. Gastroesophageal reflux disease PLAN: 1. Recommend proceeding with an upper endoscopy Past Medical History Past Medical History: Fibromyalgia, GERD/Reflux, Hypertension, Musculoskeletal Disorder, Osteoarthritis (OA), Thyroid Disorder Additional Past Medical History / Comment(s): "SOB from lack of activity and gaining weight, checked out by [employer] - everything ok". CHRONIC LOWER BACK PAIN, problems with discs in back and neck. IBS. Sjogren's-dry painful mouth. History of Any Multi-Drug Resistant Organisms: None Reported Past Surgical History: Bariatric Surgery, Bladder Surgery, Breast Surgery, Heart Catheterization, Joint Replacement, Tonsillectomy Additional Past Surgical History / Comment(s): LAP BAND, BLADDER SLING, BILATERAL BREAST REDUCTION, EYE LID SURGERY, lap band removal 07-04-19, right hip replacement. Past Anesthesia/Blood Transfusion Reactions: Motion Sickness, No Reported Reaction Past Psychological History: Anxiety, Depression, Panic Disorder Smoking Status: Never smoker Past Alcohol Use History: None Reported Past Drug Use History: None Reported - Past Family History Mother Family Medical History: Diabetes Mellitus, Hypertension Additional Family Medical History / Comment(s): OBESITY, NEUROPATHY-EVENTALLY IN W/C -COULDN'T FEEL FEET. Father Family Medical History: No Reported History Additional Family Medical History / Comment(s): AGE 92-JUST DROVE UP FROM [place] FOR GRANDSON'S Medications and Allergies Home Medications Medication Instructions Recorded Confirmed Type Levothyroxine Sodium [Synthroid] 112 mcg PO QAM 01/01/16 07/08/23 History Lisinopril-Hctz 20-25 mg 1 tab PO QAM 01/01/16 07/08/23 History [Zestoretic 20-25] Multivitamins, Thera [Multivitamin 1 tab PO DAILY 01/01/16 07/08/23 History (formulary)] Desvenlafaxine Succinate [Pristiq] 100 mg PO QAM 03/23/19 07/08/23 History Calcium Carbonate [Calcium] 1,200 mg PO DAILY 12/06/19 07/08/23 History Cyanocobalamin (Vitamin B-12) 1,000 mcg PO DAILY 01/23/21 07/08/23 History [Vitamin B-12] ALPRAZolam [Xanax] 0.5 mg PO HS 12/04/22 07/08/23 History Aspirin 81 mg PO DAILY 12/04/22 07/08/23 History Atorvastatin [Lipitor] 40 mg PO QAM 12/04/22 07/08/23 History Cholecalciferol [Vitamin D3 (25 125 mcg PO DAILY 12/04/22 07/08/23 History Mcg = 1000 Iu)] Allergies Allergy/AdvReac Type Severity Reaction Status Date / Time codeine AdvReac Unknown Headache Verified 07/13/23 08:38 hydrocodone [From [place]] AdvReac Unknown FELT Verified 07/13/23 08:38 SPACEY, NO CONTROL- DOES NOT WANT. Surgical - Exam Vital Signs Temp Pulse Resp BP Pulse Ox 96.8 F L 92 16 160/76 98 07/13/23 08:43 07/13/23 08:43 07/13/23 08:43 07/13/23 08:43 07/13/23 08:43
--- NOTE | 2023-07-13 09:13 | P.PCN ---
Date of Procedure: 07/13/23 Description of Procedure: PREOPERATIVE DIAGNOSIS: Gastroesophageal reflux disease. Morbid obesity. Dysphagia POSTOPERATIVE DIAGNOSIS: Gastroesophageal reflux disease. Morbid obesity. Gastritis. Diaphragmatic hiatal hernia Gastric ulcer OPERATION: Esophagogastroduodenoscopy with biopsies along antrum and duodenum SURGEON: Shaina Lima MD ANESTHESIA: MAC. INDICATIONS: The patient is a 67-year-old female who presents with reflux disease. Benefits and risks of the procedure were described. Informed consent was obtained. DESCRIPTION: The patient was brought into the endoscopy suite and laid in the left lateral decubitus position. An Olympus gastroscope was passed along the posterior oropharynx down to the distal esophagus where the squamocolumnar junction was encountered at 38 cm from the incisors. The stomach was entered and no bile reflux was found. Additional findings are listed below. Biopsies with cold forceps were obtained of the antrum. The first through third portion of the duodenum was examined. Retroflexion of the scope confirmed Hill grade 2 lower esophageal valve. The squamocolumnar junction demonstrated LA grade B erosive esophagitis. The stomach was desufflated. The patient tolerated the procedure well. FINDINGS: Squamocolumnar junction 38 cm from the incisors. Diaphragmatic hiatus at 40 cm. Hiatal hernia, 2 cm Hill grade 2 lower esophageal valve. LA grade B erosive esophagitis. Biopsies obtained of the duodenum. Chronic gastritis with biopsies obtained. RECOMMENDATIONS: Upper endoscopy as needed. Plan - Discharge Summary Discharge Rx Participant: No New Discharge Prescriptions: Continue Multivitamins, Thera [Multivitamin (formulary)] 1 tab PO DAILY Lisinopril-Hctz 20-25 mg [Zestoretic 20-25] 1 tab PO QAM Levothyroxine Sodium [Synthroid] 112 mcg PO QAM Desvenlafaxine Succinate [Pristiq] 100 mg PO QAM Calcium Carbonate [Calcium] 1,200 mg PO DAILY Cyanocobalamin (Vitamin B-12) [Vitamin B-12] 1,000 mcg PO DAILY ALPRAZolam [Xanax] 0.5 mg PO HS Aspirin 81 mg PO DAILY Atorvastatin [Lipitor] 40 mg PO QAM Cholecalciferol [Vitamin D3 (25 Mcg = 1000 Iu)] 125 mcg PO DAILY Discharge Medication List Levothyroxine Sodium [Synthroid] 112 mcg PO QAM 01/01/16 [History] Lisinopril-Hctz 20-25 mg [Zestoretic 20-25] 1 tab PO QAM 01/01/16 [History] Multivitamins, Thera [Multivitamin (formulary)] 1 tab PO DAILY 01/01/16 [History] Desvenlafaxine Succinate [Pristiq] 100 mg PO QAM 03/23/19 [History] Calcium Carbonate [Calcium] 1,200 mg PO DAILY 12/06/19 [History] Cyanocobalamin (Vitamin B-12) [Vitamin B-12] 1,000 mcg PO DAILY 01/23/21 [Hi story] ALPRAZolam [Xanax] 0.5 mg PO HS 12/04/22 [History] Aspirin 81 mg PO DAILY 12/04/22 [History] Atorvastatin [Lipitor] 40 mg PO QAM 12/04/22 [History] Cholecalciferol [Vitamin D3 (25 Mcg = 1000 Iu)] 125 mcg PO DAILY 12/04/22 [History] [facility] [place] [facility] Patient Instructions/Handouts: Hiatal Hernia (DC) Discharge Disposition: HOME SELF-CARE
[2023-07-13 09:48] VITALS: BP 118/66; PULSE 88
== END 2023-07-13 09:53 | disposition home or self-care (01) ==
LOC: ORWHC2ENDO 08:10
PROVIDERS: ATTEND Surgery Plastic and Reconstructive Surgery
DX: K29.50 Unspecified chronic gastritis without bleeding (principal); K21.00 Gastro-esophageal reflux disease with esophagitis, without bleeding; E66.01 Morbid (severe) obesity due to excess calories; K25.9 Gastric ulcer, unspecified as acute or chronic, without hemorrhage or perforation; I10 Essential (primary) hypertension; M35.00 Sjogren syndrome, unspecified; K44.9 Diaphragmatic hernia without obstruction or gangrene; M19.90 Unspecified osteoarthritis, unspecified site; Z79.82 Long term (current) use of aspirin; Z98.890 Other specified postprocedural states; Z96.641 Presence of right artificial hip joint; Z83.49 Family history of other endocrine, nutritional and metabolic diseases; Z83.3 Family history of diabetes mellitus; Z79.899 Other long term (current) drug therapy; Z79.890 Hormone replacement therapy; Z68.28 Body mass index [BMI] 28.0-28.9, adult
CPT/HCPCS: 43239; J2704; J2001; 88305; 88342

== ENCOUNTER → 2023-07-22 | Outpatient (CLI) | payer MEDICARE ==
[2023-07-22 14:59] VITALS: BP 116/74; PULSE 103; TEMP 98.2; BMI 40.4
--- NOTE | 2023-07-22 15:28 | P.BASOAP ---
Subjective Progress Note Date: 07/22/23 She has irritable bowel. She burps alot. She has tickle. Has haital hernia. REcomend bypass due to complications from the band. Swallow study reviewed. She has ulcer. Carafate presctibed. She requires Medicare rules. SHe is on psych meds. She got her Cradiologist Dr Iraheta. Objective - Vital Signs Vital signs: Vital Signs Temp 98.2 F 07/22/23 14:53 Pulse 103 H 07/22/23 14:53 Resp BP 116/74 07/22/23 14:53 Pulse Ox FiO2 Intake & Output 07/21/23 07/22/23 07/22/23 18:59 06:59 18:59 Weight 111.765 kg Assessment/Plan Plan: Date: 07/22/23 Initial Weight: 111.13 kg Initial BMI: 40.1 Current Weight: 111.765 kg Current BMI: 40.4 Type of Surgery: Total Volume in Band: 0 Previous Volume: Volume Removed: Volume Added: Band Size:
== END ==
LOC: BARWHC3 14:50
PROVIDERS: ATTEND Surgery Plastic and Reconstructive Surgery
DX: Z53.9 Procedure and treatment not carried out, unspecified reason (principal)
CPT/HCPCS: 99211

== ENCOUNTER → 2023-09-08 | Outpatient (CLI) | payer MEDICARE ==
--- NOTE | 2023-09-10 08:30 | MM ---
Reason for Exam: Screening (asymptomatic). Last mammogram was performed 1 year(s) and 6 month(s) ago. Patient History: Menarche at age 12. First Full-Term at age 20. Postmenopausal. Patient has history of breast feeding. Estrogen for 4 years from age 49 until age 53. Progesterone for 4 years from age 49 until age 53. 1991, Reduction on the Right side. 1991, Reduction on the Left side. Risk Values: Jaclyn 5 year model risk: 1.5%. NCI Lifetime model risk: 5.2%. Prior Study Comparison: 03/17/2019 Bilateral Screening Mammogram, [facility]. 09/25/2020 Bilateral Screening Mammogram, [facility]. 02/26/2022 Bilateral Screening Mammogram, [facility]. Tissue Density: The breast tissue is almost entirely fat. Findings: Analyzed By CAD. There is no suspicious group of microcalcifications or new suspicious mass. Overall Assessment: Negative, BI-RAD 1 Management: Screening Mammogram of both breasts in [address] [facility] will attempt to contact patient to return for supplemental views and ultrasound if indicated. Patient should continue monthly self-breast exams. A clinical breast exam by your physician is recommended on an annual basis. This exam should not preclude additional follow-up of suspicious palpable abnormalities. Note on Jaclyn scores and lifetime risk: 1. A Jaclyn score greater than 3% is considered moderate risk. If this is the case, consider specialist referral to assess eligibility for a risk reducing agent. 2. If overall lifetime risk for the development of breast cancer is 20% or higher, the patient may qualify for future screening with alternating mammogram and breast MRI. Electronically signed and approved by: Reinaldo Albert DO
== END | disposition home or self-care (01) ==
LOC: RADMAMWWP 15:35
PROVIDERS: ATTEND Obstetrics & Gynecology
DX: Z12.31 Encounter for screening mammogram for malignant neoplasm of breast (principal); Z78.0 Asymptomatic menopausal state
CPT/HCPCS: 77063; 77067

== ENCOUNTER → 2023-09-14 | Outpatient (CLI) | payer MEDICARE ==
[2023-09-14 15:20] VITALS: BMI 39.8
== END ==
LOC: BARWHC3 12:50
PROVIDERS: ATTEND Surgery Plastic and Reconstructive Surgery
DX: E66.01 Morbid (severe) obesity due to excess calories (principal); Z71.3 Dietary counseling and surveillance; Z68.39 Body mass index [BMI] 39.0-39.9, adult; Z88.5 Allergy status to narcotic agent
CPT/HCPCS: 97804

== ENCOUNTER → 2023-11-11 | Outpatient (CLI) | payer MEDICARE ==
[2023-11-11 16:10] VITALS: BP 132/88; PULSE 97; TEMP 98.4; BMI 41.3
--- NOTE | 2023-11-11 16:25 | P.BASOAP ---
Subjective Progress Note Date: 11/11/23 DATE OF CONSULTATION: 11/11/23 CHIEF COMPLAINT: Morbid obesity HISTORY OF PRESENT ILLNESS: Yesi Gastelum is a 68-year-old female with past history of adjustable gastric band from 2001 and had removal of her band in 2019. Her lowest weight with the band was 153 pounds. She developed rheumatological problems including lupus and Sjogrens disease requiring removal of her band. She has troubles with swallowing. She presents with complications from adjustable gastric band with moderate weight gain. She is looking into the gastric bypass. She has completed medical supervised weight loss. At her height of 5 foot 5.5 inches, her ideal body weight is 149 pounds. Her highest weight was 252 pounds. Her body mass index was 41.3. She has gained over 60 pounds in 2 years. PAST MEDICAL HISTORY: 1. Morbid obesity due to excess calories, BMI 41.3 2. Hypertension. 3. Hypothyroidism. 4. Depression. 5. Vitamin B12 deficiency. 6. Vitamin D deficiency. 7. Anxiety. 8. Fibromyalgia. 9. Osteoarthritis. 10. Bladder urgency. 11. Spinal stenosis 12. Lupus PAST SURGICAL HISTORY: 1. Adjustable gastric band placement. 2. Bladder sling operation. 3. Bilateral breast reduction. 4. Blepharoplasty. 5. Adjustable gastric band removal MEDICATIONS: Home Medications Medication Instructions Recorded Confirmed Levothyroxine Sodium [Synthroid] 112 mcg PO QAM 01/01/16 11/11/23 Lisinopril-Hctz 20-25 mg 1 tab PO QAM 01/01/16 11/11/23 [Zestoretic 20-25] Multivitamins, Thera [Multivitamin 1 tab PO DAILY 01/01/16 11/11/23 (formulary)] Desvenlafaxine Succinate [Pristiq] 100 mg PO QAM 03/23/19 11/11/23 Calcium Carbonate [Calcium] 1,200 mg PO DAILY 12/06/19 11/11/23 Cyanocobalamin (Vitamin B-12) 1,000 mcg PO DAILY 01/23/21 11/11/23 [Vitamin B-12] ALPRAZolam [Xanax] 0.5 mg PO HS 12/04/22 11/11/23 Aspirin 81 mg PO DAILY 12/04/22 11/11/23 Atorvastatin [Lipitor] 40 mg PO QAM 12/04/22 11/11/23 Cholecalciferol [Vitamin D3 (25 125 mcg PO DAILY 12/04/22 11/11/23 Mcg = 1000 Iu)] Previous Rx's Medication Instructions Recorded Sucralfate [Carafate] 1 gm PO BID #60 tablet 07/22/23 ALLERGIES: Allergies Allergy/AdvReac Type Severity Reaction Status Date / Time codeine AdvReac Unknown Headache Verified 07/13/23 08:38 hydrocodone [From [place]] AdvReac Unknown FELT Verified 07/13/23 08:38 SPACEY, NO CONTROL- DOES NOT WANT. SOCIAL HISTORY: Lifelong tobacco user. No reports of recent alcohol use. FAMILY HISTORY: Pertinent for diabetes, hypertension including neuropathy. REVIEW OF SYSTEMS: CONSTITUTIONAL: At her height of 5 foot 5.5 inches, her ideal body weight is 149 pounds. Her highest weight was 252 pounds. Her body mass index was 41.3 ENDOCRINE: History of hypothyroidism. No reports of diabetes. GASTROINTESTINAL: Denies the any moderate gastroesophageal reflux disease. MUSCULOSKELETAL: Reports osteoarthritis, including for fibromyalgia. NEURO: Reports neuropathy of the bilateral lower extremities including intentional tremors. PSYCH: History of depression including anxiety. HEMATOLOGIC: No reports of easy bruising or bleeding. HEENT: Denies any trouble with vision, hearing or nosebleeds. Has difficulty swallowing. LYMPHATIC: The patient denies any lumps and bumps around the neck. CARDIOVASCULAR: Denies any chest pain, palpitations, or recent heart attacks. Has hypertensive heart disease. GENITOURINARY: Denies any blood in urine or increased urinary frequency. SKIN: No cancer. No current rash. RHEUMATIC: Sjogrens disease. Has lupus PHYSICAL EXAM: VITAL SIGNS: 5 foot 5.5 inches, 252 pounds. Body mass index 41.3 Vital Signs Temp 98.4 F 11/11/23 15:49 Pulse 97 11/11/23 15:49 Resp BP 132/88 11/11/23 15:49 Pulse Ox FiO2 GENERAL: Well-developed female in no acute distress. HEENT: No scleral icterus. Extraocular muscles grossly intact. Moist buccal mucosa. NECK: Supple without lymphadenopathy. CHEST: Nonlabored respirations with equal bilateral excursions. CARDIOVASCULAR: Distal pulses 2+. ABDOMEN: Obese, soft. Palpable lap band port left upper quadrant. MUSCULOSKELETAL: No clubbing, cyanosis, or edema. NEURO: No focal or lateralizing signs. Intentional tremors noted. Cranial nerves II through XII grossly within normal limits. PSYCH: Flat affect. Alert and oriented to person, place and time. SKIN: Well perfused. Good skin turgor. REPORTS: Cardiac risk assessment obtained ASSESSMENT: 1. Morbid obesity due to excess calories, BMI 41.3 2. Hypertensive heart disease 3. Hypothyroidism. 4. Depression. 5. Vitamin B12 deficiency. 6. Vitamin D deficiency. 7. Anxiety. 8. Fibromyalgia. 9. Osteoarthritis. 10. Bladder urgency. 11. Spinal stenosis 12. Lupus 13. Complications of adjustable gastric band PLAN: 1. Bariatric options between a sleeve and a Taylor-en-Y gastric bypass were reviewed in detail. The patient elected for gastric bypass wishes increased risk for leaks and complications. Robotic assisted approach described. 2. The [place] [facility] Data was also reviewed with benefits and risks as described. 3. An 8 page second-generation bariatric consent form was reviewed in detail including potential of bleeding, infection, leaks, adequate weight loss, nutritional deficiencies which the patient demonstrated understanding of the risks. 4. A 2 week high-protein low caloric 800 kcal diet described to address hepatomegaly. 5. Preoperative labs including complete metabolic panel and CBC with type and screen recommended. 6. DVT prophylaxis per [place] [facility]. 7. Antibiotic prophylaxis. 8. Inpatient hospitalization anticipated for more than 2 nights. 9. All questions and concerns were addressed with the patient. 10. The patient is at elevated risk for perioperative complications with sleep apnea and hypertensive heart disease. 11. Overall, patient has expressed understanding of bariatric care including postoperative diet and commitment of lifestyle. Patient should benefit from surgical intervention for correction of morbid obesity. 12. She is elevated risk due to pre-existing comorbid conditions 13. Strict 2 week diet advised including hydration over 64 ounces daily and increased activity Objective - Vital Signs Vital signs: Vital Signs Temp 98.4 F 11/11/23 15:49 Pulse 97 11/11/23 15:49 Resp BP 132/88 11/11/23 15:49 Pulse Ox FiO2 Intake & Output 11/10/23 11/11/23 11/11/23 18:59 06:59 18:59 Weight 114.305 kg Assessment/Plan Plan: Date: 11/11/23 Initial Weight: 111.13 kg Initial BMI: 40.1 Current Weight: 114.305 kg Current BMI: 41.3 Type of Surgery: Total Volume in Band: 0 Previous Volume: Volume Removed: Volume Added: Band Size:
== END ==
LOC: BARWHC3 15:20
PROVIDERS: ATTEND Surgery Plastic and Reconstructive Surgery
DX: E66.01 Morbid (severe) obesity due to excess calories (principal); I10 Essential (primary) hypertension; E03.9 Hypothyroidism, unspecified; F32.A Depression, unspecified; E53.8 Deficiency of other specified B group vitamins; E55.9 Vitamin D deficiency, unspecified; F41.9 Anxiety disorder, unspecified; M79.7 Fibromyalgia; M19.90 Unspecified osteoarthritis, unspecified site; R39.15 Urgency of urination; M48.00 Spinal stenosis, site unspecified; M32.9 Systemic lupus erythematosus, unspecified; Z88.5 Allergy status to narcotic agent; Z79.899 Other long term (current) drug therapy; Z79.82 Long term (current) use of aspirin
CPT/HCPCS: 99211

== ENCOUNTER → 2023-11-25 | Outpatient (CLI) | payer MEDICARE ==
[2023-11-25 15:23] LABS: Chol/HDL Ratio 4.79 Ratio
[2023-11-25 15:24] LABS: ALT 62 U/L (8-44); AST 42 U/L (13-35); LDL Cholesterol,Calculated 119.2 mg/dL (0.0-131.0)
== END | disposition home or self-care (01) ==
LOC: LABPAT 10:59
PROVIDERS: ATTEND Internal Medicine Cardiovascular Disease
DX: E78.2 Mixed hyperlipidemia (principal)
CPT/HCPCS: 80061; 84450; 84460

== ENCOUNTER 2023-12-07 15:20 | Inpatient (IN) | payer MEDICARE ==
[2024-01-11] MEDS ORDERED: ONDANSETRON 4 MG/2 ML VIAL IVP PRN (05:00)
--- NOTE | 2024-01-11 07:36 | P.GSHP ---
History of Present Illness H&P Date: 01/11/24 CHIEF COMPLAINT: Morbid obesity HISTORY OF PRESENT ILLNESS: Yesi Gastelum is a 68-year-old female with past history of adjustable gastric band from 2001 and had removal of her band in 2019. She has troubles with swallowing. She presents with complications from adjustable gastric band with moderate weight gain. She is looking into the gastric bypass. She has completed medical and cardiac risk assessment. At her height of 5 foot 5.5 inches, her ideal body weight is 149 pounds. Her highest weight was 252 pounds. Her body mass index was 41.3. She has gained over 60 pounds in 2 years. PAST MEDICAL HISTORY: 1. Morbid obesity due to excess calories, BMI 41.3 2. Hypertension. 3. Hypothyroidism. 4. Depression. 5. Vitamin B12 deficiency. 6. Vitamin D deficiency. 7. Anxiety. 8. Fibromyalgia. 9. Osteoarthritis. 10. Bladder urgency. 11. Spinal stenosis 12. Lupus PAST SURGICAL HISTORY: 1. Adjustable gastric band placement. 2. Bladder sling operation. 3. Bilateral breast reduction. 4. Blepharoplasty. 5. Adjustable gastric band removal MEDICATIONS: Home Medications Medication Instructions Recorded Confirmed Levothyroxine Sodium [Synthroid] 112 mcg PO QAM 01/01/16 11/11/23 Lisinopril-Hctz 20-25 mg 1 tab PO QAM 01/01/16 11/11/23 [Zestoretic 20-25] Multivitamins, Thera [Multivitamin 1 tab PO DAILY 01/01/16 11/11/23 (formulary)] Desvenlafaxine Succinate [Pristiq] 100 mg PO QAM 03/23/19 11/11/23 Calcium Carbonate [Calcium] 1,200 mg PO DAILY 12/06/19 11/11/23 Cyanocobalamin (Vitamin B-12) 1,000 mcg PO DAILY 01/23/21 11/11/23 [Vitamin B-12] ALPRAZolam [Xanax] 0.5 mg PO HS 12/04/22 11/11/23 Aspirin 81 mg PO DAILY 12/04/22 11/11/23 Atorvastatin [Lipitor] 40 mg PO QAM 12/04/22 11/11/23 Cholecalciferol [Vitamin D3 (25 125 mcg PO DAILY 01/12/23 12/20/23 Mcg = 1000 Iu)] Previous Rx's Medication Instructions Recorded Sucralfate [Carafate] 1 gm PO BID #60 tablet 07/22/23 ALLERGIES: Allergies Allergy/AdvReac Type Severity Reaction Status Date / Time codeine AdvReac Unknown Headache Verified 07/13/23 08:38 hydrocodone [From [place]] AdvReac Unknown FELT Verified 07/13/23 08:38 SPACEY, NO CONTROL- DOES NOT WANT. SOCIAL HISTORY: Lifelong tobacco user. No reports of recent alcohol use. FAMILY HISTORY: Pertinent for diabetes, hypertension including neuropathy. REVIEW OF SYSTEMS: CONSTITUTIONAL: At her height of 5 foot 5.5 inches, her ideal body weight is 149 pounds. Her highest weight was 252 pounds. Her body mass index was 41.3 ENDOCRINE: History of hypothyroidism. No reports of diabetes. GASTROINTESTINAL: Denies the any moderate gastroesophageal reflux disease. MUSCULOSKELETAL: Reports osteoarthritis, including for fibromyalgia. NEURO: Reports neuropathy of the bilateral lower extremities including intent ional tremors. PSYCH: History of depression including anxiety. HEMATOLOGIC: No reports of easy bruising or bleeding. HEENT: Denies any trouble with vision, hearing or nosebleeds. Has difficulty sw allowing. LYMPHATIC: The patient denies any lumps and bumps around the neck. CARDIOVASCULAR: Denies any chest pain, palpitations, or recent heart attacks. Has hypertensive heart disease. GENITOURINARY: Denies any blood in urine or increased urinary frequency. SKIN: No cancer. No current rash. RHEUMATIC: Sjogrens disease. Has lupus PHYSICAL EXAM: VITAL SIGNS: 5 foot 5.5 inches, 252 pounds. Body mass index 41.3 GENERAL: Well-developed female in no acute distress. HEENT: No scleral icterus. Extraocular muscles grossly intact. Moist buccal mucosa. NECK: Supple without lymphadenopathy. CHEST: Nonlabored respirations with equal bilateral excursions. CARDIOVASCULAR: Distal pulses 2+. ABDOMEN: Obese, soft. Palpable lap band port left upper quadrant. MUSCULOSKELETAL: No clubbing, cyanosis, or edema. NEURO: No focal or lateralizing signs. Intentional tremors noted. Cranial nerves II through XII grossly within normal limits. PSYCH: Flat affect. Alert and oriented to person, place and time. SKIN: Well perfused. Good skin turgor. ASSESSMENT: 1. Morbid obesity due to excess calories, BMI 41.3 2. Hypertensive heart disease 3. Hypothyroidism. 4. Depression. 5. Vitamin B12 deficiency. 6. Vitamin D deficiency. 7. Anxiety. 8. Fibromyalgia. 9. Osteoarthritis. 10. Bladder urgency. 11. Spinal stenosis 12. Lupus 13. Complications of adjustable gastric band PLAN: 1. Bariatric options between a sleeve and a Taylor-en-Y gastric bypass were reviewed in detail. The patient elected for gastric bypass but she is at increased risk due to conversion from band to bypass. 2. The [place] [facility] Data was also reviewed with benefits and risks as described. 3. An 8 page second-generation bariatric consent form was reviewed in detail including potential of bleeding, infection, leaks, adequate weight loss, nutritional deficiencies which the patient demonstrated understanding of the risks. 4. A 2 week high-protein low caloric 800 kcal diet described to address hepatomegaly. 5. Preoperative labs including complete metabolic panel and CBC with type and screen recommended. 6. DVT prophylaxis per [place] [facility]. 7. Antibiotic prophylaxis. 8. Inpatient hospitalization anticipated for more than 2 nights. 9. All questions and concerns were addressed with the patient. 10. Repeat CBC and CMP due to recent abnormalities. Past Medical History Past Medical History: Fibromyalgia, GERD/Reflux, Hyperlipidemia, Hypertension, Musculoskeletal Disorder, Osteoarthritis (OA), Thyroid Disorder Additional Past Medical History / Comment(s): "SOB from lack of activity and gaining weight, checked out by [employer] - everything ok". CHRONIC LOWER BACK PAIN, problems with discs in back and neck. IBS. Sjogren's-dry painful mouth, nose, eyes History of Any Multi-Drug Resistant Organisms: None Reported Past Surgical History: Bariatric Surgery, Bladder Surgery, Breast Surgery, Heart Catheterization, Joint Replacement, Tonsillectomy Additional Past Surgical History / Comment(s): Lap band insertion and eventual replacement, bladder sling, bilat. breast reduction, eyelid surgery, lap band removal 07-04-19, right hip replacement. Past Anesthesia/Blood Transfusion Reactions: Motion Sickness, No Reported Reaction Smoking Status: Never smoker - Past Family History Mother Family Medical History: Diabetes Mellitus, Hypertension Additional Family Medical History / Comment(s): OBESITY, NEUROPATHY-EVENTALLY IN W/C -COULDN'T FEEL FEET. Father Family Medical History: No Reported History Additional Family Medical History / Comment(s): AGE 92-JUST DROVE UP FROM [place] FOR GRANDSON'S Medications and Allergies Home Medications Medication Instructions Recorded Confirmed Type Levothyroxine Sodium [Synthroid] 112 mcg PO QAM 01/01/16 01/05/24 History Lisinopril-Hctz 20-25 mg 1 tab PO QAM 01/01/16 01/05/24 History [Zestoretic 20-25] Multivitamins, Thera [Multivitamin 1 tab PO DAILY 01/01/16 01/05/24 History (formulary)] Desvenlafaxine Succinate [Pristiq] 100 mg PO QAM 03/23/19 01/05/24 History Calcium Carbonate [Calcium] 1,200 mg PO DAILY 12/06/19 01/05/24 History Cyanocobalamin (Vitamin B-12) 1,000 mcg PO DAILY 01/23/21 01/05/24 History [Vitamin B-12] ALPRAZolam [Xanax] 0.5 mg PO HS 12/04/22 01/05/24 History Aspirin 81 mg PO DAILY 12/04/22 01/05/24 History Atorvastatin [Lipitor] 40 mg PO QAM 12/04/22 01/05/24 History Cholecalciferol [Vitamin D3 (25 125 mcg PO DAILY 12/04/22 01/05/24 History Mcg = 1000 Iu)] Sucralfate [Carafate] 1 gm PO BID #60 tablet 07/22/23 01/05/24 Rx Allergies Allergy/AdvReac Type Severity Reaction Status Date / Time codeine AdvReac Unknown Headache Verified 01/05/24 13:36 hydrocodone [From [place]] AdvReac Unknown FELT Verified 01/05/24 13:36 SPACEY, NO CONTROL- DOES NOT WANT.
[2024-01-11] MEDS: LACTATED RINGERS 1,000 ML IV SCH (08:28)
[2024-01-11] MEDS: ALVIMOPAN 12 MG CAPSULE PO PRN (08:35)
[2024-01-11] MEDS: ACETAMINOPHEN TAB 500 MG TAB PO PRN (08:35)
[2024-01-11] MEDS: CHLORHEXIDINE GLUCONATE 15 ML CUP MUCOUS MEM STA (08:36)
[2024-01-11] MEDS: ONDANSETRON 4 MG/2 ML VIAL IVP ONE (08:40)
[2024-01-11] MEDS: DEXAMETHASONE SOD PHOSPHATE 4 MG/ML 1 ML VIAL IV ONE (08:40)
[2024-01-11] MEDS: PANTOPRAZOLE 40 MG/10 ML VIAL IVP STA (08:40)
[2024-01-11] MEDS: HEPARIN SODIUM,PORCINE 5,000 UNIT/ML 1 ML VIAL SQ PRN (08:41)
[2024-01-11] MEDS ORDERED: fentaNYL (PF) 50 MCG/ML 2 ML AMP ONE (10:05)
[2024-01-11] MEDS ORDERED: SUCCINYLCHOLINE CHLORIDE 200 MG/10 ML VIAL IV ONE (10:05)
[2024-01-11] MEDS ORDERED: GLYCOPYRROLATE 0.2 MG/ML 2 ML VIAL ONE (10:05)
[2024-01-11] MEDS ORDERED: KETAMINE HCL IN 0.9 % NACL 50 MG/5 ML SYRINGE ONE (10:05)
[2024-01-11] MEDS ORDERED: LIDOCAINE 1% INJ 10MG/ML (20 ML MDV) ONE (10:05)
[2024-01-11] MEDS ORDERED: PROPOFOL 10 MG/ML 20 ML VIAL IV ONE (10:05)
[2024-01-11] MEDS ORDERED: ePHEDrine 50 MG/ML 1 ML VIAL ONE (10:05)
[2024-01-11] MEDS ORDERED: PHENYLEPHRINE 10 MG/ML VIAL ONE (10:05)
[2024-01-11] MEDS ORDERED: MIDAZOLAM 2 MG/2 ML VIAL ONE (10:05)
[2024-01-11] MEDS ORDERED: NEOSTIGMINE 1 MG/ML 10 ML VIAL ONE (10:05)
[2024-01-11] MEDS ORDERED: ROCURONIUM 10 MG/ML (5 ML VIAL) IV ONE (10:05)
[2024-01-11] MEDS: LIDOCAINE 1%-EPI 1:100,000 50 ML VIAL SQ ONE ×2 (10:30→10:38)
[2024-01-11] MEDS: LACTATED RINGERS 1,000 ML IV ONE (12:36)
[2024-01-11] MEDS: fentaNYL (PF) 50 MCG/ML 2 ML AMP IV PRN (13:29)
[2024-01-11] MEDS ORDERED: diphenhydrAMINE 50 MG/ML 1 ML VIAL IVP PRN (13:30)
[2024-01-11] MEDS ORDERED: NALOXONE 0.4 MG/ML 1 ML VIAL IV PRN ×2 (13:30→13:40)
--- NOTE | 2024-01-11 13:40 | P.OP ---
Date of Procedure: 01/11/24 Description of Procedure: SURGEON: LEXA SNOW MD PREOPERATIVE DIAGNOSES: 1. Morbid obesity due to excess calories, BMI 41.3 2. Hypertensive heart disease 3. Hypothyroidism. 4. Depression. 5. Vitamin B12 deficiency. 6. Vitamin D deficiency. 7. Anxiety. 8. Fibromyalgia. 9. Osteoarthritis. 10. Bladder urgency. 11. Spinal stenosis 12. Lupus 13. Complications of adjustable gastric band POSTOPERATIVE DIAGNOSES: 1. Morbid obesity due to excess calories, BMI 41.3 2. Hypertensive heart disease 3. Hypothyroidism. 4. Depression. 5. Vitamin B12 deficiency. 6. Vitamin D deficiency. 7. Anxiety. 8. Fibromyalgia. 9. Osteoarthritis. 10. Bladder urgency. 11. Spinal stenosis 12. Lupus 13. Complications of adjustable gastric band OPERATION: 1. Robotic assisted da Jose Xi laparoscopic Juan David-en-Y gastric bypass, 100 cm antecolic antegastric Juan David limb, with 25 mm EEA. 2. Intraoperative esophagogastrojejunoscopy. ANESTHESIA: GETA and local ESTIMATED BLOOD LOSS: 5 mL SPECIMENS REMOVED: None. COMPLICATIONS: NONE. Operative Findings: 1. Biliopancreatic limb 60 cm 2. Bypass performed using 100 cm juan david limb secondary to avoid increased tension at 150 cm. 3. Jejunojejunostomy and Jordan's defects closed using 2-0 V-LOC, blue 4. Leak test negative with gastrojejunal anastomosis patent and hemostatic. 5. Reinforcement sutures were placed along the gastrojejunal anastomosis at 3:00, 9:00 and 12:00. 6. Chronic cholecystitis INDICATIONS: Yesi Gastelum is a 68-year-old female with past history of adjustable gastric band from 2002 and had removal of her band in 2019. She has troubles with swallowing. She presents with complications from adjustable gastric band with moderate weight gain. She is looking into the gastric bypass. She has completed medical and cardiac risk assessment. At her height of 5 foot 5.5 inches, her ideal body weight is 149 pounds. Her highest weight was 252 pounds. Her body mass index was 41.3. She has gained over 60 pounds in 2 years. She completed medical supervised weight loss with 2-week weight loss of 14 pounds. A second-generation bariatric consent form was described in detail including the possibility of protein malnutrition, leaks, gastrojejunal stricture, venous thrombosis, need for further surgery for which she demonstrated understanding. Benefits and risks of the procedure were described at length. Informed consent was obtained. Patient understands she is increased risk for complications due to conversion from a band to gastric bypass including leaks. DESCRIPTION: The patient was brought into the operating room theater. She was placed supine. She had received heparin subcutaneously for DVT prophylaxis. Additionally Peridex oral solution as an oral decontaminant was placed per anesthesia. After general induction, the abdomen was prepped and draped in standard sterile fashion. Ioban draping was placed along the abdomen. Camejo catheter was avoided. A robotic da Jose Xi system was prepped and primed. Incisions were proposed at 15 cm from the xiphoid. Proposed port sites were marked with indelible marker along the anterior axillary line bilaterally, mid clavicular line bilaterally with each port marked 10 cm from each other. The robotic stapler port was marked for the right midclavicular line including along the left midclavicular line. A 5 mm 0 degrees laparoscopic trocar entry was performed along the left upper quadrant. The abdomen was insufflated to 15 mmHg pressure, which she tolerated well. Diagnostic laparoscopy demonstrated no injury to bowel, viscera, or mesentery. The liver demonstrated fatty liver disease although minimal hepatomegaly. Presence of thickened gallbladder wall consistent with chronic cholecystitis was identified. An 8 mm camera port was placed left lateral to the umbilicus at the epigastrium, 15 cm distal to the xiphoid. Next, 12-mm robot stapler port was placed along the right mid abdomen. An 12 mm port was exchanged along the left upper quadrant. An 8 mm port was placed on the left lateral abdominal wall under direct visualization Please note that the ports were placed 18 to 20 cm away from the target anatomy of the stomach. Care was taken to check that each robotic arm was safely away from collision with the bed or the patient. At the epigastrium, a medium sized Bud liver retractor was placed under direct visualization with the Iron Patient Financial Representative placed under the right shoulder of the patient. The patient was repositioned in reverse Trendelenburg position at 21-degrees after lowering the bed. The robot was docked over the patient. Using grasper for arm 3, a grasper for arm 1, including vessel sealer for arm 4, the robotic system was docked and primed as described. Instruments were interchanged by the investment sales assistant including endoscissors, the needle screw driver operator, and stapler. I had sat at the console. Next, the transverse mesocolon was reflected into the upper abdomen for the jejunojejunostomy portion of the case. The ligament of Treitz was identified and measured 60 cm antegrade and marked using 3-0 Silk. The jejunum was divided at the 60 cm point using 60-mm white loads above the suture measurement. The biliopancreatic limb was held in place. The Juan David limb was measured 100 cm in an antegrade fashion to avoid tension along the proposed gastrojejunal anastomosis. At 100 cm along the anti-mesenteric border of the Juan David limb, a jejunojejunostomy was proposed whereby enterotomies were created along the biliopancreatic limb including the Juan David limb using a Bovie cautery. A stay suture of 3-0 Slik was placed to align and create the anastomosis. The enterotomies along the anti- mesenteric borders were created followed by unidirectional fire from the patient's right side using 60 mm white loads Smart technology robotic stapler. The jejunojejunostomy was found to be hemostatic. The enterotomy was closed after horizontal mattress stitch of 3-0 silk used to elevate the enterotomy followed by closure with the robotic stapler blue load. The jejunal limb was temporarily tacked along the left upper quadrant. Attention was now brought to the creation of the gastrojejunostomy. Along the lesser curvature of the stomach, dissection was made along the retrogastric space to allow first firing of the robotic staple. Multiple green staple loads including 1 blue loads of 60 mm staplers were used to divide the stomach to create the gastric pouch. Complete division of the stomach was ensured. The patient was then prepared for placement of a Orvil. A 25-mm Orvil was selected for placement by the nurse wood model maker. The Orvil tubing was placed anterior to the staple line of the gastric pouch and brought out through the left inferior lateral port. I re-scrubbed into the case. The robotic arms were temporarily undocked. The Orvil was then carefully and successfully navigated with the help of the nurse wood model maker into the gastric pouch. The sutures were identified and divided. The tubing was from the 25 mm anvil. As the Orvil had been placed, the jejunal limb was brought proximally into the upper abdomen. No torsion was found upon the Juan David limb. No tension was identified as the limb was brought along the upper abdomen. The jejunal limb was previously opened using hook cautery. The 25-mm EEA stapler was brought through the left anterior lateral port site from the left side. The EEA stapler was brought through the open jejunal limb and its needle was deployed at the antimesenteric border where the anvil were mated for approximately 1 minute upon firing. The stapler was removed after irrigating the shaft of the instrument with warm normal saline. Donuts were found to be intact and on both sides. The da Jose Xi robot arms were then re-docked. I sat at the console. The open jejunal limb defect was closed using 60 mm blue loads after releasing any tension from the blind jejunal limb. No redundancy was present for jejunal limb. The transverse mesocolon was divided for the juan david limb. Reinforcement sutures were placed along the gastrojejunal anastomosis and placed along the 3:00, 9:00, 12:00 o'clock position using 3-0 Vicryl. The Jordan and jejunojejunostomy mesenteric defect was closed using 2-0 V LOC, blue. I then went to the head of the bed to perform the esophagogastrojejunoscopy and a leak test. An Olympus gastroscope was passed alongthe posterior oropharynx which was unremarkable for any injury to the vocal cords. The scope was passed down to the proximal portion of the pouch, whereby no active bleeding was encountered. Excellent visualization of the gastrojejunostomy anastomosis, including the Juan David limb was encountered with endoscopic image obtained. The anastomosis was found to be patent without active bleeding. Residual blood was suctioned from the gastric pouch. The gastrointestinal tract was desufflated. No evidence of intraoperative leak was encountered as the gastric pouch and anastomosis were submerged under normal saline solution. The robot was then undocked. I then went back to the bedside of the patient, whereby with coordinated effort of the investment sales assistant, irrigation was aspirated from the upper abdominal cavity. Tisseel was placed circumferentially over the anastomosis of the gastrojejunostomy. The fascial defect of the EEA stapler was closed using Israel Rose and 0 Vicryl. All instruments and pneumoperitoneum were evacuated from the abdominal cavity. The port correlating with the EEA stapler device was cleansed with normal saline solution and hydrogen peroxide. The rest of incisions were reapproximated using 4-0 Monocryl in an interrupted subcuticular fashion. Local anesthetic was infiltrated along the skin for postop analgesia. Liquid glue was applied to the skin. OptiFoam dressing was placed along the EEA stapler site. At the end of the procedure, needle, sponge and instrument count had been verified correct by the surgical brace maker. The patient had tolerated the procedure well and was extubated and taken to the postanesthesia unit in stable condition.
[2024-01-11] MEDS: ACETAMINOPHEN IV (For NPO) 1,000 MG/100 ML VIAL IVPB ONE (14:25)
[2024-01-11] MEDS: ALBUTEROL NEBULIZED 2.5 MG/3 ML INHALATION SCH (16:00)
[2024-01-11] MEDS: fentaNYL (PF) 50 MCG/ML 2 ML AMP IVP ONE (16:36)
[2024-01-11] MEDS: ACETAMINOPHEN IV (For NPO) 1,000 MG in EMPTY BAG 1 BAG IVPB SCH (17:52)
[2024-01-11] MEDS: SODIUM CHLORIDE 0.9% 2,000 ML IV ONE (18:24)
[2024-01-11] MEDS: SIMETHICONE 80 MG CHEWABLE PO SCH (18:28)
[2024-01-11] MEDS: ONDANSETRON 4 MG/2 ML VIAL IVP SCH (19:57)
[2024-01-11] MEDS: fentaNYL PCA 500 MCG/50 ML BAG IV PRN (20:24)
[2024-01-11] MEDS: DEXAMETHASONE SOD PHOSPHATE 10 MG/ML 1 ML VIAL IVP ONE (20:45)
[2024-01-11] MEDS: HEPARIN SODIUM,PORCINE 5,000 UNIT/ML 1 ML VIAL SQ SCH (21:50)
[2024-01-11] MEDS: 0.9% NACL WITH KCL 20 MEQ/L 1,000 ML IV SCH (22:06)
[2024-01-12] MEDS: DEXAMETHASONE SOD PHOSPHATE 4 MG/ML 1 ML VIAL IVP SCH (00:10)
[2024-01-12] MEDS: 0.9% NACL WITH KCL 20 MEQ/L 1,000 ML IV SCH (05:11)
--- NOTE | 2024-01-12 09:50 | FL ---
SINGLE CONTRAST UPPER GI EXAMINATION: CLINICAL HISTORY: 68-year-old female postop bariatric surgery, Taylor-en-Y gastric bypass. TECHNIQUE: Single contrast exam performed with 30 ml Isovue-370 contrast. Total fluoroscopy time: 1 minute 46 seconds Total images: 28 DOSE AREA PRODUCT (DAP) UGY*M,MGY*CM: 622.2 FINDINGS: The patient swallowed oral contrast without difficulty or delay. Esophageal peristalsis shows mild-t o-moderate tertiary peristaltic waves. Some intraesophageal reflux is noted distal esophagus after in itial hesitancy in the passage of contrast across the GE junction. Towards the end of the study, con trast begins to pass more easily. There is no extravasation of contrast to suggest leak. Contrast ent ers the stomach and crosses the gastroduodenal jejunostomy without delay. No free intraperitoneal air identified below either hemidiaphragm. IMPRESSION: Status post Taylor-en-Y gastric bypass. Initial hesitancy at the GE junction resolves by the end of the exam. No leak, persistent obstruction, or free air identified.
[2024-01-12] MEDS: LISINOPRIL-HCTZ 20-25 MG 1 EACH TAB PO SCH (10:07)
[2024-01-12 11:06] VITALS: BMI 39.6
[2024-01-12 13:00] LABS: Basophils # (A) 0.06 X 10*3/uL (0.00-0.10); Basophils % (A) 0.4 %; Eosinophils # (A) 0 X 10*3/uL (0.04-0.35); Eosinophils % (A) 0 %; HCT 41.6 % (37.2-46.3); HGB 13.6 g/dL (12.0-15.0); Lymphocytes # (A) 0.47 X 10*3/uL (0.90-5.00); Lymphocytes % (A) 3.3 %; MCH 30.5 pg (27.0-32.0); MCHC 32.7 g/dL (32.0-37.0); MCV 93.3 FL (80.0-97.0); Mean Platelet Volume 11.2 FL (9.5-12.2); Monocytes # (A) 0.43 X 10*3/uL (0.20-1.00); Monocytes % (A) 3.1 %; NRBC Per 100 WBC 0 X 10*3/uL (0.00-0.01); Neutrophils # (A) 13.03 X 10*3/uL (1.80-7.70); Neutrophils % (A) 92.8 %; Platelet Count 173 X 10*3/uL (140-440); RBC 4.46 X 10*6/uL (4.10-5.20); RDW 14.4 % (11.5-14.5); WBC 14.05 X 10*3/uL (4.50-10.00)
[2024-01-12 13:12] LABS: Blood Urea Nitrogen 11.8 mg/dL (9.0-27.0); Calcium 8.6 mg/dL (8.7-10.3); Carbon Dioxide 27.4 mmol/L (21.6-31.8); Chloride 97 mmol/L (96-109); Magnesium 1.4 mg/dL (1.5-2.4); Phosphorus 2.4 mg/dL (2.4-5.1); Potassium 3.5 mmol/L (3.5-5.5); Sodium 137 mmol/L (135-145)
--- NOTE | 2024-01-12 16:13 | P.PN ---
Subjective Progress Note Date: 01/12/24 CHIEF COMPLAINT: Morbid obesity HISTORY OF PRESENT ILLNESS: Patient patient reports that she is still using the FLOOR COVERING INSTALLER pump for pain control. She did have urinary retention and required to be straight cathed. She denies any pain in the right upper quadrant. Denies any nausea or vomiting. Tolerating liquids. Afebrile. BP 96/59 WBC 14.05 Hgb 13.6 platelets 173 magnesium 1.4 potassium 3.5 PHYSICAL EXAM: VITAL SIGNS: Reviewed GENERAL: Well-developed in no acute distress. HEENT: No sclera icterus. Extraocular movements grossly intact. Moist buccal mucosa. Head is atraumatic, normocephalic. Hears conversational speech. No nasal drainage. NECK: Supple without lymphadenopathy. CHEST: Non-labored respirations and equal bilateral excursions. CARDIOVASCULAR: Palpable 2+ radial pulses. ABDOMEN: Soft. Nondistended. Nontender. MUSCULOSKELETAL: No clubbing or cyanosis. NEUROLOGIC: No focal or lateralizing signs. Cranial nerves II through XII grossly intact. PSYCH: Appropriate affect. Alert and oriented to person, place and time. SKIN: Well perfused. Good skin turgor. ASSESSMENT: 1. Morbid obesity due to excess calories, BMI 41.3 2. Hypertensive heart disease 3. Hypothyroidism. 4. Depression. 5. Vitamin B12 deficiency. 6. Vitamin D deficiency. 7. Anxiety. 8. Fibromyalgia. 9. Osteoarthritis. 10. Bladder urgency. 11. Spinal stenosis 12. Lupus 13. Complications of adjustable gastric band 14. Hypokalemia and hypomagnesemia PLAN: -Patient is hypotensive. Discontinue Zestoretic. Give a 1 L fluid bolus. -Continue bariatric clear liquid diet -Continue with IV fluids. Potassium has been added to IV fluids -Replace magnesium -Encourage patient ambulate -Continue to monitor for any further urinary retention -Continue pain management -Anticipate discharge possibly tomorrow -DVT prophylaxis subcu heparin Physician Credit Assessment Analyst note has been reviewed by physician. Signing provider agrees with the documented findings, assessment, and plan of care. Objective - Vital Signs Vital signs: Vital Signs Temp 99.1 F 01/12/24 07:25 Pulse 80 01/12/24 07:25 Resp 20 01/12/24 07:25 BP 97/62 01/12/24 07:25 Pulse Ox 92 L 01/12/24 11:16 FiO2 Intake & Output 01/11/24 01/12/24 01/12/24 18:59 06:59 18:59 Intake Total 1850 2300 Output Total 5 1150 500 Balance 1845 1150 -500 Weight 107.9 kg 107.9 kg Intake: IV 1850 2300 0.9% NaCl with KCl 20 Meq 100 /l 1,000 ml @ 100 mls/hr IV .Q10H [facility] Rx#: [id number] 0.9% NaCl with KCl 20 Meq 1200 /l 1,000 ml @ 150 mls/hr IV .Q6H40M [facility] Rx#: [id number] Sodium Chloride 0.9% 2, 1000 000 ml @ 999 mls/hr IV . Q2H1M [facility] Rx#:[id number] Output: Urine 1150 500 Estimated Blood Loss 5 Other: Voiding Method Bedpan Toilet # Voids 3 - Labs CBC & Chem 7: 01/12/24 06:39 01/12/24 06:38
[2024-01-12] MEDS: MAGNESIUM SULFATE-D5W PMX 1 GM in DEXTROSE/WATER 1 100ML.BAG IVPB SCH (17:13)
[2024-01-12] MEDS: SODIUM CHLORIDE 0.9% 1,000 ML IV ONE (17:13)
[2024-01-13] MEDS: TAMSULOSIN 0.4 MG CAP.ER.24H PO SCH (09:29)
[2024-01-13 11:13] LABS: BUN/Creat Ratio 19.67 Ratio (12.00-20.00); Blood Urea Nitrogen 11.8 mg/dL (9.0-27.0); Calcium 8.6 mg/dL (8.7-10.3); Carbon Dioxide 26.3 mmol/L (21.6-31.8); Chloride 97 mmol/L (96-109); Glucose 123 mg/dL (70-110); Potassium 3.9 mmol/L (3.5-5.5); Sodium 134 mmol/L (135-145)
[2024-01-13 11:38] LABS: Basophils # (A) 0.01 X 10*3/uL (0.00-0.10); Basophils % (A) 0.1 %; Eosinophils # (A) 0 X 10*3/uL (0.04-0.35); Eosinophils % (A) 0 %; HCT 36.8 % (37.2-46.3); HGB 12.4 g/dL (12.0-15.0); Lymphocytes % (A) 5.1 %; MCH 31.1 pg (27.0-32.0); MCHC 33.7 g/dL (32.0-37.0); MCV 92.2 FL (80.0-97.0); Mean Platelet Volume 10.4 FL (9.5-12.2); Monocytes # (A) 0.27 X 10*3/uL (0.20-1.00); Monocytes % (A) 2.3 %; NRBC Per 100 WBC 0 X 10*3/uL (0.00-0.01); Neutrophils # (A) 10.81 X 10*3/uL (1.80-7.70); Neutrophils % (A) 91.8 %; Platelet Count 258 X 10*3/uL (140-440); RBC 3.99 X 10*6/uL (4.10-5.20); RBC Morphology Normal (Normal); RDW 14.3 % (11.5-14.5); WBC 11.77 X 10*3/uL (4.50-10.00)
--- NOTE | 2024-01-13 14:00 | P.PN ---
Subjective Progress Note Date: 01/13/24 CHIEF COMPLAINT: Morbid obesity HISTORY OF PRESENT ILLNESS: Patient having issues with urinary retention required to have Camejo catheter placed. Patient still using TAX REPRESENTATIVE pump for pain control. She reports some abdominal cramping across the lower abdomen. She is having flatus. She is tolerating liquids. Afebrile. Blood pressure improved with fluid bolus WBC is down from 14-11 magnesium 1.4 up to 2.0 potassium 3.9 PHYSICAL EXAM: VITAL SIGNS: Reviewed GENERAL: Well-developed in no acute distress. HEENT: No sclera icterus. Extraocular movements grossly intact. Moist buccal mucosa. Head is atraumatic, normocephalic. Hears conversational speech. No nasal drainage. NECK: Supple without lymphadenopathy. CHEST: Non-labored respirations and equal bilateral excursions. CARDIOVASCULAR: Palpable 2+ radial pulses. ABDOMEN: Soft. Nondistended. Mild tenderness at incision sites incision sites clean dry and intact MUSCULOSKELETAL: No clubbing or cyanosis. NEUROLOGIC: No focal or lateralizing signs. Cranial nerves II through XII grossly intact. PSYCH: Appropriate affect. Alert and oriented to person, place and time. SKIN: Well perfused. Good skin turgor. ASSESSMENT: 1. Morbid obesity due to excess calories, BMI 41.3 2. Hypertensive heart disease 3. Hypothyroidism. 4. Depression. 5. Vitamin B12 deficiency. 6. Vitamin D deficiency. 7. Anxiety. 8. Fibromyalgia. 9. Osteoarthritis. 10. Bladder urgency. 11. Spinal stenosis 12. Lupus 13. Complications of adjustable gastric band 14. Hypokalemia and hypomagnesemia 15. history of Sojourn's PLAN: -Consult urology for urinary retention -Continue Camejo catheter -Flomax added -Adjusting pain management. Discontinue TAX REPRESENTATIVE pump. Placed oral Tylenol scheduled Flexeril 10 mg every 8 hours scheduled -Continue bariatric clear liquid diet -Continue IV fluids -Anticipate discharge tomorrow -Encourage patient to increase activity level -Continue abdominal binder and ice as needed -DVT prophylaxis subcu heparin Physician Tube Maker note has been reviewed by physician. Signing provider agrees with the documented findings, assessment, and plan of care. Objective - Vital Signs Vital signs: Vital Signs Temp 98.0 F 01/13/24 08:00 Pulse 82 01/13/24 12:25 Resp 18 01/13/24 02:16 BP 118/73 01/13/24 08:00 Pulse Ox 97 02/21/24 08:00 FiO2 Intake & Output 01/12/24 01/13/24 01/13/24 18:59 06:59 18:59 Intake Total 100 Output Total 2500 550 Balance -2400 -550 Weight 107.9 kg Intake: Oral 100 Output: Urine 2500 550 Straight 1000 Other: Voiding Method Toilet Indwelling Catheter - Labs CBC & Chem 7: 01/13/24 06:04 01/13/24 06:04 Labs: Abnormal Lab Results - Last 24 Hours (Table) 01/12/24 01/12/24 01/13/24 Range/Units 06:38 06:39 06:04 WBC 14.05 H 11.77 H (4.50-10.00) X 10*3/uL RBC 3.99 L (4.10-5.20) X 10*6/uL Hct 36.8 L (37.2-46.3) % Immature Gran # 0.06 H 0.08 H (0.00-0.04) X 10*3/uL Neutrophils # 13.03 H 10.81 H (1.80-7.70) X 10*3/uL Lymphocytes # 0.47 L 0.60 L (0.90-5.00) X 10*3/uL Eosinophils # 0 L 0 L (0.04-0.35) X 10*3/uL Sodium (135-145) mmol/L Anion Gap 12.60 H (4.00-12.00) mmol/L Glucose (70-110) mg/dL Calcium 8.6 L (8.7-10.3) mg/dL Magnesium 1.4 L (1.5-2.4) mg/dL 01/13/24 Range/Units 06:04 WBC (4.50-10.00) X 10*3/uL RBC (4.10-5.20) X 10*6/uL Hct (37.2-46.3) % Immature Gran # (0.00-0.04) X 10*3/uL Neutrophils # (1.80-7.70) X 10*3/uL Lymphocytes # (0.90-5.00) X 10*3/uL Eosinophils # (0.04-0.35) X 10*3/uL Sodium 134 L (135-145) mmol/L Anion Gap (4.00-12.00) mmol/L Glucose 123 H (70-110) mg/dL Calcium 8.6 L (8.7-10.3) mg/dL Magnesium (1.5-2.4) mg/dL
[2024-01-13] MEDS: ACETAMINOPHEN TAB 500 MG TAB PO SCH (14:12)
[2024-01-13] MEDS: CYCLOBENZAPRINE 10 MG TAB PO SCH (14:12)
[2024-01-14 07:53] VITALS: BP 115/59; RESP 18; TEMP 98.8
--- NOTE | 2024-01-14 10:10 | P.GSCN ---
History of Present Illness Consult date: 01/14/24 Reason for Consult: Urinary retention Requesting physician: Emma Grayson History of present illness: The patient is a 68-year-old white female well-known to Dr. Jiang. She underwent Robotic assisted da Jose Xi laparoscopic Taylor-en-Y gastric bypass with intraoperative esophagogastrojejunoscopy on January 11, 2024. She has been found to have postoperative urinary retention, with postvoid residuals of 500 to 600 cc. The patient states that she underwent a sling more than 10 years ago, likely a TOT sling. She experienced some persistent voiding dysfunction, which sounds like an overactive bladder. However, more recently, she has experienced a weak urinary stream that she describes as a trickle, and voids e very 1-2 hours. She has also experienced urinary urge incontinence, and had intended to contact Dr. Jiang for reevaluation. Review of Systems - Cardiovascular Reports high blood pressure - Genitourinary Genitourinary: Reports as per HPI Past Medical History Past Medical History: Fibromyalgia, GERD/Reflux, Hyperlipidemia, Hypertension, Musculoskeletal Disorder, Osteoarthritis (OA), Thyroid Disorder Additional Past Medical History / Comment(s): "SOB from lack of activity and gaining weight, checked out by [employer] - everything ok". CHRONIC LOWER BACK PAIN, problems with discs in back and neck. IBS. Sjogren's-dry painful mouth, nose, eyes History of Any Multi-Drug Resistant Organisms: None Reported Past Surgical History: Bariatric Surgery, Bladder Surgery, Breast Surgery, Heart Catheterization, Joint Replacement, Tonsillectomy Additional Past Surgical History / Comment(s): Lap band insertion and eventual replacement, bladder sling, bilat. breast reduction, eyelid surgery, lap band removal 07-04-19, right hip replacement. gastric bypass 01-11-24 Past Anesthesia/Blood Transfusion Reactions: Motion Sickness, No Reported React ion Past Psychological History: Anxiety, Depression, Panic Disorder Additional Psychological History / Comment(s): panic disorder hx. Smoking Status: Never smoker Past Alcohol Use History: None Reported Past Drug Use History: None Reported - Past Family History Mother Family Medical History: Diabetes Mellitus, Hypertension Additional Family Medical History / Comment(s): OBESITY, NEUROPATHY-EVENTALLY IN W/C -COULDN'T FEEL FEET. Father Family Medical History: No Reported History Additional Family Medical History / Comment(s): AGE 92-JUST DROVE UP FROM [place] FOR GRANDSON'S Medications and Allergies Home Medications Medication Instructions Recorded Confirmed Type Levothyroxine Sodium [Synthroid] 112 mcg PO QAM 01/01/16 01/11/24 History Lisinopril-Hctz 20-25 mg 1 tab PO QAM 01/01/16 01/11/24 History [Zestoretic 20-25] Multivitamins, Thera [Multivitamin 1 tab PO DAILY 01/01/16 01/11/24 History (formulary)] Desvenlafaxine Succinate [Pristiq] 100 mg PO QAM 03/23/19 01/11/24 History Calcium Carbonate [Calcium] 1,200 mg PO DAILY 12/06/19 01/11/24 History Cyanocobalamin (Vitamin B-12) 1,000 mcg PO DAILY 01/23/21 01/11/24 History [Vitamin B-12] ALPRAZolam [Xanax] 0.5 mg PO HS 12/04/22 01/05/24 History Aspirin 81 mg PO DAILY 12/04/22 01/05/24 History Atorvastatin [Lipitor] 40 mg PO QAM 12/04/22 01/05/24 History Cholecalciferol [Vitamin D3 (25 125 mcg PO DAILY 12/04/22 01/11/24 History Mcg = 1000 Iu)] Sucralfate [Carafate] 1 gm PO BID #60 tablet 07/22/23 01/11/24 Rx ALPRAZolam [Xanax] 0.5 mg PO BID 01/11/24 01/11/24 History Allergies Allergy/AdvReac Type Severity Reaction Status Date / Time codeine AdvReac Unknown Headache Verified 01/11/24 08:08 hydrocodone [From [place]] AdvReac Unknown FELT Verified 01/11/24 08:08 SPACEY, NO CONTROL- DOES NOT WANT. Surgical - Exam Vital Signs Temp Pulse Resp BP Pulse Ox 97.2 F L 88 14 113/68 92 L 01/11/24 08:15 01/11/24 08:15 01/11/24 08:15 01/11/24 08:15 01/11/24 08:15 - General well developed, well nourished, no distress - Respiratory normal respiratory effort - Psychiatric oriented to time, oriented to person, oriented to place, speech is normal, memory intact Results - Labs 01/13/24 06:04 01/13/24 06:04 Abnormal Lab Results - Last 24 Hours (Table) 01/13/24 01/13/24 Range/Units 06:04 06:04 WBC 11.77 H (4.50-10.00) X 10*3/uL RBC 3.99 L (4.10-5.20) X 10*6/uL Hct 36.8 L (37.2-46.3) % Immature Gran # 0.08 H (0.00-0.04) X 10*3/uL Neutrophils # 10.81 H (1.80-7.70) X 10*3/uL Lymphocytes # 0.60 L (0.90-5.00) X 10*3/uL Eosinophils # 0 L (0.04-0.35) X 10*3/uL Sodium 134 L (135-145) mmol/L Glucose 123 H (70-110) mg/dL Calcium 8.6 L (8.7-10.3) mg/dL Diabetes panel 01/13/24 Range/Units 06:04 Sodium 134 L (135-145) mmol/L Potassium 3.9 (3.5-5.5) mmol/L Chloride 97 (96-109) mmol/L Carbon Dioxide 26.3 (21.6-31.8) mmol/L BUN 11.8 (9.0-27.0) mg/dL Creatinine 0.6 (0.6-1.5) mg/dL Glucose 123 H (70-110) mg/dL Calcium 8.6 L (8.7-10.3) mg/dL Calcium panel 01/13/24 Range/Units 06:04 Calcium 8.6 L (8.7-10.3) mg/dL Pituitary panel 01/13/24 Range/Units 06:04 Sodium 134 L (135-145) mmol/L Potassium 3.9 (3.5-5.5) mmol/L Chloride 97 (96-109) mmol/L Carbon Dioxide 26.3 (21.6-31.8) mmol/L BUN 11.8 (9.0-27.0) mg/dL Creatinine 0.6 (0.6-1.5) mg/dL Glucose 123 H (70-110) mg/dL Calcium 8.6 L (8.7-10.3) mg/dL Adrenal panel 01/13/24 Range/Units 06:04 Sodium 134 L (135-145) mmol/L Potassium 3.9 (3.5-5.5) mmol/L Chloride 97 (96-109) mmol/L Carbon Dioxide 26.3 (21.6-31.8) mmol/L BUN 11.8 (9.0-27.0) mg/dL Creatinine 0.6 (0.6-1.5) mg/dL Glucose 123 H (70-110) mg/dL Calcium 8.6 L (8.7-10.3) mg/dL Assessment and Plan (1) Retention of urine, unspecified Current Visit: Yes Status: Acute Code(s): R33.9 - RETENTION OF URINE, UNSPECIFIED SNOMED Code(s): 837788886 Plan: Given that the patient was experiencing voiding dysfunction preoperatively, I have recommended that she be discharged home with a Camejo catheter and follow-up with Dr. Jiang as an outpatient for evaluation.
[2024-01-14 10:47] LABS: Basophils # (A) 0.01 X 10*3/uL (0.00-0.10); Basophils % (A) 0.1 %; Eosinophils # (A) 0 X 10*3/uL (0.04-0.35); Eosinophils % (A) 0 %; HCT 37.7 % (37.2-46.3); HGB 12.7 g/dL (12.0-15.0); Lymphocytes # (A) 0.74 X 10*3/uL (0.90-5.00); Lymphocytes % (A) 8.4 %; MCH 30.8 pg (27.0-32.0); MCHC 33.7 g/dL (32.0-37.0); MCV 91.5 FL (80.0-97.0); Mean Platelet Volume 10.1 FL (9.5-12.2); Monocytes # (A) 0.36 X 10*3/uL (0.20-1.00); Monocytes % (A) 4.1 %; NRBC Per 100 WBC 0 X 10*3/uL (0.00-0.01); Neutrophils # (A) 7.59 X 10*3/uL (1.80-7.70); Neutrophils % (A) 86.6 %; Platelet Count 257 X 10*3/uL (140-440); RBC 4.12 X 10*6/uL (4.10-5.20); RDW 14.3 % (11.5-14.5); WBC 8.77 X 10*3/uL (4.50-10.00)
[2024-01-14 11:03] LABS: BUN/Creat Ratio 22.83 Ratio (12.00-20.00); Blood Urea Nitrogen 13.7 mg/dL (9.0-27.0); Calcium 8.8 mg/dL (8.7-10.3); Carbon Dioxide 27.4 mmol/L (21.6-31.8); Chloride 98 mmol/L (96-109); Glucose 127 mg/dL (70-110); Potassium 4.4 mmol/L (3.5-5.5); Sodium 134 mmol/L (135-145)
--- NOTE | 2024-01-14 11:17 | P.DS ---
Providers Date of admission: 01/11/24 07:50 Expected date of discharge: 01/14/24 Attending physician: Shaina Lima Consults: 01/13/24 08:51 Consult Physician Routine Consulting Provider: Yoni Jiang Consult Reason/Comments: urinary retention Do you want consulting provider notified?: Yes Primary care physician: [facility] Course: Discharge diagnosis 1. Morbid obesity due to excess calories, BMI 41.3 2. Hypertensive heart disease 3. Hypothyroidism. 4. Depression. 5. Vitamin B12 deficiency. 6. Vitamin D deficiency. 7. Anxiety. 8. Fibromyalgia. 9. Osteoarthritis. 10. Bladder urgency. 11. Spinal stenosis 12. Lupus 13. Complications of adjustable gastric band 14. Hypokalemia and hypomagnesemia improved 15. history of Sojourn's 16. Urinary retention Hospital course This is a 68-year-old female with known history of morbid obesity. She is status post robotic assisted laparoscopic Taylor-en-Y gastric bypass. Patient is tolerating diet. Upper GI shows no evidence of leak or obstruction. She is having flatus. She has been up and ambulating. Her pain is controlled. She is afebrile. She did have urinary retention evaluated by urology and they are recommending discharge home with Camejo catheter. Patient is stable for discharge. Physician Dessert Cup Machine Feeder note has been reviewed by physician. Signing provider agrees with the documented findings, assessment, and plan of care. Patient Condition at Discharge: Stable Plan - Discharge Summary Discharge Rx Participant: Yes New Discharge Prescriptions: New Ondansetron Odt [Zofran Odt] 4 mg PO Q8HR PRN #9 tab PRN Reason: Nausea bisacodyL [Dulcolax] 5 mg PO DAILY PRN #10 tab PRN Reason: Constipation Cyclobenzaprine [Flexeril] 5 mg PO TID PRN #9 tablet PRN Reason: Pain Simethicone 40 mg/0.6 ml Drops [Mylicon Drops] 40 mg PO PCHS PRN #30 ml PRN Reason: Gas Omeprazole [PriLOSEC] 40 mg PO DAILY #30 cap Acetaminophen Tab [Tylenol] 1,000 mg PO Q6HR PRN #30 tablet PRN Reason: Pain Continue Levothyroxine Sodium [Synthroid] 112 mcg PO QAM Desvenlafaxine Succinate [Pristiq] 100 mg PO QAM ALPRAZolam [Xanax] 0.5 mg PO HS Sucralfate [Carafate] 1 gm PO BID #60 tablet ALPRAZolam [Xanax] 0.5 mg PO BID Discontinued Multivitamins, Thera [Multivitamin (formulary)] 1 tab PO DAILY Lisinopril-Hctz 20-25 mg [Zestoretic 20-25] 1 tab PO QAM Calcium Carbonate [Calcium] 1,200 mg PO DAILY Cyanocobalamin (Vitamin B-12) [Vitamin B-12] 1,000 mcg PO DAILY Aspirin 81 mg PO DAILY Atorvastatin [Lipitor] 40 mg PO QAM Cholecalciferol [Vitamin D3 (25 Mcg = 1000 Iu)] 125 mcg PO DAILY Discharge Medication List Levothyroxine Sodium [Synthroid] 112 mcg PO QAM 01/01/16 [History] Desvenlafaxine Succinate [Pristiq] 100 mg PO QAM 03/23/19 [History] ALPRAZolam [Xanax] 0.5 mg PO HS 12/04/22 [History] Sucralfate [Carafate] 1 gm PO BID #60 tablet 07/22/23 [Rx] ALPRAZolam [Xanax] 0.5 mg PO BID 01/11/24 [History] Acetaminophen Tab [Tylenol] 1,000 mg PO Q6HR PRN #30 tablet 01/14/24 [Rx] Cyclobenzaprine [Flexeril] 5 mg PO TID PRN #9 tablet 01/14/24 [Rx] Omeprazole [PriLOSEC] 40 mg PO DAILY #30 cap 01/14/24 [Rx] Ondansetron Odt [Zofran Odt] 4 mg PO Q8HR PRN #9 tab 01/14/24 [Rx] Simethicone 40 mg/0.6 ml Drops [Mylicon Drops] 40 mg PO PCHS PRN #30 ml 01/14/24 [Rx] bisacodyL [Dulcolax] 5 mg PO DAILY PRN #10 tab 01/14/24 [Rx] Follow up [facility]ment(s[place] [facility] - 01/15/24 9:00 am Yoni Jiang MD [STAFF PHYSICIAN] - 1 Week [facility] Visiting Nurse, [NON-STAFF] - As Needed Activity/Diet/Wound Care/Special Instructions: Liquid diet only for 2 weeks No lifting over 4 pounds in 4 weeks, Oct 28March Shower. No soaking in bath tubs for 2 weeks Please notify your surgeon if you develop nausea and vomiting including new onset of abdominal pain. Continue to use incentive spirometry to prevent pneumonias. Please continue to ambulate at home to prevent blood clots in legs. Follow-up at the bariatric center. March shower. Dressings to be discontinued by surgeon in the office. Drink 64 oz of fluid daily. Start protein shakes on . Notify bariatric center for temp over 101.0, increased pain, drainage from incisions. No straws or carbonated beverages. Liquid diet only. Sugar content should be less than 6 g to avoid dumping syndrome. Take MOM for constipation. CRUSH, OPEN, OR CUT TABLETS LARGER THAN A SIZE OF A TIC TAC Do not take Lipitor, multivitamins or supplements due to increased bleeding risk after surgery Hold on taking Zestoretic due to increased dehydration after surgery Discharged with Camejo catheter in place and follow-up with urology outpatient Discharge Disposition: HOME SELF-CARE
[2024-01-14 12:11] VITALS: PULSE 83
== END 2024-01-14 13:48 | disposition home or self-care (01) | DRG 621 ==
LOC: 2ORMAIN 01-11 07:50 → 4SSUR 01-11 16:57
PROVIDERS: ADMIT Surgery Plastic and Reconstructive Surgery; ATTEND Surgery Plastic and Reconstructive Surgery
PROC: 0DJ08ZZ Inspection of Upper Intestinal Tract, Via Natural or Artificial Opening Endoscopic (ICD-10-PCS; principal; 2024-01-11 09:30)
PROC: 0D164ZA Bypass Stomach to Jejunum, Percutaneous Endoscopic Approach (ICD-10-PCS; principal; 2024-01-11 09:30)
PROC: 8E0W4CZ Robotic Assisted Procedure of Trunk Region, Percutaneous Endoscopic Approach (ICD-10-PCS; principal; 2024-01-11 09:30)
DX: E66.01 Morbid (severe) obesity due to excess calories (principal); Z68.41 Body mass index [BMI] 40.0-44.9, adult; E03.9 Hypothyroidism, unspecified; E53.8 Deficiency of other specified B group vitamins; E55.9 Vitamin D deficiency, unspecified; E78.5 Hyperlipidemia, unspecified; E87.6 Hypokalemia; F32.A Depression, unspecified; G89.29 Other chronic pain; Z79.82 Long term (current) use of aspirin; K21.9 Gastro-esophageal reflux disease without esophagitis; F41.0 Panic disorder [episodic paroxysmal anxiety]; M32.9 Systemic lupus erythematosus, unspecified; I11.9 Hypertensive heart disease without heart failure; K76.0 Fatty (change of) liver, not elsewhere classified; K81.1 Chronic cholecystitis; M19.90 Unspecified osteoarthritis, unspecified site; M35.00 Sjogren syndrome, unspecified; M48.00 Spinal stenosis, site unspecified; M79.7 Fibromyalgia; N39.41 Urge incontinence; F17.200 Nicotine dependence, unspecified, uncomplicated; Z79.890 Hormone replacement therapy; Z82.49 Family history of ischemic heart disease and other diseases of the circulatory system; Z71.3 Dietary counseling and surveillance; Z88.5 Allergy status to narcotic agent; Z96.641 Presence of right artificial hip joint; K58.9 Irritable bowel syndrome, unspecified
CPT/HCPCS: 74240; 80048; 80051; 82310; 82565; 83735; 84100; 84520; 85025; 94640; 94760

== ENCOUNTER → 2024-01-05 | Outpatient (CLI) | payer MEDICARE ==
[2024-01-06 02:14] LABS: Basophils # (A) 0.06 X 10*3/uL (0.00-0.10); Basophils % (A) 0.5 %; Eosinophils # (A) 0.51 X 10*3/uL (0.04-0.35); Eosinophils % (A) 4.3 %; HCT 46.3 % (37.2-46.3); HGB 15.4 g/dL (12.0-15.0); Lymphocytes # (A) 2.37 X 10*3/uL (0.90-5.00); Lymphocytes % (A) 20.2 %; MCH 30.6 pg (27.0-32.0); MCHC 33.3 g/dL (32.0-37.0); Mean Platelet Volume 10.9 FL (9.5-12.2); Monocytes % (A) 6.8 %; NRBC Per 100 WBC 0 X 10*3/uL (0.00-0.01); Neutrophils # (A) 7.96 X 10*3/uL (1.80-7.70); Neutrophils % (A) 67.8 %; Platelet Count 372 X 10*3/uL (140-440); RBC 5.03 X 10*6/uL (4.10-5.20); WBC 11.75 X 10*3/uL (4.50-10.00)
[2024-01-06 02:40] LABS: ALT 56 U/L (8-44); AST 50 U/L (13-35); Albumin 4.5 g/dL (3.8-4.9); Albumin/Globulin Ratio 1.55 Ratio (1.60-3.17); Alkaline Phosphatase 84 U/L (41-126); Blood Urea Nitrogen 27.4 mg/dL (9.0-27.0); Calcium 10.5 mg/dL (8.7-10.3); Carbon Dioxide 24.9 mmol/L (21.6-31.8); Chloride 93 mmol/L (96-109); Globulin 2.9 g/dL (1.6-3.3); Glucose 104 mg/dL (70-110); Potassium 3.6 mmol/L (3.5-5.5); Sodium 136 mmol/L (135-145); Total Bilirubin 0.5 mg/dL (0.3-1.2); Total Protein 7.4 g/dL (6.2-8.2)
== END | disposition home or self-care (01) ==
LOC: LABPAT 15:39
PROVIDERS: ATTEND Surgery Plastic and Reconstructive Surgery
DX: Z01.812 Encounter for preprocedural laboratory examination (principal)
CPT/HCPCS: 36415; 80053; 85025; 86850; 86900; 86901

== ENCOUNTER → 2024-01-20 | Outpatient (CLI) | payer MEDICARE ==
[2024-01-20 15:55] VITALS: BP 133/77; PULSE 87; TEMP 98.4; BMI 39.4
--- NOTE | 2024-01-20 16:09 | P.BASOAP ---
Subjective Progress Note Date: 01/20/24 She has urinary retention. Has tellez. Flexeril for pain. Schogrens disease reviewed. Has medications. NO infection. Has pain as expected. Diarrhea from whey protein. Binder placed. Objective - Vital Signs Vital signs: Vital Signs Temp 98.4 F 01/20/24 15:21 Pulse 87 01/20/24 15:21 Resp BP 133/77 01/20/24 15:21 Pulse Ox FiO2 Intake & Output 01/19/24 01/20/24 01/20/24 18:59 06:59 18:59 Weight 109.316 kg Assessment/Plan Plan: Date: 01/20/24 Initial Weight: 111.13 kg Initial BMI: 40.1 Current Weight: 109.316 kg Current BMI: 39.4 Type of Surgery: Total Volume in Band: 0 Previous Volume: Volume Removed: Volume Added: Band Size:
== END ==
LOC: BARWHC3 14:54
PROVIDERS: ATTEND Surgery Plastic and Reconstructive Surgery
DX: Z53.9 Procedure and treatment not carried out, unspecified reason (principal)
CPT/HCPCS: 97803; G0463; 99211

== ENCOUNTER → 2024-02-10 | Outpatient (CLI) | payer MEDICARE ==
--- NOTE | 2024-02-10 15:42 | P.BASOAP ---
Subjective Progress Note Date: 02/10/24 Lost 30 pounds in 3 months. NO reflux. Doing well. Needs additional 30 grams protein daily. Needs more protein. Has nausea with protein shakes. Needs labs. Assessment/Plan Plan: Date: Initial Weight: 111.13 kg Initial BMI: Current Weight: Current BMI: Type of Surgery: Total Volume in Band: 0 Previous Volume: Volume Removed: Volume Added: Band Size:
[2024-02-10 16:52] VITALS: BP 113/75; PULSE 91; RESP 16; TEMP 97.8; BMI 36.2
[2024-02-10 17:05] LABS: Partial Thromboplastin Time 28.9 sec (22.0-30.0); Prothrombin Time 11.3 sec (10.0-12.5)
[2024-02-11 01:36] LABS: HCT 45.5 % (37.2-46.3); HGB 15.2 g/dL (12.0-15.0); MCH 30.7 pg (27.0-32.0); MCHC 33.4 g/dL (32.0-37.0); MCV 91.9 FL (80.0-97.0); Mean Platelet Volume 10.7 FL (9.5-12.2); NRBC Per 100 WBC 0 X 10*3/uL (0.00-0.01); Platelet Count 439 X 10*3/uL (140-440); RBC 4.95 X 10*6/uL (4.10-5.20); RDW 14.3 % (11.5-14.5); WBC 9.97 X 10*3/uL (4.50-10.00)
[2024-02-11 03:32] LABS: % Iron Saturation 14.74 (12.00-45.00); ALT 43 U/L (8-44); AST 37 U/L (13-35); Albumin 4.4 g/dL (3.8-4.9); Albumin/Globulin Ratio 1.57 Ratio (1.60-3.17); Alkaline Phosphatase 95 U/L (41-126); BUN/Creat Ratio 18.31 Ratio (12.00-20.00); Blood Urea Nitrogen 23.8 mg/dL (9.0-27.0); Calcium 10.9 mg/dL (8.7-10.3); Carbon Dioxide 24.9 mmol/L (21.6-31.8); Chloride 89 mmol/L (96-109); Chol/HDL Ratio 7.08 Ratio; Globulin 2.8 g/dL (1.6-3.3); Glucose 110 mg/dL (70-110); Iron 46 UG/DL (50-170); LDL Cholesterol,Calculated 172.7 mg/dL (0.0-131.0); Magnesium 1.1 mg/dL (1.5-2.4); Phosphorus 1.9 mg/dL (2.4-5.1); Potassium 3.5 mmol/L (3.5-5.5); Sodium 136 mmol/L (135-145); Total Bilirubin 0.5 mg/dL (0.3-1.2); Total Iron Binding Capacity 312 UG/DL (228-460); Total Protein 7.2 g/dL (6.2-8.2)
[2024-02-11 04:03] LABS: Vitamin B12 >3600.0 pg/mL (200.0-944.0)
[2024-02-12 06:31] LABS: Vitamin A 46 ug/dL (38-106)
[2024-02-12 12:27] LABS: Vit B1(Thiamine) 48 ug/L (38-122)
[2024-02-15 07:33] LABS: Selenium 122 mcg/L (63-160)
== END ==
LOC: BARWHC3 13:49
PROVIDERS: ATTEND Surgery Plastic and Reconstructive Surgery
DX: E66.01 Morbid (severe) obesity due to excess calories (principal); D50.8 Other iron deficiency anemias; K90.89 Other intestinal malabsorption; K90.9 Intestinal malabsorption, unspecified; E55.9 Vitamin D deficiency, unspecified; K74.1 Hepatic sclerosis; N19 Unspecified kidney failure; T56.894A Toxic effect of other metals, undetermined, initial encounter; K50.90 Crohn's disease, unspecified, without complications; Z71.3 Dietary counseling and surveillance; Z88.5 Allergy status to narcotic agent; Z68.36 Body mass index [BMI] 36.0-36.9, adult
CPT/HCPCS: 84255; 84425; 80061; 80053; 82607; 82728; 82525; 82746; 83540; 83550; 83735; 84100; 84443; 84590; 85027; 85610; 85730; 82306; 83970; 83036; 97803; G0463; 99211

== ENCOUNTER 2024-02-12 14:09 | Observation (INO) | payer MEDICARE ==
--- NOTE | 2024-02-12 14:29 | ED ---
Recheck HPI - General Chief Complaint: Recheck/Abnormal Lab/Rx Stated Complaint: Abnormal labs Time Seen by Provider: 02/12/24 14:28 Source: patient, RN notes reviewed, old records reviewed Mode of arrival: wheelchair Limitations: no limitations - History of Present Illness Initial Comments: Patient is a 68-year-old female presenting to the ER with chief complaint of abnormal labs. Patient sent here by Dr. Lima's office. Patient states she underwent a gastric bypass by Dr. Lima for weight loss on 01/11/24. She states she has lost 25 pounds since then. She reports that she had a follow-up appointment on 02/10/24, and had lab work completed. Patient states she got a phone call this morning saying she did not come in for her IV infusion. She was sent to the ER for low electrolytes. Patient is unclear on exactly which one. She denies any chest pain, shortness of breath, fevers, chills, abdominal pain, constipation/diarrhea, urinary complaints or peripheral edema. - Related Data Home Medications Medication Instructions Recorded Confirmed Levothyroxine Sodium [Synthroid] 112 mcg PO AC-[id number] 01/01/16 02/12/24 Desvenlafaxine Succinate [Pristiq] 100 mg PO DAILY 03/23/19 02/12/24 ALPRAZolam [Xanax] 0.5 mg PO BID 01/11/24 02/12/24 Bariatric Multivitamin 1 tab PO DAILY 02/12/24 02/12/24 Escitalopram [Lexapro] 10 mg PO DAILY 02/12/24 02/12/24 Lisinopril/Hydrochlorothiazide 1 tab PO DAILY 02/12/24 02/12/24 [Zestoretic 20-25] Previous Rx's Medication Instructions Recorded Cyclobenzaprine [Flexeril] 5 mg PO TID PRN #9 tablet 01/14/24 Omeprazole [PriLOSEC] 40 mg PO DAILY #90 cap 02/10/24 Allergies Allergy/AdvReac Type Severity Reaction Status Date / Time codeine AdvReac Unknown Headache Verified 02/12/24 16:09 hydrocodone [From [place]] AdvReac Unknown FELT Verified 02/12/24 16:09 SPACEY, NO CONTROL- DOES NOT WANT. Review of Systems ROS Statement: Those systems with pertinent positive or pertinent negative responses have been documented in the HPI. ROS Other: All systems not noted in ROS Statement are negative. Past Medical History Past Medical History: Fibromyalgia, GERD/Reflux, Hyperlipidemia, Hypertension, Musculoskeletal Disorder, Osteoarthritis (OA), Thyroid Disorder Additional Past Medical History / Comment(s): "SOB from lack of activity and gaining weight, checked out by Electric Utility Lineworker - everything ok". CHRONIC LOWER BACK PAIN, problems with discs in back and neck. IBS. Sjogren's-dry painful mouth, nose, eyes History of Any Multi-Drug Resistant Organisms: None Reported Past Surgical History: Bariatric Surgery, Bladder Surgery, Breast Surgery, Heart Catheterization, Joint Replacement, Tonsillectomy Additional Past Surgical History / Comment(s): Lap band insertion and eventual replacement, bladder sling, bilat. breast reduction, eyelid surgery, lap band removal 07-04-19, right hip replacement. gastric bypass 01-11-24 Past Anesthesia/Blood Transfusion Reactions: Motion Sickness, No Reported Reaction Past Psychological History: Anxiety, Depression, Panic Disorder Smoking Status: Never smoker Past Alcohol Use History: None Reported Past Drug Use History: None Reported - Past Family History Mother Family Medical History: Diabetes Mellitus, Hypertension Additional Family Medical History / Comment(s): OBESITY, NEUROPATHY-EVENTALLY IN W/C -COULDN'T FEEL FEET. Father Family Medical History: No Reported History Additional Family Medical History / Comment(s): AGE 92-JUST DROVE UP FROM [place] FOR [employer] General Exam General appearance: alert, in no apparent distress Head exam: Present: atraumatic, normocephalic, normal inspection Eye exam: Present: normal appearance, PERRL, EOMI. Absent: scleral icterus, conjunctival injection, periorbital swelling Respiratory exam: Present: normal lung sounds bilaterally. Absent: respiratory distress, wheezes, rales, rhonchi, stridor Cardiovascular Exam: Present: regular rate, normal rhythm, normal heart sounds. Absent: systolic murmur, diastolic murmur, rubs, gallop, clicks GI/Abdominal exam: Present: soft, normal bowel sounds. Absent: distended, tenderness, guarding, rebound, rigid Neurological exam: Present: alert, oriented X3, CN II-XII intact Psychiatric exam: Present: normal affect, normal mood Skin exam: Present: warm, dry, intact, normal color. Absent: rash Course Vital Signs 02/12/24 02/12/24 14:13 15:38 Temperature 98 F Pulse Rate 98 86 Respiratory 18 16 Rate Blood Pressure 98/66 115/69 O2 Sat by Pulse 96 97 Oximetry Medical Decision Making - Medical Decision Making Was pt. sent in by a medical professional or institution (, PA, IN PROCESSING INSTRUCTOR, urgent care, hospital, or fpc...) When possible be specific @ -Patient was sent by Dr. Lima for IV magnesium. Did you speak to anyone other than the patient for history (EMS, parent, family, police, friend...)? What history was obtained from this source @ -No Did you review nursing and triage notes (agree or disagree)? Why? @ -I reviewed and agree with nursing and triage notes Were old charts reviewed (outside hosp., previous admission, EMS record, old EKG, old radiological studies, urgent care reports/EKG's, fpc records)? Report findings @ -No old charts were reviewed Differential Diagnosis (chest pain, altered mental status, abdominal pain women, abdominal pain men, vaginal bleeding, weakness, fever, dyspnea, syncope, headache, dizziness, GI bleed, back pain, seizure, CVA, palpatations, mental health, musculoskeletal)? @ -Hypokalemia, hyponatremia, hypomagnesemia, hypocalcemia, hyperkalemia, hyper natremia, hypermagnesemia, hypercalcemia systemic to be all-inclusive EKG interpreted by me (3pts min.). @ -As above X-rays interpreted by me (1pt min.). @ -None done CT interpreted by me (1pt min.). @ -None done U/S interpreted by me (1pt. min.). @ -None done What testing was considered but not performed or refused? (CT, X-rays, U/S, la bs)? Why? @ -None What meds were considered but not given or refused? Why? @ -None Did you discuss the management of the patient with other professionals (professionals i.e. , OZ, IN PROCESSING INSTRUCTOR, lab, RT, psych nurse, social work nurse, potato chip processing supervisor, teacher, patrol community service officer, ed case manager)? Give summary @ -Yes, case discussed with Dr. Lima who would like patient admitted for electrolyte replacement. Was smoking cessation discussed for >3mins.? @ -No Was critical care preformed (if so, how long)? @ -No Were there social determinants of health that impacted care today? How? (Homelessness, low income, unemployed, alcoholism, drug addiction, transportation, low edu. Level, literacy, decrease access to med. care, long term, rehab)? @ -No Was there de-escalation of care discussed even if they declined (Discuss DNR or withdrawal of care, Hospice)? DNR status @ -No What co-morbidities impacted this encounter? (DM, HTN, Smoking, COPD, CAD, Cancer, CVA, ARF, Chemo, Hep., AIDS, mental health diagnosis, sleep apnea, morbid obesity)? @ -None Was patient admitted / discharged? Hospital course, mention meds given and route, prescriptions, significant lab abnormalities, going to OR and other pertinent info. @ -Admitted. Patient is a 68-year-old female presented to the ER with a chief complaint of abnormal labs. Patient recently underwent gastric bypass by Dr. Lima in December 2023. Patient had routine labs completed in office 2 days ago and was found to have abnormal labs. Sent here for evaluation. History and physical exam completed. Vitals stable. Patient no signs of acute distress and nontoxic-appearing. Patient in no acute complaints. Labs obtained significant for magnesium 1.0, phosphorus 3.6, potassium 4.1. Patient had FERNY (BUN 30, creatinine 1.23). Patient started on IV magnesium replacement. Dr. Lima called and would like patient admitted for electrolyte replacement. Results discussed with patient, all questions answered. Patient agreeable for admission. Case discussed with ED attending, Dr. Morales. Undiagnosed new problem with uncertain prognosis? @ -No Drug Therapy requiring intensive monitoring for toxicity (Heparin, Nitro, Insulin, Cardizem)? @ -No Were any procedures done? @ -No Diagnosis/symptom? @ -Hypomagnesemia/FERNY Acute, or Chronic, or Acute on Chronic? @ -Acute Uncomplicated (without systemic symptoms) or Complicated (systemic symptoms)? @ -Uncomplicated Side effects of treatment? @ -No Exacerbation, Progression, or Severe Exacerbation? @ -No Poses a threat to life or bodily function? How? (Chest pain, USA, NM, pneumonia, PE, COPD, DKA, ARF, appy, cholecystitis, CVA, Diverticulitis, Homicidal, Suicidal, threat to staff... and all critical care pts) @ -Yes, can lead to cardiac arrhythmias which may be life threatening. - Lab Data Result diagrams: 02/12/24 14:35 02/12/24 14:35 Lab Results 02/12/24 02/12/24 02/12/24 Range/Units 14:35 14:35 14:35 WBC 9.8 (3.8-10.6) k/uL RBC 4.94 (3.80-5.40) m/uL Hgb 15.0 (11.4-16.0) gm/dL Hct 46.0 (34.0-46.0) % MCV 93.2 (80.0-100.0) fL MCH 30.3 (25.0-35.0) pg MCHC 32.6 (31.0-37.0) g/dL RDW 13.6 (11.5-15.5) % Plt Count 392 (150-450) k/uL MPV 7.9 Sodium 134 L (137-145) mmol/L Potassium 4.1 (3.5-5.1) mmol/L Chloride 95 L (98-107) mmol/L Carbon Dioxide 23 (22-30) mmol/L Anion Gap 16 mmol/L BUN 30 H (7-17) mg/dL Creatinine 1.23 H (0.52-1.04) mg/dL Est GFR (CKD-EPI)AfAm 52 (>60 ml/min/1.73 sqM) Est GFR (CKD-EPI)NonAf 45 (>60 ml/min/1.73 sqM) Glucose 105 H (74-99) mg/dL Plasma Lactic Acid Baltazar 1.8 (0.7-2.0) mmol/L Calcium 10.0 (8.4-10.2) mg/dL Phosphorus 3.6 (2.5-4.5) mg/dL Magnesium 1.0 L (1.6-2.3) mg/dL Total Bilirubin 1.0 (0.2-1.3) mg/dL AST 47 H (14-36) U/L ALT 35 H (4-34) U/L Alkaline Phosphatase 72 (38-126) U/L Total Protein 7.5 (6.3-8.2) g/dL Albumin 4.5 (3.5-5.0) g/dL - EKG Data -: EKG Interpreted by Me EKG Comments: EKG taken at 16: 06 significant for normal sinus rhythm with no acute ST segment or T wave abnormalities. Artifact in all leads. Ventricular rate 82, NM interval 192, QRS duration 87, QT/QTc 330/368. Disposition Clinical Impression: Hypomagnesemia, FERNY (acute kidney injury) Disposition: ADMITTED IP TO THIS HOSP Condition: Fair Referrals: Jeff Seals MD [Primary Care Provider] - 1-2 days Shaina Lima MD [STAFF PHYSICIAN] - 1-2 days Time of Disposition: 16:36
[2024-02-12 14:47] LABS: MCH 30.3 pg (25.0-35.0); MCHC 32.6 g/dL (31.0-37.0); MCV 93.2 fL (80.0-100.0); Mean Platelet Volume 7.9; Platelet Count 392 k/uL (150-450); RBC 4.94 m/uL (3.80-5.40); RDW 13.6 % (11.5-15.5); WBC 9.8 k/uL (3.8-10.6)
[2024-02-12 15:00] LABS: ALT 35 U/L (4-34); AST 47 U/L (14-36); African American GFR (CKD) 52 (>60 ml/min/1.73 sqM); Albumin 4.5 g/dL (3.5-5.0); Alkaline Phosphatase 72 U/L (38-126); Anion Gap 16 mmol/L; Blood Urea Nitrogen 30 mg/dL (7-17); Carbon Dioxide 23 mmol/L (22-30); Chloride 95 mmol/L (98-107); Glucose 105 mg/dL (74-99); Non-African American GFR(CKD) 45 (>60 ml/min/1.73 sqM); Phosphorus 3.6 mg/dL (2.5-4.5); Sodium 134 mmol/L (137-145); Total Protein 7.5 g/dL (6.3-8.2)
[2024-02-12 15:06] LABS: Potassium 4.1 mmol/L (3.5-5.1)
[2024-02-12] MEDS: MAGNESIUM SULFATE-D5W PMX 1 GM in DEXTROSE/WATER 1 100ML.BAG IVPB SCH (15:32)
[2024-02-12] MEDS ORDERED: ONDANSETRON 4 MG/2 ML VIAL IVP PRN (16:33)
[2024-02-12] MEDS ORDERED: NALOXONE 0.4 MG/ML 1 ML VIAL IV PRN (16:33)
[2024-02-12] MEDS ORDERED: ACETAMINOPHEN TAB 325 MG TAB PO PRN (16:33)
[2024-02-12] MEDS: SODIUM CHLORIDE 0.9% 2,000 ML IV STA (17:18)
[2024-02-12 18:31] LABS: ALT 33 U/L (4-34); AST 42 U/L (14-36); African American GFR (CKD) 64 (>60 ml/min/1.73 sqM); Albumin 3.8 g/dL (3.5-5.0); Alkaline Phosphatase 83 U/L (38-126); Anion Gap 12 mmol/L; Blood Urea Nitrogen 31 mg/dL (7-17); Calcium 9.2 mg/dL (8.4-10.2); Carbon Dioxide 27 mmol/L (22-30); Chloride 94 mmol/L (98-107); Glucose 112 mg/dL (74-99); Non-African American GFR(CKD) 56 (>60 ml/min/1.73 sqM); Sodium 133 mmol/L (137-145); Total Bilirubin 0.6 mg/dL (0.2-1.3); Total Protein 6.5 g/dL (6.3-8.2)
[2024-02-13] MEDS ORDERED: CYCLOBENZAPRINE 5 MG TAB PO PRN (07:58)
--- NOTE | 2024-02-13 07:58 | P.GSHP ---
History of Present Illness H&P Date: 02/12/24 CHIEF COMPLAINT: Hypomagnesia, severe nausea HISTORY OF PRESENT ILLNESS: Yesi Gastelum is a 68-year-old female status post conversion from gastric band to gastric bypass over 1 month ago. She presented with abnormal labs with severe hypomagnesia including symptomatic nausea and electrolyte dyscrasias. She also has low oral intake. She had passed dark stools for GI bleed which is now resolved. Patient presents to the hospital due to symptomatic hypomagnesia. She had recent outside labs demonstrating low magnesium 1.1, low phosphorus 1.6. PAST MEDICAL HISTORY: 1. Morbid obesity due to excess calories, BMI 41.3 2. Hypertension. 3. Hypothyroidism. 4. Depression. 5. Vitamin B12 deficiency. 6. Vitamin D deficiency. 7. Anxiety. 8. Fibromyalgia. 9. Osteoarthritis. 10. Bladder urgency. 11. Spinal stenosis 12. Lupus PAST SURGICAL HISTORY: 1. Adjustable gastric band placement. 2. Bladder sling operation. 3. Bilateral breast reduction. 4. Blepharoplasty. 5. Adjustable gastric band removal 6. Status post gastric bypass MEDICATIONS: Home Medications Medication Instructions Recorded Confirmed Levothyroxine Sodium [Synthroid] 112 mcg PO QAM 01/01/16 11/11/23 Lisinopril-Hctz 20-25 mg 1 tab PO QAM 01/01/16 11/11/23 [Zestoretic 20-25] Multivitamins, Thera [Multivitamin 1 tab PO DAILY 01/01/16 11/11/23 (formulary)] Desvenlafaxine Succinate [Pristiq] 100 mg PO QAM 03/23/19 11/11/23 Calcium Carbonate [Calcium] 1,200 mg PO DAILY 12/06/19 11/11/23 Cyanocobalamin (Vitamin B-12) 1,000 mcg PO DAILY 01/23/21 11/11/23 [Vitamin B-12] ALPRAZolam [Xanax] 0.5 mg PO HS 12/04/22 11/11/23 Aspirin 81 mg PO DAILY 12/04/22 11/11/23 Atorvastatin [Lipitor] 40 mg PO QAM 12/04/22 11/11/23 Cholecalciferol [Vitamin D3 (25 125 mcg PO DAILY 12/04/22 11/11/23 Mcg = 1000 Iu)] Previous Rx's Medication Instructions Recorded Sucralfate [Carafate] 1 gm PO BID #60 tablet 07/22/23 ALLERGIES: Allergies Allergy/AdvReac Type Severity Reaction Status Date / Time codeine AdvReac Unknown Headache Verified 07/13/23 08:38 hydrocodone [From [place]] AdvReac Unknown FELT Verified 07/13/23 08:38 SPACEY, NO CONTROL- DOES NOT WANT. SOCIAL HISTORY: Lifelong tobacco user. No reports of recent alcohol use. FAMILY HISTORY: Pertinent for diabetes, hypertension including neuropathy. REVIEW OF SYSTEMS: CONSTITUTIONAL: At her height of 5 foot 5.5 inches, her ideal body weight is 149 pounds. Her highest weight was 252 pounds. Her body mass index was 41.3 ENDOCRINE: History of hypothyroidism. No reports of diabetes. GASTROINTESTINAL: Denies the any moderate gastroesophageal reflux disease. MUSCULOSKELETAL: Reports osteoarthritis, including for fibromyalgia. NEURO: Reports neuropathy of the bilateral lower extremities including intentional tremors. PSYCH: History of depression including anxiety. HEMATOLOGIC: No reports of easy bruising or bleeding. HEENT: Denies any trouble with vision, hearing or nosebleeds. Has difficulty swallowing. LYMPHATIC: The patient denies any lumps and bumps around the neck. CARDIOVASCULAR: Denies any chest pain, palpitations, or recent heart attacks. Has hypertensive heart disease. GENITOURINARY: Denies any blood in urine or increased urinary frequency. SKIN: No cancer. No current rash. RHEUMATIC: Sjogrens disease. Has lupus PHYSICAL EXAM: VITAL SIGNS: 5 foot 5.5 inches, 252 pounds. Body mass index 41.3 GENERAL: Well-developed female in no acute distress. HEENT: No scleral icterus. Extraocular muscles grossly intact. Moist buccal mucosa. NECK: Supple without lymphadenopathy. CHEST: Nonlabored respirations with equal bilateral excursions. CARDIOVASCULAR: Distal pulses 2+. ABDOMEN: Obese, soft. Palpable lap band port left upper quadrant. MUSCULOSKELETAL: No clubbing, cyanosis, or edema. NEURO: No focal or lateralizing signs. Intentional tremors noted. Cranial nerves II through XII grossly within normal limits. PSYCH: Flat affect. Alert and oriented to person, place and time. SKIN: Well perfused. Good skin turgor. LABS: Reviewed. Magnesium 1.0. Creatinine elevated from recent hospitalization consistent with dehydration. ASSESSMENT: 1. Hypomagnesia, symptomatic 2. Hypophosphatemia 3. Intractable nausea with dehydration 4. Esophageal reflux disease with esophageal dysmotility 5. Sjogren's disease 6. Vitamin D deficiency. 7. Anxiety. 8. Fibromyalgia. 9. Osteoarthritis. 10. Bladder urgency. 11. Spinal stenosis 12. Lupus 13. Complications of adjustable gastric band 14. Status post gastric bypass 15. Morbid obesity due to excess calories, BMI 37.4 16. Hypertensive heart disease 17. Hypothyroidism. 18. Depression. PLAN: 1. Risk factors for recalcitrant hypomagnesia includes chronic proton pump inhibitor use. Discontinuing all proton pump inhibitors described 2. Correction magnesium of 4 g magnesium sulfate IV. Aggressive correction with repeat advised due to risk of cardiac abnormality and pre-existing heart disease 3. IV fluid hydration, 2 L normal saline 4. Carafate for GI protectant 5. Recommend admission for correction of electrolyte dyscrasias and symptoms with repeat labs Past Medical History Past Medical History: Fibromyalgia, GERD/Reflux, Hyperlipidemia, Hypertension, Musculoskeletal Disorder, Osteoarthritis (OA), Thyroid Disorder Additional Past Medical History / Comment(s): "SOB from lack of activity and gaining weight, checked out by [employer] - everything ok". CHRONIC LOWER BACK PAIN, problems with discs in back and neck. IBS. Sjogren's-dry painful mouth, nose, eyes History of Any Multi-Drug Resistant Organisms: None Reported Past Surgical History: Bariatric Surgery, Bladder Surgery, Breast Surgery, Heart Catheterization, Joint Replacement, Tonsillectomy Additional Past Surgical History / Comment(s): Lap band insertion and eventual replacement, bladder sling, bilat. breast reduction, eyelid surgery, lap band removal 07-04-19, right hip replacement. gastric bypass 01-11-24, D&C's x2 Past Anesthesia/Blood Transfusion Reactions: Motion Sickness, No Reported Reaction Past Psychological History: Anxiety, Depression, Panic Disorder Additional Psychological History / Comment(s): panic disorder hx. Smoking Status: Never smoker Past Alcohol Use History: None Reported Past Drug Use History: None Reported - Past Family History Mother Family Medical History: Diabetes Mellitus, Hypertension Additional Family Medical History / Comment(s): OBESITY, NEUROPATHY-EVENTALLY IN W/C -COULDN'T FEEL FEET. Father Family Medical History: No Reported History Additional Family Medical History / Comment(s): AGE 92-JUST DROVE UP FROM [place] FOR GRANDSON'S Medications and Allergies Home Medications Medication Instructions Recorded Confirmed Type Levothyroxine Sodium [Synthroid] 112 mcg PO AC-BRKFST 01/01/16 02/12/24 History Desvenlafaxine Succinate [Pristiq] 100 mg PO DAILY 03/23/19 02/12/24 History ALPRAZolam [Xanax] 0.5 mg PO BID 01/11/24 02/12/24 History Cyclobenzaprine [Flexeril] 5 mg PO TID PRN #9 tablet 01/14/24 02/12/24 Rx Omeprazole [PriLOSEC] 40 mg PO DAILY #90 cap 02/10/24 02/12/24 Rx Bariatric Multivitamin 1 tab PO DAILY 02/12/24 02/12/24 History Escitalopram [Lexapro] 10 mg PO DAILY 02/12/24 02/12/24 History Lisinopril/Hydrochlorothiazide 1 tab PO DAILY 02/12/24 02/12/24 History [Zestoretic ] Allergies Allergy/AdvReac Type Severity Reaction Status Date / Time codeine AdvReac Unknown Headache Verified 02/12/24 16:09 hydrocodone [From [place]] AdvReac Unknown FELT Verified 02/12/24 16:09 SPACEY, NO CONTROL- DOES NOT WANT. Surgical - Exam Vital Signs Temp Pulse Resp BP Pulse Ox 98 F 98 18 98/66 96 02/12/24 14:13 02/12/24 14:13 02/12/24 14:13 02/12/24 14:13 02/12/24 14:13 Results - Labs 02/12/24 14:35 02/12/24 17:46 Abnormal Lab Results - Last 24 Hours (Table) 02/12/24 02/12/24 Range/Units 14:35 17:46 Sodium 134 L 133 L (137-145) mmol/L Potassium 3.0 L (3.5-5.1) mmol/L Chloride 95 L 94 L (98-107) mmol/L BUN 30 H 31 H (7-17) mg/dL Creatinine 1.23 H (0.52-1.04) mg/dL Glucose 105 H 112 H (74-99) mg/dL Magnesium 1.0 L (1.6-2.3) mg/dL AST 47 H 42 H (14-36) U/L ALT 35 H (4-34) U/L Diabetes panel 02/12/24 02/12/24 Range/Units 14:35 17:46 Sodium 134 L 133 L (137-145) mmol/L Potassium 4.1 3.0 L (3.5-5.1) mmol/L Chloride 95 L 94 L (98-107) mmol/L Carbon Dioxide 23 27 (22-30) mmol/L BUN 30 H 31 H (7-17) mg/dL Creatinine 1.23 H 1.04 (0.52-1.04) mg/dL Glucose 105 H 112 H (74-99) mg/dL Calcium 10.0 9.2 (8.4-10.2) mg/dL AST 47 H 42 H (14-36) U/L ALT 35 H 33 (4-34) U/L Alkaline Phosphatase 72 83 (38-126) U/L Total Protein 7.5 6.5 (6.3-8.2) g/dL Albumin 4.5 3.8 (3.5-5.0) g/dL Calcium panel 02/12/24 02/12/24 Range/Units 14:35 17:46 Calcium 10.0 9.2 (8.4-10.2) mg/dL Phosphorus 3.6 (2.5-4.5) mg/dL Albumin 4.5 3.8 (3.5-5.0) g/dL Pituitary panel 02/12/24 02/12/24 Range/Units 14:35 17:46 Sodium 134 L 133 L (137-145) mmol/L Potassium 4.1 3.0 L (3.5-5.1) mmol/L Chloride 95 L 94 L (98-107) mmol/L Carbon Dioxide 23 27 (22-30) mmol/L BUN 30 H 31 H (7-17) mg/dL Creatinine 1.23 H 1.04 (0.52-1.04) mg/dL Glucose 105 H 112 H (74-99) mg/dL Calcium 10.0 9.2 (8.4-10.2) mg/dL Adrenal panel 02/12/24 02/12/24 Range/Units 14:35 17:46 Sodium 134 L 133 L (137-145) mmol/L Potassium 4.1 3.0 L (3.5-5.1) mmol/L Chloride 95 L 94 L (98-107) mmol/L Carbon Dioxide 23 27 (22-30) mmol/L BUN 30 H 31 H (7-17) mg/dL Creatinine 1.23 H 1.04 (0.52-1.04) mg/dL Glucose 105 H 112 H (74-99) mg/dL Calcium 10.0 9.2 (8.4-10.2) mg/dL Total Bilirubin 1.0 0.6 (0.2-1.3) mg/dL AST 47 H 42 H (14-36) U/L ALT 35 H 33 (4-34) U/L Alkaline Phosphatase 72 83 (38-126) U/L Total Protein 7.5 6.5 (6.3-8.2) g/dL Albumin 4.5 3.8 (3.5-5.0) g/dL
[2024-02-13] MEDS: SODIUM CHLORIDE 0.9% 1,000 ML with POTASSIUM CHLORIDE 10 MEQ IV SCH (09:00)
[2024-02-13 10:05] LABS: ALT 26 U/L (8-44); AST 32 U/L (13-35); Albumin 3.7 g/dL (3.8-4.9); Albumin/Globulin Ratio 1.68 Ratio (1.60-3.17); Alkaline Phosphatase 71 U/L (41-126); Blood Urea Nitrogen 20.7 mg/dL (9.0-27.0); Calcium 9.3 mg/dL (8.7-10.3); Carbon Dioxide 26.7 mmol/L (21.6-31.8); Chloride 99 mmol/L (96-109); Globulin 2.2 g/dL (1.6-3.3); Glucose 101 mg/dL (70-110); Potassium 3.3 mmol/L (3.5-5.5); Sodium 138 mmol/L (135-145); Total Bilirubin 0.3 mg/dL (0.3-1.2); Total Protein 5.9 g/dL (6.2-8.2)
[2024-02-13] MEDS: ALPRAZolam 0.5 MG TAB PO SCH (10:27)
[2024-02-13] MEDS: ESCITALOPRAM 10 MG TAB PO SCH (10:27)
[2024-02-13] MEDS: DESVENLAFAXINE SUCCINATE 50 MG TAB.ER.24H PO SCH (10:27)
[2024-02-13] MEDS: SUCRALFATE 1 GM TAB PO SCH (10:28)
[2024-02-13] MEDS: POTASSIUM CHLORIDE 10 MEQ in WATER FOR INJECTION 1 100ML.BAG IVPB SCH (10:33)
--- NOTE | 2024-02-13 13:22 | P.PN ---
Subjective Progress Note Date: 02/13/24 No acute events overnight. No nausea no vomiting. No abdominal pain. No fevers or chills. No shortness of breath or chest pain. No numbness tingling or weakness of her bilateral upper or lower extremities. No palpitations. Objective - Vital Signs Vital signs: Vital Signs Temp 97.7 F 02/13/24 06:59 Pulse 87 02/13/24 06:59 Resp 17 02/13/24 06:59 BP 92/64 02/13/24 06:59 Pulse Ox 98 02/13/24 06:59 FiO2 Intake & Output 02/12/24 02/13/24 02/13/24 18:59 06:59 18:59 Weight 102.058 kg Other: # Voids 3 # Bowel Movements 0 - Exam Gen: AxO, NAD Pulm: non-labored respirations Abd: Soft, nontender, nondistended. No guarding/rebound/rigidity Extrem: no edema seen - Labs CBC & Chem 7: 02/12/24 14:35 02/13/24 05:03 Labs: Abnormal Lab Results - Last 24 Hours (Table) 02/12/24 02/12/24 02/13/24 Range/Units 14:35 17:46 05:03 Sodium 134 L 133 L (137-145) mmol/L Potassium 3.0 L 3.3 L (3.5-5.1) mmol/L Chloride 95 L 94 L (98-107) mmol/L Anion Gap 12.30 H (4.00-12.00) mmol/L BUN 30 H 31 H (7-17) mg/dL Creatinine 1.23 H (0.52-1.04) mg/dL BUN/Creatinine Ratio 23.00 H (12.00-20.00) Ratio Glucose 105 H 112 H (74-99) mg/dL Magnesium 1.0 L (1.6-2.3) mg/dL AST 47 H 42 H (14-36) U/L ALT 35 H (4-34) U/L Total Protein 5.9 L (6.2-8.2) g/dL Albumin 3.7 L (3.8-4.9) g/dL Assessment and Plan Assessment: Patient is a 68-year-old female with a past medical history of Taylor-en-Y gastric bypass who presents with hypomagnesemia as well as hypokalemia Plan: -Diet as tolerated -Continue IV replacement of electrolyte abnormality -PRN pain and nausea control -DVT/GI PPx -No acute surgical intervention Zbigniew Schneider MD General Surgery
[2024-02-13 14:02] LABS: Basophils # (A) 0.1 k/uL (0-0.2); Basophils % (A) 1 %; Eosinophils % (A) 0 %; HCT 42.6 % (34.0-46.0); HGB 13.8 gm/dL (11.4-16.0); Lymphocytes # (A) 1.9 k/uL (1.0-4.8); Lymphocytes % (A) 26 %; MCH 30.7 pg (25.0-35.0); MCHC 32.3 g/dL (31.0-37.0); MCV 95.1 fL (80.0-100.0); Mean Platelet Volume 7.8; Monocytes # (A) 0.5 k/uL (0-1.0); Monocytes % (A) 7 %; Neutrophils # (A) 4.6 k/uL (1.3-7.7); Neutrophils % (A) 64 %; Platelet Count 286 k/uL (150-450); RBC 4.48 m/uL (3.80-5.40); RDW 13.7 % (11.5-15.5); WBC 7.2 k/uL (3.8-10.6)
[2024-02-13 14:46] LABS: Magnesium 1.8 mg/dL (1.5-2.4); Phosphorus 3.5 mg/dL (2.4-5.1)
[2024-02-14] MEDS: LEVOTHYROXINE 112 MCG TAB PO SCH (06:05)
[2024-02-14 08:22] VITALS: BP 120/77; PULSE 75; RESP 16; TEMP 98.2
[2024-02-14 10:12] LABS: Magnesium 1.5 mg/dL (1.5-2.4); Phosphorus 2.4 mg/dL (2.4-5.1)
[2024-02-14] MEDS: MAGNESIUM SULFATE-D5W PMX 1 GM in DEXTROSE/WATER 1 100ML.BAG IVPB SCH (11:07)
[2024-02-14] MEDS: POTASSIUM CHLORIDE ER 20 MEQ TAB.ER PO SCH (11:10)
[2024-02-14 11:34] LABS: ALT 28 U/L (4-34); AST 36 U/L (14-36); African American GFR (CKD) >90 (>60 ml/min/1.73 sqM); Albumin 3.2 g/dL (3.5-5.0); Albumin/Globulin Ratio 1.3; Alkaline Phosphatase 69 U/L (38-126); Anion Gap 9 mmol/L; Blood Urea Nitrogen 14 mg/dL (7-17); Calcium 8.9 mg/dL (8.4-10.2); Carbon Dioxide 27 mmol/L (22-30); Chloride 101 mmol/L (98-107); Globulin 2.5 g/dL; Glucose 85 mg/dL (74-99); Non-African American GFR(CKD) >90 (>60 ml/min/1.73 sqM); Potassium 3.5 mmol/L (3.5-5.1); Sodium 137 mmol/L (137-145); Total Bilirubin 0.4 mg/dL (0.2-1.3); Total Protein 5.7 g/dL (6.3-8.2)
[2024-02-14] MEDS: POTASSIUM PHOSPHATE 10 MMOL in SODIUM CHLORIDE 0.9% 250 ML IV SCH (12:56)
--- NOTE | 2024-02-14 14:27 | P.DS ---
Providers Date of admission: 02/12/24 17:46 Expected date of discharge: 02/14/24 Attending physician: Shaina Lima Primary care physician: Winston Seals [facility] Course: Patient presented with symptomatic hypomagnesia, magnesium less than 1.0. Potassium dropped to 3.0. Aggressive IV fluid hydration was performed with replacement of potassium and low magnesium. Prior to discharge, electrolytes were corrected. Review of medications include discontinuing diuretic due to dehydration upon admission and discontinued omeprazole to antagonizes magnesium metabolism. Omeprazole switched to Carafate which she tolerated. Patient was stable for discharge. Patient had IV infiltration which was discontinued Patient Condition at Discharge: Fair Plan - Discharge Summary Discharge Rx Participant: No New Discharge Prescriptions: New Sucralfate [Carafate] 1 gm PO BID #30 tablet Continue Levothyroxine Sodium [Synthroid] [facility] Desvenlafaxine Succinate [Pristiq] 100 mg PO DAILY Escitalopram [Lexapro] 10 mg PO DAILY Bariatric Multivitamin 1 tab PO DAILY ALPRAZolam [Xanax] 0.5 mg PO BID Cyclobenzaprine [Flexeril] 5 mg PO TID PRN #9 tablet PRN Reason: Pain Discontinued Omeprazole [PriLOSEC] 40 mg PO DAILY #90 cap Lisinopril/Hydrochlorothiazide [Zestoretic 20-25] 1 tab PO DAILY Discharge Medication List Levothyroxine Sodium [Synthroid] 112 mcg PO AC-BRKFST 01/01/16 [History] Desvenlafaxine Succinate [Pristiq] 100 mg PO DAILY 03/23/19 [History] ALPRAZolam [Xanax] 0.5 mg PO BID 01/11/24 [History] Cyclobenzaprine [Flexeril] 5 mg PO TID PRN #9 tablet 01/14/24 [Rx] Bariatric Multivitamin 1 tab PO DAILY 02/12/24 [History] Escitalopram [Lexapro] 10 mg PO DAILY 02/12/24 [History] Sucralfate [Carafate] 1 gm PO BID #30 tablet 02/14/24 [Rx] Follow up Appointment(s)/Referral(s): Jeff Seals MD [Primary Care Provider] - 1-2 days [place], [place] [NON-STAFF] - 02/17/24 Patient Instructions/Handouts: Potassium Content of Foods List (DC), Hypo kalemia (DC), Hypomagnesemia (DC) Activity/Diet/Wound Care/Special Instructions: Do not fill omeprazole prescription. Use new prescription Carafate. Discontinue blood pressure medication due to severe dehydration and kidney abnormality Discharge Disposition: HOME SELF-CARE
== END 2024-02-14 15:08 | disposition home or self-care (01) ==
LOC: EC 14:09 → 6NMEDSUR 17:46
PROVIDERS: ADMIT Surgery Plastic and Reconstructive Surgery; ATTEND Surgery Plastic and Reconstructive Surgery
DX: E83.42 Hypomagnesemia (principal); E83.39 Other disorders of phosphorus metabolism; K21.9 Gastro-esophageal reflux disease without esophagitis; E78.5 Hyperlipidemia, unspecified; G89.29 Other chronic pain; M54.50 Low back pain, unspecified; F32.A Depression, unspecified; F41.0 Panic disorder [episodic paroxysmal anxiety]; E03.9 Hypothyroidism, unspecified; E53.8 Deficiency of other specified B group vitamins; M79.7 Fibromyalgia; M19.90 Unspecified osteoarthritis, unspecified site; R39.15 Urgency of urination; M48.00 Spinal stenosis, site unspecified; M32.9 Systemic lupus erythematosus, unspecified; R11.0 Nausea; E86.0 Dehydration; K22.4 Dyskinesia of esophagus; M35.00 Sjogren syndrome, unspecified; I11.9 Hypertensive heart disease without heart failure; E66.01 Morbid (severe) obesity due to excess calories; Z68.41 Body mass index [BMI] 40.0-44.9, adult; Z98.84 Bariatric surgery status; Z79.82 Long term (current) use of aspirin; Z79.890 Hormone replacement therapy; Z79.899 Other long term (current) drug therapy; Z88.5 Allergy status to narcotic agent
CPT/HCPCS: 96366 ×3; 96367; 96365; 99285; 36415; 93005; 80053 ×3; 83605; 83735 ×3; 84100 ×3; 85025; 85027; G0378 ×3; J3475 ×2; J3480

== ENCOUNTER → 2024-02-17 | Outpatient (CLI) | payer MEDICARE ==
[2024-02-17 15:53] VITALS: BP 130/84; PULSE 109; RESP 16; TEMP 98.1; BMI 36.5
--- NOTE | 2024-02-17 16:17 | P.BASOAP ---
Subjective Progress Note Date: 02/17/24 Her mouth is really bad from [place]. She is uding premier protein. She has problems. Try dilute premier protein. May have reaction. Needs a straw, No omeprazole Objective - Vital Signs Vital signs: Vital Signs Temp 98.1 F 02/17/24 15:30 Pulse 109 H 02/17/24 15:30 Resp 16 02/17/24 15:30 BP 130/84 02/17/24 15:30 Pulse Ox FiO2 Intake & Output 02/16/24 02/17/24 02/17/24 18:59 06:59 18:59 Weight 101.151 kg Assessment/Plan Plan: Date: 02/17/24 Initial Weight: 111.13 kg Initial BMI: 40.1 Current Weight: 101.151 kg Current BMI: 36.5 Type of Surgery: Taylor-en-Y Gastric Bypass Total Volume in Band: 0 Previous Volume: Volume Removed: Volume Added: Band Size:
== END | disposition home or self-care (01) ==
LOC: BARWHC3 14:10
PROVIDERS: ATTEND Surgery Plastic and Reconstructive Surgery
DX: E66.01 Morbid (severe) obesity due to excess calories (principal); Z53.9 Procedure and treatment not carried out, unspecified reason
CPT/HCPCS: 99211

== ENCOUNTER → 2024-04-06 | Outpatient (CLI) | payer MEDICARE ==
[2024-04-06 15:23] VITALS: BP 116/67; PULSE 88; RESP 14; TEMP 98.5; BMI 33.0
--- NOTE | 2024-04-06 15:38 | P.BASOAP ---
Subjective Progress Note Date: 04/06/24 Highest 252 pounds. She lost 50 pounds. SHe is now at a plateau. She is not checking her calories. She is not keeping a journal. She is adding salt to her diet and doing crunchy. She is not doing creamer. She is not doing sugar. She can go back on vitamins. Objective - Vital Signs Vital signs: Vital Signs Temp 98.5 F 04/06/24 14:59 Pulse 88 04/06/24 14:59 Resp 14 04/06/24 14:59 BP 116/67 04/06/24 14:59 Pulse Ox FiO2 Intake & Output 04/05/24 04/06/24 04/06/24 18:59 06:59 18:59 Weight 91.626 kg Assessment/Plan Plan: Date: 04/06/24 Initial Weight: 111.13 kg Initial BMI: 40.1 Current Weight: 91.626 kg Current BMI: 33.0 Type of Surgery: Total Volume in Band: 0 Previous Volume: Volume Removed: Volume Added: Band Size:
[2024-04-07 07:42] LABS: HCT 50.3 % (34.0-46.0); HGB 16.2 gm/dL (11.4-16.0); MCH 31.3 pg (25.0-35.0); MCHC 32.2 g/dL (31.0-37.0); MCV 97.2 fL (80.0-100.0); Mean Platelet Volume 9.9; Platelet Count 337 k/uL (150-450); RBC 5.18 m/uL (3.80-5.40); RDW 14.9 % (11.5-15.5); WBC 8.4 k/uL (3.8-10.6)
[2024-04-07 07:49] LABS: Prothrombin Time 10.5 sec (10.0-12.5)
== END ==
LOC: BARWHC3 14:14
PROVIDERS: ATTEND Surgery Plastic and Reconstructive Surgery
DX: E66.01 Morbid (severe) obesity due to excess calories (principal); D50.8 Other iron deficiency anemias; E89.1 Postprocedural hypoinsulinemia; K90.89 Other intestinal malabsorption; E55.9 Vitamin D deficiency, unspecified; N19 Unspecified kidney failure; K74.1 Hepatic sclerosis; K50.90 Crohn's disease, unspecified, without complications; T56.894A Toxic effect of other metals, undetermined, initial encounter; Z88.5 Allergy status to narcotic agent; Z68.33 Body mass index [BMI] 33.0-33.9, adult; Z46.51 Encounter for fitting and adjustment of gastric lap band; Z98.84 Bariatric surgery status; Z90.3 Acquired absence of stomach [part of]
CPT/HCPCS: 85027; 85610; 83036; G0463; 80053; 80061; 82306; 82525; 82607; 82728; 82746; 83540; 83550; 83735; 83970; 84100; 84134; 84255; 84425; 84443; 84590; 84630; 85730; 99211

== ENCOUNTER → 2024-10-05 | Outpatient (CLI) | payer MEDICARE ==
[2024-10-05 16:04] VITALS: BP 145/75; PULSE 91; RESP 16; TEMP 98.5; BMI 28.0
--- NOTE | 2024-10-05 16:22 | P.BASOAP ---
Subjective Progress Note Date: 10/05/24 She has lost 80 pounds. She is pleased. She wants to get down to 147 pounds. She is 9 months out. She is a different person. She reports more energy. Botox in bladder. She is seeing back doctor for injections. Back and bladder. She is 60 grams to 70 grams. NO GERD. Need labs. Objective - Vital Signs Vital signs: Vital Signs Temp 98.5 F 10/05/24 15:54 Pulse 91 10/05/24 15:54 Resp 16 10/05/24 15:54 BP 145/75 10/05/24 15:54 Pulse Ox FiO2 Intake & Output 10/04/24 10/05/24 10/05/24 18:59 06:59 18:59 Weight 77.564 kg Assessment/Plan Plan: Date: 10/05/24 Initial Weight: 111.13 kg Initial BMI: 40.1 Current Weight: 77.564 kg Current BMI: 28.0 Type of Surgery: Total Volume in Band: 0 Previous Volume: Volume Removed: Volume Added: Band Size:
== END ==
LOC: BARWHC3 14:51
PROVIDERS: ATTEND Surgery Plastic and Reconstructive Surgery
DX: E66.01 Morbid (severe) obesity due to excess calories (principal); Z68.28 Body mass index [BMI] 28.0-28.9, adult; Z88.5 Allergy status to narcotic agent
CPT/HCPCS: 99211

== ENCOUNTER → 2024-10-14 | Outpatient (CLI) | payer MEDICARE ==
[2024-10-14 15:25] LABS: HCT 44.8 % (37.2-46.3); MCH 31.9 pg (27.0-32.0); MCHC 33.5 g/dL (32.0-37.0); MCV 95.3 FL (80.0-97.0); Mean Platelet Volume 10.4 FL (9.5-12.2); NRBC Per 100 WBC 0 X 10*3/uL (0.00-0.01); Platelet Count 275 X 10*3/uL (140-440); RDW 14.2 % (11.5-14.5); WBC 6.75 X 10*3/uL (4.50-10.00)
[2024-10-14 16:07] LABS: % Iron Saturation 19.89 (12.00-45.00); Chol/HDL Ratio 2.27 Ratio; Iron 74 UG/DL (50-170); LDL Cholesterol,Calculated 57.7 mg/dL (0.0-131.0); Magnesium 1.8 mg/dL (1.5-2.4); Phosphorus 2.7 mg/dL (2.4-5.1); Total Iron Binding Capacity 372 UG/DL (228-460)
[2024-10-14 16:08] LABS: ALT 51 U/L (8-44); AST 31 U/L (13-35); Albumin 4.4 g/dL (3.8-4.9); Albumin/Globulin Ratio 1.91 Ratio (1.60-3.17); Alkaline Phosphatase 106 U/L (41-126); Blood Urea Nitrogen 20.7 mg/dL (9.0-27.0); Carbon Dioxide 27.9 mmol/L (21.6-31.8); Chloride 100 mmol/L (96-109); Globulin 2.3 g/dL (1.6-3.3); Glucose 87 mg/dL (70-110); Potassium 3.5 mmol/L (3.5-5.5); Sodium 142 mmol/L (135-145); Total Bilirubin 0.5 mg/dL (0.3-1.2); Total Protein 6.7 g/dL (6.2-8.2)
[2024-10-14 16:35] LABS: Prealbumin 17.5 mg/dL (18.0-42.0)
== END | disposition home or self-care (01) ==
LOC: LABPAT 09:06
PROVIDERS: ATTEND Surgery Plastic and Reconstructive Surgery
DX: E66.01 Morbid (severe) obesity due to excess calories (principal); E89.1 Postprocedural hypoinsulinemia; D50.8 Other iron deficiency anemias; D50.9 Iron deficiency anemia, unspecified; K91.2 Postsurgical malabsorption, not elsewhere classified; E44.0 Moderate protein-calorie malnutrition; E45 Retarded development following protein-calorie malnutrition; E55.9 Vitamin D deficiency, unspecified; K74.1 Hepatic sclerosis; N19 Unspecified kidney failure; T56.894A Toxic effect of other metals, undetermined, initial encounter; K50.90 Crohn's disease, unspecified, without complications
CPT/HCPCS: 80053; 80061; 82306; 82525; 82607; 82728; 82746; 83540; 83550; 83735; 83970; 84100; 84134; 84255; 84425; 84443; 84590; 84630; 85027; 85730

== ENCOUNTER → 2025-05-25 | Outpatient (CLI) | payer MEDICARE ==
--- NOTE | 2025-05-25 16:34 | MM ---
Reason for Exam: Screening (asymptomatic). Last mammogram was performed 1 year(s) and 9 month(s) ago. Patient History: Menarche at age 12. First Full-Term at age 20. Postmenopausal. Patient has history of breast feeding. Estrogen for 4 years from age 49 until age 53. Progesterone for 4 years from age 49 until age 53. 1991, Reduction on the Right side. 1991, Reduction on the Left side. Risk Values: Jaclyn 5 year model risk: 1.5%. NCI Lifetime model risk: 4.8%. Prior Study Comparison: 09/25/2020 Bilateral Screening Mammogram, [facility]. 02/26/2022 Bilateral Screening Mammogram, [facility]. 09/08/2023 Bilateral MG 3D screening mammo w/cad, [facility]. Tissue Density: There are scattered areas of fibroglandular density. Findings: Analyzed By CAD. Chronic nodularity on both sides. There is no suspicious group of microcalcifications or new suspicious mass in either breast. Overall Assessment: Benign, BI-RAD 2 Management: Screening Mammogram of both breasts in 1 year. Patient should continue monthly self-breast exams. A clinical breast exam by your physician is recommended on an annual basis. This exam should not preclude additional follow-up of suspicious palpable abnormalities. Note on Jaclyn scores and lifetime risk: 1. A Jaclyn score greater than 3% is considered moderate risk. If this is the case, consider specialist referral to assess eligibility for a risk reducing agent. 2. If overall lifetime risk for the development of breast cancer is 20% or higher, the patient may qualify for future screening with alternating mammogram and breast MRI. [facility], , 05/25/2025 4:30 PM. Electronically signed and approved by: Paulina Reyes M.D. Radiologist
--- NOTE | 2025-05-25 16:48 | BD ---
EXAMINATION TYPE: Axial Bone Density DATE OF EXAM: 05/25/2025 CLINICAL HISTORY: 69 years old Female. ICD-10 CODE: M85.89 DISORDER OF BONE , Additional History: Height: 65 Weight: 165.7 FRAX RISK QUESTIONS: Alcohol (3 or more units per day): no Family History (Parent hip fracture): no Glucocorticoids (More than 3mos): no (Ex: prednisone, prednisolone, methylprednisolone, dexamethasone, and hydrocortisone). History of Fracture in Adulthood: yes Secondary Osteoporosis: 1. Type 1 Diabetes: no 2. Hyperthyroidism: no 3. Menopause before 45: yes 4. Malnutrition: no 5. Chronic liver disease: no Rheumatoid Arthritis: no Current Tobacco Use: no RISK FACTORS HISTORY OF: Surgery to Spine/Hip(right/left)/Wrist (right/left): right hip When: 2 1/2 years ago MEDICATIONS: Thyroid Medications: thyroid How Lon years EXAM MEASUREMENTS: Bone mineral densitometry was performed using the [employer] System. Bone mineral density as measured about the Lumbar spine is: ----- L1-L4(G/cm2): 1.054 T Score Values are as follows: ----- L1: -2.3 ----- L2: -1.4 ----- L3: -0.2 ----- L4: -0.8 ----- L1-L4: -1.0 Z Score Values are as follows: ----- L1: -1.0 ----- L2: -0.1 ----- L3: 1.1 ----- L4: 0.5 ----- L1-L4: 0.3 Bone mineral density has: decreased -4.3 % since study of: 09.29.2022 Bone mineral density about the L hip (g/cm2): 0.876 T Score values are as follows: -----L Neck: -0.9 -----L Total: -1.0 Z Score values are as follows: -----L Neck: 0.5 -----L Total: 0.2 Bone mineral density has: decreased -3.5 % since study of: 09.29.2022 FRAX%s: The graph provided illustrates a 13.7% chance for a major osteoporotic fx and a 1.2% chance f or the hips probability for fx in 10 years time. IMPRESSION: Normal (Values between +1 and -1 indicate normal bone mass). However, note that measurements are at t he cusp of osteopenia at both lumbar spine and left hip. Consider repeating this study in 5 years or sooner if there is some new clinical indication. NOTE: T-SCORE=SD OF THE YOUNG ADULT MEAN. [facility], , 05/25/2025 4:45 PM
== END | disposition home or self-care (01) ==
LOC: RADBDWWP 14:58
PROVIDERS: ATTEND Family Medicine
DX: Z12.31 Encounter for screening mammogram for malignant neoplasm of breast (principal); M85.89 Other specified disorders of bone density and structure, multiple sites; Z78.0 Asymptomatic menopausal state; R92.323 Mammographic fibroglandular density, bilateral breasts
CPT/HCPCS: 77063; 77067; 77080